=== PATIENT | female | born 2000 | race Caucasian/White ===

== ENCOUNTER 2024-10-02 21:55 | Outpatient (CLI) | payer MEDICARE, SELFPAY | END 2024-10-02 21:56 | disposition home or self-care (01) | LOC: AMB 10-03 14:19 | PROVIDERS: PCP Family Medicine; Visit Provider Emergency Medicine | DX: R51.9 Headache, unspecified (principal); R55 Syncope and collapse | CPT/HCPCS: A0425; A0433 ==

== ENCOUNTER 2024-10-25 08:33 | Emergency (ER) | payer OTHER, SELFPAY ==
--- OUTSIDE RECORDS SUMMARY | 2024-10-03 00:53 | XMS_ITS | Encounter Summary ---
Author Organization [facility] Address [address] [place] [id number] Care Team Providers Care Emergency Nurse Name Role Phone Elsewhere, Pcp Primary Care Provider Unavailabl e Reason for Visit * Reason Comments Respiratory Distress Pain Encounter Details Date Type Department Care Team (Late st Contact Info) Description 10/03/2024 12:53 AM CDT - 10/03/2024 6:39 AM CDT Emergency [facility] Emergency Department [address] [place] [phone] Emilia Ga M.D., M.S. [address] [place] [phone] Migraine Headache (Primary Dx); Pain Back Discharge Disposition: Home or Self Care Social History Tobacco Use Types Packs/Day Years Used Date Smoking Tobacco: Never Assessed Dental Answer Date Recorded Dental: Regular Dentist Unknown 10/04/19 25 Comments Unknown Sex and Gender Information Value [...] 08/23/2024 SUMAtriptan (Imitrex) 25 mg tablet Take 1 tablet (25 mg total) by mouth as needed for migraine. May repeat dose once in 2 hours if migraine is unresolved. Do not exceed 200 mg in 24 hours. 9 tablet 10/03/2024 5:05 AM CDT 10/03/2024 SUMAtriptan (Imitrex) 25 mg tablet Take 25 mg by mouth as needed for migraine. Take 1 tablet (25 mg) by mouth every 2 hours as needed for migraine For adults: may repeat x1 dose after 2 hours if needed; MAX 2 doses/24 hours 08/23/2024 08/28/2025 documented as of this encounter Progress Notes [...] was at risk for self extubation, ED oncology consultant okayed extubation, patient extubated successfully to 4LPM capnography cannula. Patient able to vocalize and is continuing to awake post sedation. Will continue to monitor while in ED. SpO2 stable at 99% on 4LPM. Suction and bag mask at bedside if needed. * Kristie Pineda M.S.W., LKeithS.W. - 10/03/2024 1:57 AM CDT SUBJECTIVE Patient presents as a adult extremis page from the [facility] area for medical workup. Patientis not [...] a adult extremis. The patient presented via [facility]. ASSESSMENT / PLAN ASSESSMENT The patient appears to be sedated and intubated. A full assessment is not completed at this time due to the nature of the urgent medical evaluation. The patient's mother, Daniela, is coping appropriately to the situation. She shares she and the patient are currently staying in a camper and are on the road, moving to [place]. She reports not needing social work support [...] remove the spinal tumors in 2023 in [place], [place]. Mother states that patient has been in a lot of pain and since then and that she has had trouble getting out of bed with pain as well as nausea and vomiting. They are from [facility] and are stopping in this area to visit with family before moving to [place]. Mom states that tonight she was having [...] emergency department as a medical resuscitation fromthe [facility]. On arrival to the scene, EMS [...] 17 Blood Pressure 10/03/24 0058 111/78 SpO2 10/03/24 005 94 % Pain Score -- PHYSICAL EXAMINATION [...] department as a medical resuscitation from the [facility]. She has a history of MS [...] patient and her mother are currently visiting [place] from [facility] to visit the patient's grandmother. Her [...] also try to obtain medical records from [place]. Please see below for further ED course. [...] of the spine in February 2024 at [facility]. As noted in a family medicine note [...] U Negative Ketone, POCT, U Negative Specific Gorham, POCT, U 1.010 Blood, POCT, U Negative [...] along with the tumors as above in [place], [place] in February 2024. At that time, the spinal tumors were reportedly removed, but the plan was to watch thebrain tumors. Since the diagnosis, Bhakti has struggled with pain. Her home pain regimen includes baclofen 5 mg 3 times a day, gabapentin 300 mg 3 times a day, and citalopram 20 mg daily. Patient and mother are currently in [place] visiting family. While there, the patient was [...] we will try to obtain records from [place]. We have transitioned her to propofol for sedation; barring any indication for continued intubation on advanced imaging, I anticipate extubation in the ED to facilitate better evaluation and management of the patient's current challenges. ED Course as of 10/04/24 1412 ThuOctober 03, 2024 0146 Outside records available. Patient s/p laminectomy due to multiple meningiomas on 02/26 at [facility]. Per an E visit family medicine note [...] mg/dL 10/03/2024 4:37 AM CDT PCED Specific Gorham, POCT, U 1.010 1.005 - 1.030 10/03/2024 [...] - DEVICE Fi nal Result POC RST [facility] 200 [place] [address], [facility] PCED [facility] POC 200 [place] [address] * Dipstick, Urine (10/03/2024 3:38 AM CDT) [...] URINE ORDERABLES Final Result Performing Organization Address City/[facility]/ZIP Co de Phone Number [facility] 200 [place] [address], [facility] 200 [place] [address] * Osmolality, Urine (10/03/2024 3:38 AM CDT) Osmolality, U 210 150 - 1150 mOsm/kg 10/03/2024 11:04 AM CDT DT Urine 10/03/2024 3:38 AM CDT 10/03/2024 10:36 AM CDT Emilia Ga M.D., M.S. LAB URINE ORDERABLES Final Result Performing Organization Address City/[facility]/ZIP Co de Phone Number [facility] 200 [place] [address], [facility] 200 [place] [address] * pH, Urine (10/03/2024 3:38 AM CDT) pH, U 6.7 4.5 - 8.0 10/03/2024 11: 04 AM CDT DT Urine 10/03/2024 3:38 AM CDT 10/03/2024 10:36 AM CDT us Emilia Ga M.D., M.S. LAB URINE ORDERABLES Final Result Performing Organization Address City/[facility]/ZIP Co de Phone Number [facility] [address] [place] [phone] [place] [address] 200 [place] [address] * Microscopic Automated (10/03/2024 3:38 AM CDT) Microscopy Normal 10/03/2024 10:49 AM CDT DTL RBC None Seen <3 /hpf 10/03/2024 10:49 AM CDT DTL WBC None Seen /hpf 10/03/2024 10:49 AM CDT DTL Comment: ----REFERENCE VALUE---- <4 (Males) <11 (Females) Urine 10/03/2024 3:38 AM CDT 10/03/2024 10:36 AM CDT Emilia Ga M.D., M.S. LAB URINE ORDERABLES Final Result Performing Organization Address [facility] Co de Phone Number [facility] 200 [place] [address] * Bacterial Culture, Aerobic + Susceptibility, Urine (10/03/2024 3:38 AM CDT) Urine Culture No growth after 1 day of incubation. 10/04/2024 7:42 AM CDT DTL Urine (Urine, Straight Catheter) 10/03/2024 3:38 AM CDT 10/03/2024 11:23 AM CDT Comment:Specimen Source Site : Urine Emilia Ga M.D., M.S. LAB MICROBIOLOGY - G ENERAL ORDERABLES Final Result Performing Organization Address [facility] Co de Phone Number [facility] 200 [place] [address] * Urinalysis, with Microscopic: Urine, Straight Catheter [...] CDT 10/03/2024 10:35 AM CDT us Emilia aG M.D., M.S. LAB URINE ORDERABLES Final Result [facility] [address] [place] [address], [facility] DTL [facility] [address] [place] [address] * CT Lumbar Spine without IV Contrast [...] Reported [facility] the spine [facility]/27/2024. [...] Spine, Neuroradiolo gy RST LOS, Neuroradiology ARZ [facility], Neuroradiology [facility]LA [facility] N/A Computed Tomography, Compute d Tomography Impressions [...] Reported surgical history includes laminectomy T4-T7 at [facility] for meningioma removal involving the spine [...] Anatomical Region Laterality Modality Head, Neuroradiology RST [facility] , Neuroradiology ARZ [facility], Neuroradiology FLA [facility] N/A Computed Tomography, Compute d Tomography 10/03/2024 [...] vertex meningioma. us Emilia Ga M.D., M.S. [facility] CT PROCEDURES Fi nal Result * DX [...] bibasilar atelectasis. us Emilia Ga M.D., M.S. [facility] DIAGNOSTIC IMAGI NG PROCEDURES Final Result * ECG 12 Lead (10/03/2024 1:08 AM CDT) Ventricular Rate ECG/Min 71 BPM MUSE NC Interval 142 ms MUSE QRSD Interval 88 ms MUSE QT Interval 400 ms MUSE QTC Interval 434 ms MUSE P Cornelia 40 degrees MUSE R Cornelia 49 degrees MUSE T Wave Cornelia 32 degrees MUSE 10/03/2024 1:08 AM CDT 10/03/2024 1:14 AM CDT Impressions MUSE - 10/03/2024 1:14 AM CDT Normal sinus rhythm Nonspecific T wave abnormality No previous ECGs available Reviewed by REJI Floyd Narrative Procedure Note Lee Castillo M.B.B.S. - 10/03/2024 IMPRESSION: Normal sinus rhythm Nonspecific T wave abnormality No previous ECGs available Reviewed by REJI Floyd Emilia Ga M.D., M.S. ECG ORDERABLES Ira l Result Performing Organization Address City/[facility] Co de Phone Number MUSE NA * hCG (Human Chorionic Gonadotropin), Quantitative, (10/03/2024 1:04 AM CDT) HCG, Quantitative, , P 1.0 <5 IU/L 10/03/2024 1:31 AM CDT STMA Blood (Blood, Venous) 10/03/2024 1:04 AM CDT 10/03/2024 1:12 AM CDT Emilia Ga M.D., M.S. LAB BLOOD ADD-ON Fin al Result [facility] [address] [place] [address], [facility] STMA [facility] [address] [place] [address] * Magnesium (10/03/2024 1:04 AM CDT) Pathologist [facility] Emergency Department Magnesium, P 1.9 1.7 - 2.3 mg/dL 10/03/2024 1:55 AM CDT DTL Blood (Blood, Venous) 10/03/2024 1:04 AM CDT 10/03/2024 1:33 AM CDT Emilia Ga M.D., M.S. LAB BLOOD ADD-ON Fin al Result [facility] [address] [place] [address], [facility] [address] [place] [address] * Lipase (10/03/2024 1:04 AM CDT) Pathologist [facility] Emergency Department Lipase, S 17 13 - 60 U/L 10/03/2024 1: 56 AM CDT DTL Blood (Blood, Venous) 10/03/2024 1:04 AM CDT 10/03/2024 1:33 AM CDT Emilia Ga M.D., M.S. LAB BLOOD ADD-ON Fin al Result [facility] [address] [place] [address], [facility] [address] [place] [address] * CRP (C-Reactive Protein) (10/03/2024 1:04 AM CDT) Pathologist [facility] Emergency Department C-Reactive Protein (CRP), S <3.0 <5.0 mg/L 10/03/2024 1:56 AM CDT DT Blood (Blood, Venous) 10/03/2024 1:04 AM CDT 10/03/2024 1:33 AM CDT Emilia Ga M.D., M.S. LAB BLOOD ADD-ON Fin al Result [facility] [address] [place] [address], [facility] [address] [place] [address] * CK (Creatine Kinase) (10/03/2024 1:04 AM CDT) Creatine Kinase (CK), S 53 26 - 192 U/L 10/03/2024 1:56 AM CDT DTL Blood (Blood, Venous) 10/03/2024 1:04 AM CDT 10/03/2024 1:33 AM CDT us Emilia Ga M.D., M.S. LAB BLOOD ADD-ON Fin al Result [facility] [address] [place] [address], [facility] DTL [facility] [address] [place] [address] * (ABNORMAL) Basic Metabolic Panel (10/03/2024 1:04 AM CDT) Pathologist [facility] Emergency Department Potassium, P 3.9 3.6 - 5.2 mmol/L [...] M.S. LAB BLOOD ADD-ON Fin al Result [facility] [address] [place] [address], [facility] [address] [place] [address] * (ABNORMAL) CBC with Differential, Blood (10/03/2024 1:04 AM CDT) Hemoglobin 12.5 11.6 - 15.0 g/dL 10/03/2024 [...] M.S. LAB BLOOD ADD-ON Fin al Result [facility] [address] [place] [address] [facility] [address] [place] [address] * Troponin T, Baseline with 2 Hour/6 Hour Reflex Biomarker Panel (10/03/2024 1:04 AM CDT) Troponin T, Baseline, 5th gen <6 <=10 ng/L 10/03/2024 1:31 AM CDT STMA Blood (Blood, Venous) 10/03/2024 1:04 AM CDT 10/03/2024 1:12 AM CDT Emilia Ga M.D., M.S. LAB BLOOD TROPONIN F inal Result Performing Organization Address [facility]/ZIP Co de Phone Number [facility] [address] [place] [address], [facility] [address] [place] [address] * pH (10/03/2024 1:03 AM CDT) pH 7.41 7.35 - 7.45 pH 10/03/2024 1:10 AM CDT STMA Blood 10/03/2024 1:03 AM CDT 10/03/2024 1:08 AM CDT Emilia Ga M.D., M.S. LAB HISTORICAL ORDER S Final Result [facility] [address] [place] [address], [facility] 200 [place] [address] * (ABNORMAL) Calcium, Ionized (10/03/2024 1:03 AM CDT) [facility] Calcium, Ionized, B 4.39(L) 4.65 - 5.30 mg/dL 10/03/2024 1:12 AM CDT STMA Blood (Blood, Venous) 10/03/2024 1:03 AM CDT 10/03/2024 1:08 AM CDT Emilia Ga M.D., M.S. LAB BLOOD NON ADD-ON Final Result Performing Organization Address City/[facility]/ZIP Co de Phone Number [facility] [address] [place] [address], [facility] 200 [place] [address] * Lactate for Sepsis with Reflex, POCT (10/03/2024 1:03 AM CDT) [facility] Lactate, POCT 0.66 0.50 - 2.20 mmol/L 10/03/2024 1:15 AM CDT PCLX Blood (Blood, Venous) 10/03/2024 1:03 AM CDT 10/03/2024 1:03 AM CDT Emilia Ga M.D., M.S. LAB POCT ORDERABLES - DEVICE Final Result [facility] [address] [place] [address], [facility] PCLX [facility] POC [address] [place] [address] * (ABNORMAL) Venous Blood Gas and Electrolytes CG8+, POCT (10/03/2024 1:03 AM CDT) [facility] Sample Site, POCT Venline 10/03/2024 1:15 AM [...] ORDERABLES - DEVICE Final Result POC RST [facility] [address] [place] [address], [facility] POC [address] [place] [address] documented in this encounter Visit Diagnoses Diagnosis [...] (New Bag - Prov ider: Jessenia Davis R.N.)0613 (Stopped - Provider: Jessenia Davis R.N.) ondansetron (PF) injection 4 mg (Zofran) (COMPLETED) 4 mg, intravenous, Once, On Thu10/03/24 at 0220, For 1 dose 0220 (Given - Provid er: Jessenia Davis R.N.) prochlorperazine injection 10 mg (Compazine) (COMPLETED) 10 [...] R.N.) documented in this encounter Care Teams Emergency Nurse Relationship Specialty Start Date End Date Elsewhere, Pcp PCP - General Internal Medicine 10/03/24 documented as of this encounter
[2024-10-25] VITALS (8 sets, daily range): BP systolic 114–130; BP diastolic 71–116; PULSE 63–112; RESP 22–36; TEMP 36.4–36.7; O2SAT 94–100; BMI 34.8
--- OUTSIDE RECORDS SUMMARY | 2024-10-25 08:37 | XMS_ITS | Clinical Summary ---
Author Organization [facility] Address [address] [place] [address] Care Team Providers Care Virtualization Engineer Name Role Phone Elsewhere, Pcp Primary Care Provider Unavailabl e Source Comments Patient records contain information from all sites at [facility]. For routine questions regarding patient records, call [phone] during business hours, M-F 8:00 AM - 5:00 PM Central Time. Record requests for emergency care only can be directed to [phone] at any time.[facility] Allergies No known active allergies Medications SUMAtriptan (Imitrex) 25 mg tablet Take 1 tablet (25 mg total) by mouth as needed for migraine. May repeat dose once in 2 hours if migraine is unresolved. Do not exceed 200 mg in 24 hours. 9 tablet 10/03/2024 5:05 AM CDT 10/03/2024 Active baclofen (LioresaL) 5 mg tablet Take 5 mg by mouth 3 (three) times a day. 08/23/2024 Active citalopram (CeleXA) 20 mg tablet Take 20 mg by mouth daily. 08/23/2024 Active SUMAtriptan (Imitrex) 25 mg tablet Take 25 mg by mouth as needed for migraine. Take 1 tablet (25 mg) by mouth every 2 hours as needed for migraine For adults: may repeat x1 dose after 2 hours if needed; MAX 2 doses/24 hours 08/23/2024 08/29/19 Active Encounters Date Type Department Care Team Description 10/03/2024 12:53 AM CDT - 10/03/2024 6:39 AM CDT Emergency [facility] [address] [place] [id number] Emilia Ga M.D., M.S. Migraine Headache (Primary Dx); Pain Back Discharge Disposition: Home or Self Care from Last 3 Months Social History Tobacco Use Types Packs/Day Years Used Date Smoking Tobacco: Never Assessed Dental Answer Date Recorded Dental: Regular Dentist Unknown 10/04/19 25 Comments Unknown Sex and Gender Information Value Date Recorded Sex Assigned at Not on file Legal Sex Female 12:52 AM CDT Gender Identity Not on file Sexual Orientation Not on file Last Filed Vital Signs Vital Sign Reading [...] AM CDT Body Mass Index - - Plan of Treatment Health Maintenance Due Date Last Done Comments Chlamydia and Gonorrhea Screening 2001 HIV Screening 2001 Hepatitis C Screening 2001 Hepatitis B Vaccines (4 of 4 - 4-dose series) 01/11/2002 01/06/2002, 2001, 2001 COVID-19 Vaccine ( season) 2024 Influenza Vaccine (#1) 2024 02/08/2010 Depression Screening (Annual PHQ-2) 05/11/2024 Cervical/Vaginal Cancer Screening 10/28/2026 10/29/2023 DTaP,Tdap,and Td Vaccines (7 - Td or Tdap) 09/25/2028 09/25/2018, 01/05/2014, 06/02/2013, Additional history exists Pneumococcal vaccine (0-49 years) Aged Out 01/02/2003, 01/06/2002, 2001, Additional history exists No longer eligible based on patient's age to complete this topic IPV Vaccines Completed 01/16/2009, 01/2002, 2001 HPV Vaccines Completed 03/30/2024, 11/09, 10/26/2018 Procedures Procedure Name Priority Date/Time Associated Diagnosis Comments HC URINALYSIS AUTO WO MICRO Routine 10/03/2024 4:36 AM CDT DIPSTICK, U STAT 10/03/2024 3:38 AM CDT OSMOLALITY, U STAT 10/03/2024 3:38 AM CDT PH, U STAT 10/03/2024 3:38 AM CDT MICROSCOPIC AUTOMATED STAT 10/03/2024 3:38 AM CDT URINALYSIS WITH MICROSCOPIC STAT 10/03/2024 3:38 AM CDT BACTERIAL CULTURE, AEROBIC + SUSC, URINE STAT 10/03/2024 3:38 AM CDT EXTUBATION STAT [...] CDT ECG STAT 10/03/2024 1:08 AM CDT HUMAN CHORIONIC GONADOTROPIN (HCG), GRZEGORZ, STAT 10/03/2024 1:04 AM CDT MAGNESIUM, S STAT 10/03/2024 1:04 AM CDT LIPASE, S/P STAT 10/03/2024 1:04 AM CDT C-REACTIVE PROTEIN (CRP), S/P STAT 10/03/2024 1:04 AM CDT CREATINE KINASE (CK), S STAT 10/03/2024 1:04 AM CDT BASIC METABOLIC PANEL, S/P STAT 10/03/2024 1:04 AM CDT CBC WITH DIFFERENTIAL, B STAT 10/03/2024 1:04 AM CDT TROPONIN T, BASELINE, 5TH GEN, P STAT 10/03/2024 1:04 AM CDT LACTATE FOR SEPSIS WITH REFLEX, POCT STAT 10/03/2024 1:03 AM CDT VBG & LYTES CG8+, POCT, B STAT 10/03/2024 1:03 AM CDT PH BLOOD GAS STAT 10/03/2024 1:03 AM CDT CALCIUM, IONIZED, S/B STAT 10/03/2024 1:03 AM CDT from Last 3 Months Results * Dipstick, POCT, Urine (10/03/2024 4:36 AM CDT) Pathologist [facility] Glucose, POCT, U Negative Negative mg/dL 10/03/2024 4:37 AM CDT PCED Ketone, POCT, U Negative Negative mg/dL 10/03/2024 4:37 AM CDT PCED Specific [place], POCT, U 1.010 1.005 - 1.030 10/03/2024 [...] 4:36 AM CDT 10/03/2024 4:38 AM CDT Unknown Provider LAB POCT ORDERABLES - DEVICE Fi nal Result Performing Organization Address City/[facility] Co de Phone Number POC RST [facility] OUT[facility] [address] [place] [address], [place] PCED [facility] [address] [place] [address] * Dipstick, Urine (10/03/2024 3:38 AM CDT) [...] URINE ORDERABLES Final Result Performing Organization Address City/[facility]/ZIP Co de Phone Number [facility] [address] [place] [address], [place] DTL [facility] [address] [place] [address] * Microscopic Automated (10/03/2024 3:38 AM CDT) Microscopy Normal 10/03/2024 10:49 AM CDT DTL RBC None Seen <3 /hpf 10/03/2024 10:49 AM CDT DTL WBC None Seen /hpf 10/03/2024 10:49 AM CDT DT Comment: ----REFERENCE VALUE---- <4 (Males) <11 (Females) Urine 10/03/2024 3:38 AM CDT 10/03/2024 10:36 AM CDT Emilia Ga M.D., M.S. LAB URINE ORDERABLES Final Result Performing Organization Address [facility] Co de Phone Number [facility] [address] [place] [address] * Bacterial Culture, Aerobic + Susceptibility, Urine (10/03/2024 3:38 AM CDT) Urine Culture No growth after 1 day of incubation. 10/04/2024 7:42 AM CDT DT Urine (Urine, Straight Catheter) 10/03/2024 3:38 AM CDT 10/03/2024 11:23 AM CDT Comment:Specimen Source Site : Urine Result [facility] Emilia Ga M.D., M.S. LAB MICROBIOLOGY - G ENERAL ORDERABLES Final Result Performing Organization Address [facility] Co de Phone Number [facility] [address] [place] [address] * pH, Urine (10/03/2024 3:38 AM CDT) pH, U 6.7 4.5 - 8.0 10/03/2024 11: 04 AM CDT DTL Urine 10/03/2024 3:38 AM CDT 10/03/2024 10:36 AM CDT Emilia Ga M.D., M.S. LAB URINE ORDERABLES Final Result Performing Organization Address City/[facility]/ZIP Co de Phone Number [facility] [address] [place], [place] [id number] [place] [address] [address] [place] [address] * Osmolality, Urine (10/03/2024 3:38 AM CDT) Osmolality, U 210 150 - 1150 mOsm/kg 10/03/2024 11:04 AM CDT DTL Urine 10/03/2024 3:38 AM CDT 10/03/2024 10:36 AM CDT Emilia Ga M.D., M.S. LAB URINE ORDERABLES Final Result Performing Organization Address City/[facility] Co de Phone Number [facility] [address] [place] [address] * Urinalysis, with Microscopic: Urine, Straight Catheter [...] 3:38 AM CDT 10/03/2024 10:35 AM CDT Emilia Ga M.D., M.S. LAB URINE ORDERABLES Final Result [facility] [address] [place] [address], [place] DTL [facility] [address] [place] [address] * CT Lumbar Spine without IV Contrast [...] Reported surgical [facility]. [...] Reported surgical history [facility] the spine 02/27/2024. No significant soft tissue fluid collection or inflammatory strandingoverlying the laminectomy defect T4-T7. No acute fracture or traumatic alignment the thoracolumbar spine.Intervertebral disc heights are preserved. No high-grade neural foraminalor spinal canal stenosis. Minimal low-grade retrolisthesis L5 on S1. Other: ETT projects approximately 1.3 cm above the oyselyn. Flattening of the infrahepatic IVC as can be seen with hypovolemia.Bibasilar subsegmental atelectasis IMPRESSION: Status post T4-T7 laminectomy, by report, for resection of meningioma. Nothoracic or lumbar vertebral body fracture detected. us Emilia Ga M.D., M.S. IM CT PROCEDURES Fi nal Result * CT Head without IV Contrast (10/03/2024 1:35 AM CDT) Anatomical Region Laterality Modality Head, Neuroradiology RST LOS , Neuroradiology ARZ LOS, Neuroradiology FLA LOS N/A Computed Tomography, Compute d Tomography 10/03/2024 [...] No acute intracranial findings. Left vertex meningioma. Emilia Ga M.D., M.S. IM CT PROCEDURES Fi nal Result * DX [...] heartsize and bronchovascular markings. Trace bibasilar atelectasis. Emilia Ga M.D., M.S. IMG DIAGNOSTIC IMAGI NG PROCEDURES Final Result * ECG 12 Lead (10/03/2024 1:08 AM CDT) Ventricular Rate ECG/Min 71 BPM MUSE GA Interval 142 ms MUSE QRSD Interval 88 ms MUSE QT Interval 400 ms MUSE QTC Interval 434 ms MUSE P [place] 40 degrees MUSE R [place] 49 degrees MUSE T Wave [place] 32 degrees MUSE 10/03/2024 1:08 AM CDT 10/03/2024 1:14 AM CDT Impressions MUSE - 10/03/2024 1:14 AM CDT Normal sinus rhythm Nonspecific T wave abnormality No previous ECGs available Reviewed by REJI Floyd Narrative Procedure Note Lee Castillo M.B.BDebraSDebra - 10/03/2024 IMPRESSION: Normal sinus rhythm Nonspecific T wave abnormality No previous ECGs available Reviewed by Bee Guerita, CRAT us Emilia Ga M.D., M.S. ECG ORDERABLES Ira l Result MUSE NA * Troponin T, Baseline with 2 Hour/6 Hour Reflex Biomarker Panel (10/03/2024 1:04 AM CDT) Pathologist [facility] Troponin T, Baseline, 5th gen <6 <=10 ng/L 10/03/2024 1:31 AM CDT STMA Blood (Blood, Venous) 10/03/2024 1:04 AM CDT 10/03/2024 1:12 AM CDT Emilia Ga M.D., M.S. LAB BLOOD TROPONIN F inal Result Performing Organization Address City/[facility]/ZIP Co de Phone Number [facility] [address] [place] [address], [place] STMA [facility] [address] [place] [address] * (ABNORMAL) CBC with Differential, Blood (10/03/2024 1:04 AM CDT) [facility] Hemoglobin 12.5 11.6 - 15.0 g/dL 10/03/2024 [...] ADD-ON Fin al Result Performing Organization Address City/[facility]/ZIP Co de Phone Number [facility] [address] STMA [facility] [address] [place] [address] DHPM [facility] [address] [place] [address] * CRP (C-Reactive Protein) (10/03/2024 1:04 AM CDT) [facility] C-Reactive Protein (CRP), S <3.0 <5.0 mg/L 10/03/2024 1:56 AM CDT DTL Blood (Blood, Venous) 10/03/2024 1:04 AM CDT 10/03/2024 1:33 AM CDT us Emilia Ga M.D., M.S. LAB BLOOD ADD-ON Fin al Result [facility] [address] [place] [address], [place] DTL [facility] [address] [place] [address] * hCG (Human Chorionic Gonadotropin), Quantitative, (10/03/2024 1:04 AM CDT) HCG, Quantitative, , P 1.0 <5 IU/L 10/03/2024 1:31 AM CDT STMA Blood (Blood, Venous) 10/03/2024 1:04 AM CDT 10/03/2024 1:12 AM CDT Emilia Ga M.D., M.S. LAB BLOOD ADD-ON Fin al Result Performing Organization Address [facility] Co de Phone Number [facility] [address] [place] [address], [place] STMA [facility] [address] [place] [address] * Magnesium (10/03/2024 1:04 AM CDT) [facility] Magnesium, P 1.9 1.7 - 2.3 mg/dL 10/03/2024 1:55 AM CDT DTL Blood (Blood, Venous) 10/03/2024 1:04 AM CDT 10/03/2024 1:33 AM CDT Result [facility] Emilia Ga M.D., M.S. LAB BLOOD ADD-ON Fin al Result Performing Organization Address [facility] de Phone Number [facility] [address] [place] [address], [place] DTL [facility] [address] [place] [address] * Lipase (10/03/2024 1:04 AM CDT) Pathologist [facility] Lipase, S 17 13 - 60 U/L 10/03/2024 1: 56 AM CDT DTL Blood (Blood, Venous) 10/03/2024 1:04 AM CDT 10/03/2024 1:33 AM CDT Emilia aG M.D., M.S. LAB BLOOD ADD-ON Fin al Result Performing Organization Address City/[facility] Co de Phone Number [facility] [address] [place] [address] * CK (Creatine Kinase) (10/03/2024 1:04 AM CDT) Creatine Kinase (CK), S 53 26 - 192 U/L 10/03/2024 1:56 AM CDT DTL Blood (Blood, Venous) 10/03/2024 1:04 AM CDT 10/03/2024 1:33 AM CDT Emilia Ga M.D., M.S. LAB BLOOD ADD-ON Fin al Result [address] [place] [address] * (ABNORMAL) Basic Metabolic Panel (10/03/2024 1:04 [...] ADD-ON Fin al Result Performing Organization Address [facility] Co de Phone Number [facility] [address] [facility] [address] [place] [address] * Lactate for Sepsis with Reflex, POCT (10/03/2024 1:03 AM CDT) Pathologist [facility] Lactate, POCT 0.66 0.50 - 2.20 mmol/L 10/03/2024 1:15 AM CDT PCLX Blood (Blood, Venous) 10/03/2024 1:03 AM CDT 10/03/2024 1:03 AM CDT Emilia Ga M.D., M.S. LAB POCT ORDERABLES - DEVICE Final Result Performing Organization Address [facility] Co de Phone Number POC [facility] [address] [place] [address], [place] PCLX [facility] POC [address] [place] [address] * (ABNORMAL) Venous Blood Gas and Electrolytes CG8+, POCT (10/03/2024 1:03 AM CDT) Sample Site, POCT Venline 10/03/2024 1:15 AM [...] LAB POCT ORDERABLES - DEVICE Final Result Performing Organization Address City/[facility]/ZIP Co de Phone Number POC RST [facility] INPATIENT [facility]S [address] [place] [address], [place] PCSM [facility] POC [address] [place] [address] * pH (10/03/2024 1:03 AM CDT) pH 7.41 7.35 - 7.45 pH 10/03/2024 1:10 AM CDT STMA Blood 10/03/2024 1:03 AM CDT 10/03/2024 1:08 AM CDT Emilia Ga M.D., M.S. LAB HISTORICAL ORDER S Final Result Performing Organization Address [facility] Co de Phone Number [facility] [address] [place] [address], [facility] [address] [place] [address] * (ABNORMAL) Calcium, Ionized (10/03/2024 1:03 AM CDT) Calcium, Ionized, B 4.39(L) 4.65 - 5.30 mg/dL 10/03/2024 1:12 AM CDT STMA Blood (Blood, Venous) 10/03/2024 1:03 AM CDT 10/03/2024 1:08 AM CDT Emilia Ga M.D., M.S. LAB BLOOD NON ADD-ON Final Result Performing Organization Address [facility]/ZIP Co de Phone Number [facility] [address] [place] [address] from Last 3 Months Insurance [employer] Care Teams Virtualization Engineer Relationship Specialty Start Date End Date Elsewhere, Pcp PCP - General Internal Medicine 10/03/24
--- OUTSIDE RECORDS SUMMARY | 2024-10-25 09:32 | XMS_ITS | Encounter Summary ---
Author Organization [facility] Address [address] [address] Phone Care Team Providers Care Sign Wirer Name Role Phone Josselyn Bates APRN, ELECTRONICS SUPERVISOR Primary Care Pr ovider Reason for Visit * Auth/Cert Specialty Diagnoses / Procedures Referred By Fran ivey Referred To Contact Diagnoses Multiple sclerosis Multiple sclerosis Procedures CPT/PROCEDURE NOT IN LIST SPINAL PUNCTURE,LUMBAR,DIAGNOSTIC Lumbar puncture Servando Ma MD [address] [place] [address] Phone: tel: fax: Referral ID Status Reason Start Date Expiration Date Visits Re quested Visits Authorized [id number] 1 1 Encounter Details Date Type Department Care Team (Late st Contact Info) Description 08/31/2024 Hospital Encounter 32 [facility] INTERVENTIONAL ADMIT/PHASE [address] [place] [address] Servando Ma MD [address] [place] [address] Social History Tobacco Use Types Packs/Day Years Used Date Smoking Tobacco: Former Cigarettes S tarted: 2017 Passive Smoke Exposure: Current Smokeless Tobacco: Never Comments:vapes Alcohol Use Standard Drinks/Week Comments Yes 0 (1 standard drink = 0.6 oz pur e alcohol) occasionally C Utilities Answer Date Recorded In the past 12 months has [employer] electric, gas, oil, or water company threatened to shut off services in your home? No 03/05/2024 PHQ-2 Answer Date Recorded PHQ-2 Total 0 04/18/2024 Hunger Vital Sign Answer Date Recorded Within the past 12 months, y ou worried that your food would run out before you got the money to buy more. Sometimes true Within the past 12 months, t he food you bought just didn't last and you didn't have money to get more. Never true PRAPARE - Transportation Answer Date Re corded In the past 12 months, has l ack of transportation kept you from medical appointments or from getting medications? No 02/09 In the past 12 months, has l ack of transportation kept you from meetings, work, or from getting things needed for daily living? No 03/05/2024 Housing Stability Vital Sign Answer Steve e Recorded In the last 12 months, was t here a time when you were not able to pay the mortgage or rent on time? No 03/05/2024 In the past 12 months, how m any times have you moved where you were living? 1 03/05/2024 At any time in the past 12 m [facility], were you homeless or living in a care home (including now)? No 03/05/2024 EH IP Custom IPV Answer Date Recorded Do you feel UNSAFE in any of your personal relationships with your family members or any other acquaintances? No 2023 Comments No Sex and Gender Information Value Date Recorded Sex Assigned at Not on file Legal Sex Female 8:36 PM CDT Gender Identity Not on file Sexual Orientation Not on file documented as of this encounter Functional Status * Patient's Vision Adequate to Safely Complete Daily Activities Answer Date of Assessment Author Yes 03/05/2024 5:14 PM CDT Jessenia Hall RN * Patient's Memory Adequate to Safely Complete Daily Activities Answer Date of Assessment Author Yes 03/05/2024 5:14 PM CDT Jessenia Hall RN documented as of this encounter Mental Status * Patient's Judgment Adequate to Safely Complete Daily Activities Answer Entry Date Author Yes 03/05/2024 5:14 PM LUZ MARINAT Jessenia Hall RN documented in this encounter Progress Notes * Елена Flaherty RN - 08/31/2024 8:53 AM CDT Call made to patient regarding procedure today with Dr. Ma. Patient got confused with other appointments being cancelled and did not think this appointment was today. Patient would like to reschedule procedure. FRANSISCO Valenzuela from IR scheduling aware. Елена Flaherty RN 08/31/2024 8:55 AM * Bianca Tran RN - 08/23/2024 3:41 PM CDT Attached media from the original note were not included. Procedure: Lumbar puncture Ordering Provider: June Performing Provider: Dr. Ma Date/Time Scheduled: 08/31/24 at 9am Patient is scheduled for above named procedure with indicated provider. Patient instructed to register at 830am on 1st floor and then proceed to the hospital, 2nd floor registration desk across from the elevators. Patient can eat and drink as normal. SIDE SAWYER medications reviewed and confirmed with patient; Mortgage Loan Processing Clerk needed for procedure Should the patient have any further questions, concerns, or need to reschedule, they have been instructed to return call to IR scheduling at [phone]. Patient verbalized understanding. Standing orders for IR pre-procedural scheduling are attached above. Bianca Tran RN 08/23/2024 3:41 PM documented in this encounter Plan of Treatment Not on file documented as of this encounter Visit Diagnoses Not on filedocumented in this encounter Care Teams Sign Wirer Relationship Specialty Start Date End Date Josselyn Bates, GYRO COMPASS TESTER, ELECTRONICS SUPERVISOR [address] [place] [address] PCP - General Nurse Practitioner 07/23/17 documented as of this encounter
--- OUTSIDE RECORDS SUMMARY | 2024-10-25 09:32 | XMS_ITS | Clinical Summary ---
Author Organization [facility] Address [address] [address] Phone Care Team Providers Care Auto Inspector Name Role Phone Josselyn Bates APRN, TIBCO DEVELOPER Primary Care Pr ovider Allergies No known active allergies Medications acetaminophen (TYLENOL) 325 MG tablet Take 325 mg by mouth every four hours as needed. Active SUMAtriptan (Imitrex) 25 MG tablet Take 25 mg by mouth every two hours as needed for Migraine. May repeat x 1 dose after 2 hours. Max of 2 doses/24 hrs 4 02/27/20 25 Active oxyCODONE (Roxicodone) 5 MG immediate release tablet Take 1-2 Tablets by mouth every four hours as needed for Pain. Administer with food to reduce the chance of stomach upset.Take 5 mg for moderate pain (4-6) or 10 mg for severe pain (7-10). 20 Tablet 4 Active Additional Information Patient not taking.Reason: Other, Reported on 04/18/2024 baclofen (Lioresal) 5 MG Tablet Take 1 Tablet by mouth three times a day. 90 Tablet 4 Active Cholecalciferol (Vitamin D) 50 MCG (1999 UT) capsule Take 1 Capsule by mouth one time a day. 1 unit of Vitamin D equals 0.025 mcg of Vitamin D 90 Capsule 2 4 Active magnesium oxide (Mag-Ox) 400 MG tablet Take 1 Tablet by mouth one time a day. Take with food. 90 Tablet 6 4 Active levETIRAcetam (Keppra) 250 MG tablet Do not crush. Week 1: Take 250 mg (1 tab) in AM and 500mg (2 tabs) in PM for 7 days Week 2: Take 250 mg (1 tab) in AM and 250mg (1tab) in PM for 7 days Week 3: Take 250mg (1 tab) at bedtime for 7 days and then stop 42 Tablet 5 Active Active Problems Problem Noted Date Diagnosed Date Postoperative hematoma of mu sculoskeletal structure following musculoskeletal procedure 03/05/2024 Meningioma 03/03/2024 Headache 02/23/2024 Tumor 02/23/2024 Severe episode of recurrent major depressive disorder, without psychotic features 06/18/2017 Encounters Date Type Department Care Team Description 09/01/[address] [place] [address] INTERVENTIONAL RADIOLOGY [address] [place] [phone] Bianca Tran RN 08/31/2024 Hospital Encounter [address] [place] [address] INTERVENTIONAL ADMIT/PHASE [address] [place] [phone] Servando Ma MD 08/30/[address] [place] [address] INTERVENTIONAL RADIOLOGY [address] [place] [phone] Xiomara Stiles RN 08/30/[address] [place] [address] NE[address]Y [address] [place] [phone] Lay Caputo RN 08/24/[address] [place] [address] NE[address]Y [address] [place] [phone] Lay Caputo RN 08/24/[address] [place] [address] NE[address]Y [address] [place] [phone] Lay Caputo RN 08/24/[address] [place] [address] RAD DIAGNOSTIC [address] [place] [phone] Doris Hendrickson RN,BSN,CWOCN 08/24/[address] [place] [address] NEUROLOGY [address] [place] [phone] Lay Caputo RN 08/23/2024 Orders Only [address] [place] [address] NEUR[address]Y [address] [place] [phone] Елена Watkins, GWENDOLYN, TIBCO DEVELOPER Multiple sclerosis (HCC) (Primary Dx) 08/23/2024 Orders Only 32 [facility] NEUROLOGY [address] [place] [phone] Елена Watkins, GWENDOLYN, TIBCO DEVELOPER Multiple sclerosis (HCC) (Primary Dx) from Last 3 Months Immunizations Immunization Administration Dates Next Due DTaP <7 years 06/02/2013, 2,2001,08/11 Hepatitis A, Ped/Adolescent 2 dose 01/05/2014 Hepatitis B, Pediatric/adolescent 2001 Hepatitis B/HIB (Comvax) 01/06/2002,2001,0 2001 IPV 01/16/2009,2001,2001 Influenza Unspecified Formulation 02/08/2010 MMR 01/16/2009,01/02/2003 Pneumococcal Conjugate, (Prevnar)7-valent 01/02/2003,01/06/2002,2001,08/11 Polio Unspecified Formulation 2001, 002 Tdap (7 years and older) 01/05/2014 Varicella (Varivax) 01/05/2014 meningococcal MCV4P (Menactra) 01/05/2014 Surgical History Surgery Date Site/Laterality Comments OTHER SURGICAL HISTORY 02/24/2024 Back/N/A Procedure: Lumbar Puncture; Surgeon: Lalita Panda RRA; Location: [facility] INTERVENTIONAL RADIOLOGY OTHER SURGICAL HISTORY 02/26/2024 Back/N/A Procedure: T6/7 skin marking; Surgeon: Cecil Magallon MD; Location: [facility] INTERVENTIONAL RADIOLOGY THORACIC LAMINECTOMY 02/27/2024 Spine Thoracic/N/A Procedure: T6 - T7 decompressive LAMINECTOMY with tumor excision; Surgeon: Dennis Curtis MD; Location: [facility] OR THORACIC LAMINECTOMY 02/28/2024 Back/Bilateral Procedure: Thoracic 5/6/7 decompression for tumor resection; Surgeon: Dennis Curtis MD; Location: [facility] OR THORACIC LAMINECTOMY 03/06/2024 Back/Bilateral Procedure: T4-T7 wound exploration for evacuation of hematoma, wound culture; Surgeon: Wilfrid Kelley MD; Location: [facility] OR Social History Tobacco Use Types Packs/Day Years Used Date Smoking Tobacco: Former Cigarettes S tarted: 2017 Passive Smoke Exposure: Current Smokeless Tobacco: Never Tobacco Cessation:Counseling Given: Not Answered Comments:vapes Alcohol Use Standard Drinks/Week Comments Yes 0 (1 standard drink = 0.6 oz pur e alcohol) occasionally C Utilities Answer Date Recorded In the past 12 months has th e electric, gas, oil, or water company threatened [...] any time in the past 12 m [facility], were you homeless or living in a usp (including now)? No 03/05/2024 IP Custom IPV Answer Date Recorded Do you feel UNSAFE in any of your personal relationships with your family members or any other acquaintances? No 2023 Comments No Sex and Gender Information Value Date Recorded Sex Assigned at Not on file Legal Sex Female 8:36 PM CDT Gender Identity Not on file Sexual Orientation Not on file Obstetrics History Last Filed Vital Signs Vital Sign Reading Time Taken Comments Blood Pressure 108/71 04/12/2024 10:58 AM NATURAL RESOURCES ENGINEER Pulse 85 04/12/2024 10:58 AM NATURAL RESOURCES ENGINEER Temperature 36.3 C (97.4 F) 03/10/2024 8:38 AM CDT Respiratory Rate 18 03/10/2024 2:34 PM CDT Oxygen Saturation 98% 03/10/2024 8:38 AM CDT Inhaled Oxygen Concentration - - Weight 87.1 kg (192 lb 2.1 oz) 03/10/2024 1:00 P M CDT Height 162.6 cm (5' 4) 03/08/2024 7:36 AM CDT Body Mass Index 32.98 03/08/2024 7:36 AM CDT Plan of Treatment Health Maintenance Due Date Last Done Comments Cervical Cancer Screening 2001 Last pap w/ HPV Testing 2001 Last pap w/o HPV Testing 2001 HPV Vaccine (Standing Order) (1 - 3-dose series) 2016 Meningococcal B Vaccine (Standing Order) (1 of 2 - Standard) 2017 Chlamydia Screening 06/18/2018 06/18/2017 TETANUS (Standing Order) 01/06/2024 014, 06/02/2013, 01/06/2002, Additional history exists Hepatitis B Vaccine (Standing Order) Completed 01/06/2002, 2001, 2001, Additional history exists Pneumococcal/PCV20 Vaccine: Pediatrics (2-5 yrs) and At-Risk Patients (6-49 yrs) (Standing Order) Aged Out 01/02/2003, 01/06/2002, 2001, Additional history exists No longer eligible based on patient's age to complete this topic PERTUSSIS (Standing Order) Completed 01/05, 06/02/2013, 01/06/2002, Additional history exists Procedures Procedure Name Priority Date/Time Associated Diagnosis Comments CHLAMYDIA TRACHOMATIS/NEISSERI A GONORRHOEAE MOLECULAR DETECTION Routine 06/18/2017 2:40 PM NATURAL RESOURCES ENGINEER Potential exposure to STD from Last 3 Months or Most Recently Relevant to Health Maintenance Results * CHLAMYDIA TRACHOMATIS/NEISSERIA GONORRHOEAE MOLECULAR DETECTION (06/18/2017 2:40 PM NATURAL RESOURCES ENGINEER) Chlamydia trachomatis Negative Negative 06/21/2017 1:36 PM NATURAL RESOURCES ENGINEER [facility] Neisseria gonorrhoeae Negative Negative 06/21/2017 1:36 PM NATURAL RESOURCES ENGINEER [facility] Urine specimen (specimen) VOIDED URINE SPECIMEN / Unknown Non-blood collection / Unknown 06/18/2017 2:40 PM NATURAL RESOURCES ENGINEER 06/18/2017 2:51 PM NATURAL RESOURCES ENGINEER Narrative [facility] - 06/21/2017 1:36 PM NATURAL RESOURCES ENGINEER Test detects target DNA by real-time polymerase chain reaction (PCR) technology for amplification and detection on the [employer] 4800 System. us Josselyn Bates DIRECTOR OF TEACHING AND LEARNING, TIBCO DEVELOPER EC MICROBIOLOGY - GENERAL ORDERABLES Final Result [facility] [address] [place] [address], [facility] from Last 3 Months or Most Recently Relevant to Health Maintenance Insurance [facility] Advance Directives For more information, please contact: [phone] * Full Code (Latest Code Status on File) Date Activated Date Inactivated Comments 03/05/2024 11:20 AM 03/10/2024 7:48 PM * Full Code Date Activated Date Inactivated Comments 02/23/2024 5:49 PM 03/03/2024 9:00 PM Care Teams Auto Inspector Relationship Specialty Start Date End Date Josselyn Bates, DIRECTOR OF TEACHING AND LEARNING, TIBCO DEVELOPER [address] [place] [id number] PCP - General Nurse Practitioner 07/23/17
[2024-10-25 09:44] LABS: Basophils Absolute Auto 0.02 K/uL (0.00-0.30); Basophils Percent Auto 0.2 % (0.0-3.0); Eosinophils Absolute Auto 0.08 K/uL (0.00-0.50); Eosinophils Percent Auto 0.8 % (0.0-7.0); Hematocrit 41.6 % (33.0-51.0); Hemoglobin* 13.6 gm/dL (12.0-16.0); Immature Granulocytes Abs Auto 0.01 K/uL (0.00-0.30); Immature Granulocytes Pct Auto 0.1 %; Lymphocytes Percent Auto 17.2 % (20-44); Mean Corpuscular HGB Conc 33 gm/dL (32-36); Mean Corpuscular Hemoglobin 27 pg (26-34); Mean Corpuscular Volume 82 fL (80-100); Neutrophils Percent Auto 75.7 % (42.0-72.0); Platelet Count* 422 K/uL (140-440); RDW Coefficient of Variation % 13.3 % (11.5-15.5); Red Blood Count 5.06 m/uL (4.00-5.20); White Blood Count* 9.87 K/uL (4.50-11.00)
[2024-10-25 09:46] LABS: Slide Review Reflex No
[2024-10-25] MEDS: OLANZapine 5 MG/ML inj IVP (09:51)
[2024-10-25 09:58] LABS: Albumin* 4.6 g/dL (3.3-5.0); Chloride* 104 mmol/L (96-114); Potassium* 4.2 mmol/L (3.6-5.1); Sodium* 137 mmol/L (135-149)
[2024-10-25 10:00] LABS: Blood Urea Nitrogen* 12 mg/dL (5-24); Creatinine* 0.7 mg/dL (0.5-1.5); Est. Creatinine Clearance* 107.93; Estimated Glomerular Filt Rate 125 ml/min
[2024-10-25 10:01] LABS: Alanine Aminotransferase* 19 U/L (4-35); Alkaline Phosphatase* 97 U/L (40-150); Anion Gap 10 mEq/L (7-15); Aspartate Amino Transferase* 30 U/L (12-35); Bilirubin Total* 0.5 mg/dL (0.1-1.5); Carbon Dioxide* 23 mmol/L (20-32); Glucose* 105 mg/dL (60-115); Lipase* 52 U/L (23-300)
[2024-10-25 10:02] LABS: Magnesium* 1.9 mg/dL (1.5-2.6)
[2024-10-25] MEDS: LORazepam 2 MG/ML inj 1 MG IVP (10:36)
--- NOTE | 2024-10-25 11:08 | ED.NURSE ---
Mom did take me aside to report that her daughter uses kratom tablets that are bought at [employer]. We have gone broke buying it.
--- NOTE | 2024-10-25 11:09 | ED.NURSE ---
Patient is not on pulse oximetry or knitting teacher due to her pulling these off repeatedly. She is on camera for safety and mom and grandma remain in room.
[2024-10-25] MEDS: diazePAM 5 MG/ML inj IV (11:16)
[2024-10-25] MEDS: BACLOFEN 10 MG TABLET 5 MG PO (11:30)
--- NOTE | 2024-10-25 15:03 | ED.GENADULT ---
HPI - General Adult General Date Seen: 10/25/24 Chief complaint: Unspecified Complaint, Adult Stated complaint: has MS/body sweats/vomiting/headaches/dizzy Time Seen by Provider: 10/25/24 08:38 Source: patient and family Mode of arrival: ambulatory Limitations: no limitations History of Present Illness HPI narrative: Patient is a 24-year-old female presenting with her parents and grandmother for multiple concerns. And February she was diagnosed with multiple sclerosis and had multiple meningiomas removed surgically. This was done in [place]. She has not seen a neurologist since then. She was discharged and baclofen 5 mg t.i.d. and gabapentin 3 2 mg t.i.d. along with Celebrex 200 mg daily. Today patient has been having spasms in [place] her body feels like she is getting constant electrical shocks. She is unable to sit still and keeps yelling now asking someone to help her. She denies any hallucinations. Does states she was very nauseated prior to arrival and has been dry heaving in her ED room. States she also feels constantly hot and cold. Of note she had symptoms was severe headache and body pain 2 weeks ago up in was brought in [facility]. She was having the quite a bit of pain at that time and was given 300 mcg of fentanyl and eventually needed intubation for it. She was discharged later that day from the ED. Family does state the symptoms seemed different today. Initially patient said she stopped the baclofen due to incontinence but was unsure if it was 3 days ago or a week ago. She has been having difficulty concentrating because of her symptoms. Her mother is not sure when she stopped the medication either. They are currently staying with the patient's grandmother as they work on moving to [place]. Related Data Home Medications ?Medication ?Instructions ?Recorded ?Confirmed baclofen 5 mg tablet 5 mg PO 3XD 10/12/24 10/12/24 citalopram 20 mg tablet 20 mg PO DAILY 10/12/24 10/12/24 gabapentin 300 mg capsule 300 mg PO 3XD 10/12/24 10/12/24 sumatriptan succinate 25 mg tablet mg PO 10/12/24 10/12/24 Allergies Allergy/AdvReac Type Severity Reaction Status Date / Time adhesive tape Allergy Verified 10/12/24 11:59 Review of Systems Status of ROS: Reports: 10 or more systems reviewed and unremarkable except as noted in History and below [facility] Medical History Anxiety ?F41.9 - Anxiety disorder, unspecified (ICD-10) Depression ?F32.A - Depression, unspecified (ICD-10) PTSD (post-traumatic stress disorder) ?F43.10 - Post-traumatic stress disorder, unspecified (ICD-10) Migraine with aura ?G43.109 - Migraine with aura, not intractable, without status migrainosus (ICD-10) Multiple sclerosis ?G35 - Multiple sclerosis (ICD-10) Meningioma ?D32.9 - Benign neoplasm of meninges, unspecified (ICD-10) Surgical History Meningioma, spinal ?D32.1 - Benign neoplasm of spinal meninges (ICD-10) Social History Smoking Status: Smoker, status unknown Do you use any of these nicotine containing products: Vaping Products Non-prescribed substance use: other Non-prescribed substance use details: [facility] Exam Narrative: Exam Narrative: Const: Well-nourished, Well-developed, in moderate to severe distress. Is unable to lay still in her bed Eyes: PERRL, no conjunctival injection, and symmetrical lids HENT: Atraumatic external nose and ears. Moist mucous membranes. Neck: Symmetric, trachea midline, No thyromegaly. CVS: RRR, No murmurs or gallops. Peripheral pulses 2+ and equal in all extremities RESP: Unlabored respiratory effort. Clear to auscultation bilaterally. GI: Nontender/Nondistended, No rebound or guarding. MSK:Extremities w/o deformity, Normal Active ROM Skin: Warm, Dry. No rashes or lesions. Neuro: Normal Muscle tone, No focal neurological deficits but does seem to have constant spasms. Psych: Awake, Alert, & Oriented x3. Appropriate mood and affect. Const: Vital Signs, click to edit/add: Vital Signs - 24 hr 10/25/24 08:52 10/25/24 10:10 10/25/24 10:15 Temperature 97.6 F Pulse Rate 79 86 Pulse Rate [Pulse Oximeter] 64 Respiratory Rate 36 H Blood Pressure Blood Pressure [Ri ght Upper Arm] 130/116 H Pulse Oximetry 100 95 94 Oxygen Delivery Me thod Room Air 10/25/24 10:36 10/25/24 10:45 10/25/24 11:00 Temperature Pulse Rate 90 71 82 Pulse Rate [Pulse Oximeter] Respiratory Rate 34 H Blood Pressure 114/71 Blood Pressure [Ri ght Upper Arm] Pulse Oximetry 97 97 96 Oxygen Delivery Me thod 10/25/24 11:15 10/25/24 12:13 Temperature 98.0 F Pulse Rate 112 H Pulse Rate [Pulse Oximeter] 63 Respiratory Rate 22 Blood Pressure Blood Pressure [Ri ght Upper Arm] Pulse Oximetry 96 98 Oxygen Delivery Me thod Room Air Course Vital Signs Vital signs: Initial Vital Signs Temperature 97.6 F 10/25/24 08:52 Temperature Source Temporal Artery Scan 10/25/24 08:52 Pulse Rate 64 10/25/24 08:52 Respiratory Rate 36 H 10/25/24 08:52 Blood Pressure 130/116 H 10/25/24 08:52 Blood Pressure Mean 120 H 10/25/24 08:52 Pulse Oximetry 100 10/25/24 08:52 Oxygen Delivery Method Room Air 10/25/24 08:52 Vital Signs Temperature 97.6 F 10/25/24 08:52 Pulse Rate 64 10/25/24 08:52 Respiratory Rate 36 H 10/25/24 08:52 Blood Pressure 130/116 H 10/25/24 08:52 Pulse Oximetry 100 10/25/24 08:52 Oxygen Delivery Method Room Air 10/25/24 08:52 Temperature 98.0 F 10/25/24 12:13 Pulse Rate 63 10/25/24 12:13 Respiratory Rate 22 10/25/24 12:13 Blood Pressure 114/71 10/25/24 10:36 Pulse Oximetry 98 10/25/24 12:13 Oxygen Delivery Method Room Air 10/25/24 12:13 Medications Administered Medications: Discontinued Medications Generic Name Dose Route Start Last Admin Trade Name Freq PRN Reason Stop Dose Admin Baclofen 5 mg 10/25/24 11:19 10/25/24 11:30 Baclofen 10 Mg Tablet PO 10/25/24 11:20 5 mg ONCE ONE Administration Diazepam 5 mg 10/25/24 11:04 10/25/24 11:16 Diazepam 5 Mg/Ml Inj IV 10/25/24 11:05 5 mg ONCE ONE Administration Lorazepam 0.5 mg 10/25/24 09:31 10/25/24 11:43 Lorazepam 0.5 Mg Tablet PO 10/25/24 09:32 Not Given ONCE ONE Lorazepam 0.5 mg 10/25/24 09:32 10/25/24 10:27 Lorazepam 2 Mg/Ml Inj IVP 10/25/24 09:33 Not Given ONCE ONE Lorazepam 1 mg 10/25/24 10:19 10/25/24 10:36 Lorazepam 2 Mg/Ml Inj IVP 10/25/24 10:20 1 mg ONCE ONE Administration Olanzapine 5 mg 10/25/24 09:39 10/25/24 09:51 Olanzapine 5 Mg/Ml Inj IVP 10/25/24 09:40 5 mg ONCE ONE Administration Medical Decision Making MDM Narrative Medical decision making narrative: Patient is a 24-year-old female presenting to emergency department for multiple complaints. Considering the baclofen has been stopped there is some concern for baclofen withdrawal. It was a relatively small dose but she still can get withdrawals from it. Due to this I did try given her some Ativan. Also tried Zyprexa to see if some of her symptoms were hallucinations. Basic lab work was ordered. Symptoms could also be from untreated multiple sclerosis. His of her complex medical history. I did contact [facility] for consult. Explain to him my concerns. With possibility of it being a baclofen withdrawal of it was recommended to transfer the patient to a hospital that has Neurology available. Due that we will try and transfer the patient. She also recommended that we can do Ativan and/or Valium along with restarting the baclofen if benzodiazepines are not helping. She states last case resort could be started the patient on propofol and intubation. Family would prefer to be transferred to [place] but they have no beds available. I did speak to their neurologist though and he states is a relatively small doses for the baclofen but there is always the possibility could be withdrawal symptoms. He also states with how she is acting with her symptoms we may want to have further evaluation for other causes of her symptoms. I was eventually able to be told that they believe she stop the baclofen 7 days ago. Family does state she has been having some symptoms over the past few nights. Family did also me she is using a drug called Kratom that she gets from a local smoke shop. This drug is not FDA approved and it is withdrawal symptoms can be similar to what her current symptoms are. Although she only takes it when they are able to afford it so does not take medication regularly. She does buy it she will take all 4 pills in 1 day. She has been taking it because it helps with her spasms she states. She has been in her room yelling frequently that she needs something to take away her symptoms. She is frequently yelling at her mom to buy her more Kratom. When her mom comes out of the room to speak to me the patient does not yell as much but is still moving around in her bed frequently. Having longer conversation with her mom, her mom is now concerned that she might be having some addiction to this Kratom. She very well could be having addiction but I would expect she would need to take it more frequently to have these withdrawal symptoms. Mother did eventually go home and the patient went from yelling constantly for 5 hours and has now been quiet for the past hour. This could all be psychiatric related but with her complicated history a I do not feel comfortable definitively say it is not baclofen withdrawal or symptoms of her MS. Neurology recommended to not treat for MS at this time until we can definitively rule out the withdrawal symptoms. In a now they also recommended MRI but we are unable to get her to lay still for 1. I initially spoke to the [facility] elevator operator freight who states the patient does not sound like she needs ICU. [facility] accepted her for transfer. Of note according to Up[employer] clonidine 0.1 mg can be used to treat her symptoms with the patient is now sleeping and we do not want to wake her up to give her the medication as she is finally calm. Lab Data Labs: Lab Results 10/25/24 Range/Units 09:38 WBC 9.87 (4.50-11.00) K/uL RBC 5.06 (4.00-5.20) m/uL Hgb 13.6 (12.0-16.0) gm/dL Hct 41.6 (33.0-51.0) % MCV 82 (80-100) fL MCH 27 (26-34) pg MCHC 33 (32-36) gm/dL RDW Coeff of Cammy 13.3 (11.5-15.5) % Plt Count 422 (140-440) K/uL Neut % (Auto) 75.7 H (42.0-72.0) % Lymph % (Auto) 17.2 L (20-44) % Young % (Auto) 6.0 (0.0-11.0) % Eos % (Auto) 0.8 (0.0-7.0) % Baso % (Auto) 0.2 (0.0-3.0) % Neut # (Auto) 7.50 H (1.7-7.0) K/uL Lymph # (Auto) 1.70 (0.90-2.90) K/uL Young # (Auto) 0.60 (0.00-0.90) K/UL Eos # (Auto) 0.08 (0.00-0.50) K/uL Baso # (Auto) 0.02 (0.00-0.30) K/uL Abs Immat Gran (auto) 0.01 (0.00-0.30) K/uL Imm/Tot Granulo (auto) 0.1 % Sodium 137 (135-149) mmol/L Potassium 4.2 (3.6-5.1) mmol/L Chloride 104 (96-114) mmol/L Carbon Dioxide 23 (20-32) mmol/L Anion Gap 10 (7-15) mEq/L BUN 12 (5-24) mg/dL Creatinine 0.7 (0.5-1.5) mg/dL Estimated Creat Clear 107.93 Estimated GFR 125 ml/min Glucose 105 (60-115) mg/dL Calcium 10.0 (8.4-10.6) mg/dL Magnesium 1.9 (1.5-2.6) mg/dL Total Bilirubin 0.5 (0.1-1.5) mg/dL AST 30 (12-35) U/L ALT 19 (4-35) U/L Alkaline Phosphatase 97 (40-150) U/L Total Protein 8.0 (6.0-8.3) g/dL Albumin 4.6 (3.3-5.0) g/dL Lipase 52 (23-300) U/L ECG Data Attestation: I personally reviewed and interpreted this ECG as follows: Prior ECG tracings: not available for review Interpretation: Sinus bradycardia with a rate 52 beats per minute, normal intervals, normal axis, no ST or T-wave abnormalities. Critical Care Time Critical Care Time Critical Care Time: Yes Attestation: The patient required my highest level preparedness to intervene emergently and I personally spent this critical care time directly and personally managing the patient. This critical care time included: Obtaining a history; Examining the patient; Pulse oximetry; Ordering and reviewing of studies; Arranging urgent treatment with development of a management plan; Evaluation of patients response to treatment; Frequent reassessment discussions with other providers. This critical care time was performed to assess and manage the high probability of imminent life-threatening deterioration that could result in multiorgan failure. It was exclusive of separate billable procedures and treating other patients and teaching time. Total Critical Care Time in Minutes: 57 Discharge Plan Discharge Clinical Impression: Muscle spasticity Prescriptions: No Action sumatriptan succinate 25 mg tablet PO citalopram 20 mg tablet 20 mg PO DAILY gabapentin 300 mg capsule 300 mg PO 3XD baclofen 5 mg tablet 5 mg PO 3XD Follow Up/Referrals: Provider,Not a Local [Primary Care Provider, Family Practice]
--- NOTE | 2024-10-25 16:25 | ED.NURSE ---
RN to RN report given to unit at [phone].
== END 2024-10-25 16:33 | disposition other institution (70) ==
PROVIDERS: Emergency Provider Student in an Organized Health Care Education/Training Program
DX: M62.838 Other muscle spasm (principal)
CPT/HCPCS: 36415; 80053; 81001; 83690; 83735; 85025; 93005; 99285; 99291; A9270; J2060; J3360

== ENCOUNTER 2024-10-25 16:00 | Outpatient (CLI) | payer OTHER, SELFPAY | END 2024-10-25 16:01 | disposition home or self-care (01) | LOC: AMB 10-26 11:28 | PROVIDERS: Visit Provider Emergency Medicine | DX: M62.838 Other muscle spasm (principal) | CPT/HCPCS: A0425; A0427 ==

== ENCOUNTER 2024-10-29 11:24 | Outpatient (CLI) | payer SELFPAY ==
--- OUTSIDE RECORDS SUMMARY | 2024-10-03 00:53 | XMS_ITS | Encounter Summary ---
Author Organization [facility] Address [address] [place] [address] Care Team Providers Care Diesel Technician Mechanic Name Role Phone Elsewhere, Pcp Primary Care Provider Unavailabl e Reason for Visit * Reason Comments Respiratory Distress Pain Encounter Details Date Type Department Care Team (Late st Contact Info) Description 10/03/2024 12:53 AM CDT - 10/03/2024 6:39 AM CDT Emergency [facility] Emergency Department [address] [place] [id number] Emilia Ga M.D., M.S. [address] [place] [address] Migraine Headache (Primary Dx); Pain Back Discharge Disposition: Home or Self Care Social History Tobacco Use Types Packs/Day Years Used Date Smoking Tobacco: Never Assessed Comments Unknown Sex and Gender Information Value Date Recorded Sex Assigned at Not on file Legal Sex Female 12:52 AM CDT Gender Identity Not on file Sexual Orientation Not on file documented as of this encounter Last Filed Vital Signs Vital Sign Reading Time Taken Comments Blood Pressure 115/71 10/03/2024 6:15 AM CDT Pulse 76 10/03/2024 6:15 AM CDT Temperature 36.9 C (98.4 F) 10/03/2024 1:47 AM CDT Respiratory Rate 18 10/03/2024 6:15 AM CDT Oxygen Saturation 99% 10/03/2024 6:15 AM CDT Inhaled Oxygen Concentration - - Weight - - Height 164 cm (5' 4.57) 10/03/2024 1:06 AM CDT Body Mass Index - - documented in this encounter Discharge Instructions * Discharge Instructions* Colleen Robbins M.D. - 10/03/2024 4:44 AM CDT Bhakti was seen in the ED today for a headache and back pain. Because her pain was so severe, theambulance team put her on a breathing machine to help keep her comfortable. We were able to take the breathing to bout a control her pain with medications for a migraine. At home, please restart the pain medication regimen she was previously on: 1. Baclofen 5 mg 3 times a day 2. Gabapentin 300 mg 3 times a day 3. Ibuprofen 600mg every 6 hours as needed for pain 4. Acetaminophen 1000mg every 6 hours as needed for pain 5. Lidocaine patches We've refilled her Sumatriptan prescription as well. Please return to the emergency department for worsening pain, fevers, or any other concerns. documented in this encounter Medications at Time of Discharge baclofen (LioresaL) 5 mg tablet Take 5 mg by mouth 3 (three) times a day. 08/23/2024 citalopram (CeleXA) 20 mg tablet Take 20 mg by mouth daily. 08/23/2024 SUMAtriptan (Imitrex) 25 mg tablet Take 25 mg by mouth as needed for migraine. Take 1 tablet (25 mg) by mouth every 2 hours as needed for migraine For adults: may repeat x1 dose after 2 hours if needed; MAX 2 doses/24 hours 08/23/2024 08/28/2025 SUMAtriptan (Imitrex) 25 mg tablet Take 1 tablet (25 mg total) by mouth as needed for migraine. May repeat dose once in 2 hours if migraine is unresolved. Do not exceed 200 mg in 24 hours. 9 tablet 10/03/2024 5:05 AM CDT 10/03/2024 documented as of this encounter Progress Notes * Khai Head, R.R.T., L.R.T. - 10/03/2024 2:33 AM CDT Patient arrived per by EMS intubated with 7.0ETT secured at 24cm Teeth. Good bilateral breathing sounds, positive end tidal CO2. Initial vent settings CMV Vt 350, PEEP 8, RR 14, FiO2 30%. Patient transported to CT and then to Center for extubation. Upon turning off sedation patient woke up rapidly and was at risk for self extubation, ED enrollment consultant okayed extubation, patient extubated successfully to 4LPM capnography cannula. Patient able to vocalize and is continuing to awake post sedation. Will continue to monitor while in ED. SpO2 stable at 99% on 4LPM. Suction and bag mask at bedside if needed. * Kristie Pineda M.S.W., Yvette.W. - 10/03/2024 1:57 AM CDT SUBJECTIVE Patient presents as a adult extremis page from the [facility] area for medical workup. Patientis not assessed due to receiving urgent medical evaluation. Social work met the patient's mother, Daniela, when the patient arrived as she rode in the ambulancewith EMS to the ED. Daniela shares that last February, the patient with diagnosed with multiple sclerosis as well as a brain tumor and spinal tumors. Since then, the patient has faced obstacles in regards to her health and often experiences pain, nausea, and low energy. Daniela shares recently the patient has been feeling unwell and today she started vomiting and having uncontrollable pain. Daniela states the patient often metabolizes pain medications quickly and so many are not overtly effective for the patient. Further, she shares that the EMS crew was not able to control the patient's pain levels this evening and therefore intubated the patient en route to the emergency department. Daniela was in the resus bay for a majority of the patient's initial assessment. She is able to converse with the medical team about the patient's medical history and watch her workup. Social work provided Daniela with a coffee and Daniela otherwise was coping appropriately at that time. She is aware social work remains available for support. OBJECTIVE ED social work responded to the resuscitation bay in the context of a adult extremis. The patient presented via [facility]. ASSESSMENT / PLAN ASSESSMENT The patient appears to be sedated and intubated. A full assessment is not completed at this time due to the nature of the urgent medical evaluation. The patient's mother, Daniela, is coping appropriately to the situation. She shares she and the patient are currently staying in a camper and are on the road, moving to [place]. She reports not needing social work support at this time and is aware social work remains available. PLAN Social work remains available as needed. Rob Higgins, Marco. 10/03/24 documented in this encounter ED Notes * Jessenia Davis R.N. - 10/03/2024 1:48 AM CDT Patient brought in by EMS as medical resuscitation. Speaking with patients mother she states that the patient was just recently diagnosed with MS as well as a brain tumor and multiple spinal tumors. She was diagnosed with the MS and tumors and had an operation to remove the spinal tumors in 2023 in [place], [place]. Mother states that patient has been in a lot of pain and since then and that she has had trouble getting out of bed with pain as well as nausea and vomiting. They are from [facility] and are stopping in this area to visit with family before moving to [place]. Mom states that tonight she was having severe nausea and vomiting and between vomiting would pass out in her lap on the bathroom floor. Jessenia Davis R.N. 10/03/24 0203 * Colleen Robbins M.D. - 10/03/2024 1:16 AM CDT CHIEF COMPLAINT/REASON FOR VISIT Respiratory Distress and Pain HISTORY OF PRESENT ILLNESS/REVIEW OF SYSTEMS Bhakti is a 24 y.o. with unclear past medical history but reportedly brain tumors, spinal tumor is status post removal, and MS presenting to the emergency department as a medical resuscitation fromthe [facility]. On arrival to the scene, EMS reports that she was having severe pain so gave multiple doses of medications includin mcg of fentanyl, 0.5 mg of Ativan, 6 mg Versed, 25 mg ketamine. They report that a couple of minutes after each dose she would again have significant pain sothey ultimately decided to intubate her at 0022 for pain control. RSI with ketamine 250 mg and rocuronium 100 mg. She was then placed on a ketamine infusion. EMS reports that the patient was hemodynamically stable during transport. OBJECTIVE Initial Vitals Temperature 10/03/24 0147 36.9 ??C Pulse Rate 10/03/24 0100 89 Heart Rate 10/03/24 0058 94 Resp Rate 10/03/24 0058 17 Blood Pressure 10/03/24 0058 111/78 SpO2 10/03/2457 94 % Pain Score -- PHYSICAL EXAMINATION Constitutional: Nursing and triages notes and vitals reviewed. intubated and sedated HENT: Normocephalic and atraumatic. No nasal discharge. Oropharynx is clear and moist. Mucous membranes are moist. Cardiovascular: Regular rate and rhythm. No murmur heard. Pulmonary: Clinically ventilated with ET tube in place. Breath sounds present and clear to auscultation bilaterally. Abdominal: Soft. Nondistended. No obvious abdominal tenderness on palpation. Musculoskeletal: No tenderness. Normal range of motion. Neurological: Unable to assess as she is currently paralyzed with rocuronium and sedated Skin: Skin is warm and dry. No rash noted. MEDICAL DECISION MAKING Bhakti is a 24 y.o. with unclear medical history presenting to the emergency department as a medical resuscitation from the [facility]. She has a history of MS and spinal tumors reportedly removed. Per EMS report, the patient was having head and back pain that they tried to treat with: 300 mcg of fentanyl, 0.5 mg of Ativan, 6 mg Versed, 25 mg ketamine. They report that a couple of minutes after each dose she would again have significant pain so they ultimately decided to intubate her at 0022 for pain control. RSI with ketamine 250 mg and rocuronium 100 mg. She was then placed on a ketamine infusion. The patient and her mother are currently visiting [place] from [facility] to visit the patient's grandmother. Her mother reports that she has daily pain though her pain was worse today prompting calling EMS for further management symptoms. This case is overall incredibly challenging as we have no prior medical records available nor is she able to provide any further history. Physical examination is overall unrevealing but she is currently paralyzed. In the resuscitation bay, vital signs were stable. Ketamine infusion was transitionedto propofol for sedation. VBG showed pH of 7.39, pCO2 of 30, HC03 18, normal electrolytes, glucose 87. Lactate was 0.66. ECG obtained demonstrated normal sinus rhythm with normal intervals, no evidence of acute ischemia. Chest x-ray obtained demonstrated endotracheal tube appropriately above the yoselyn, trachea midline, no obvious pneumothorax or effusion. We will proceed to CT imaging of her head, thoracic, and lumbar spine for further evaluation given her symptoms of pain in her head and back today. We will then plan to wean her off of sedation with plans for extubation for further evaluation and management of her symptoms to determine if this is her chronic pain that is uncontrolled versus something new. We will also try to obtain medical records from [facility]. Please see below for further ED course. CLINICAL IMPRESSION ED Course as of 10/03/24 0739 ThuOctober 03, 2024 0133 HCG, Quantitative, , P: 1.0 0133 CBC overall unremarkable. 0133 Troponin T, Baseline, 5th gen: <[address] Head without IV Contrast IMPRESSION: 1. Negative for acute intracranial finding. 2. Left vertex meningioma. 0150 CT Thoracic Spine without IV Contrast IMPRESSION: 1. Postoperative laminectomy T4-T7 without significant underlying soft tissue collection or inflammatory stranding to suggest acute process. 2. No acute fracture or traumatic malalignment of the thoracolumbar spine CT imaging is overall reassuring against any acute changes contributing to her symptoms today. Meningioma and postoperative changes appear stable. 0200 We were able to obtain records from outside facilities and further review her medical history.The patient is status post a laminectomy due to multiple meningiomas of the spine in February 2024 at [facility]. As noted in a family medicine note on June 17, the patient was taking baclofen 5 mg 3 times daily, gabapentin 300 mg 3 times daily, Celebrex 200 mg daily, and acetaminophen as needed with reported adequate management of her pain. It was also noted that she used lidocaine patches and oxycodone for breakthrough pain. At that time the other of the new reported that the patient had discontinued many of these medications due to her pain improvement and she you was instructed to use the baclofen as needed for muscle spasms. The patient also has a history of migraines with aura occurring multiple times weekly. She reportedly typically uses sumatriptan for management. 0213 The patient was successfully extubated at bedside with respiratory therapy. She is breathing spontaneously and following very simple commands. Her mother is at bedside. We will continue to closely monitor and re-evaluate her symptoms. 0230 On re-evaluation, the patient continues to be a more alert and is responding to commands appropriately. She has had no airway issues postextubation. We will continue to closely monitor. 0330 On re-evaluation, the patient reports that she has been struggling with a migraine headache she reports that this is more intense than her typical migraines. She has previously used sumatriptan though she reports that she is currently out of this medication. She also reports urinary urgency. We will treat her headache with a migraine cocktail and obtain a urinalysis for further evaluation ofa possible urinary tract infection. She has no notable back pain at this time. 0411 Lipase, S: 17 0411 Magnesium, P: 1.9 0411 Creatine Kinase (CK), S: 53 0442 Dipstick, POCT, Urine: Glucose, POCT, U Negative Ketone, POCT, U Negative Specific Quinn, POCT, U 1.010 Blood, POCT, U Negative pH, POCT, Urine 7.0 Protein, POCT, U Negative Nitrites, POCT, U Negative Leukocytes, POCT, U Negative Dipstick urine shows no evidence of urinary tract infection. 0442 SpO2: 97 % 0442 Delivery Method: Room air 0459 On re-evaluation, the patient's headache has resolved with Compazine, Toradol, and IV fluids. She feels significantly improved and has been resting comfortably in bed. Vital signs remained stable. It appears that her pain was much better controlled when she was taking her baclofen and gabapentin regularly. Advised the patient that she should begin to take these medications regularly again tohelp better control her pain. We have also refilled her sumatriptan for her migraine headaches. Shepreviously took Celebrex for her pain as well, however she reports that she had significant hair loss related to this and does not want a refill of this medication at this time. I recommended close follow up with her primary care provider regarding her symptoms. All questions answered to the best of my ability. Return precautions discussed including intractable pain, sudden weakness/numbness/tingling, chest pain, difficulty breathing, or other concerning symptoms. The patient and her mother verbalized understanding and agreement with return precautions. The patient was discharged to home in stable condition. Final Diagnoses: as of 10/03/24 0739 Migraine Headache Pain Back Colleen Robbins M.D. Resident 10/03/24 0739 * Emilia Ga M.D., M.S. - 10/03/2024 1:06 AM CDT I have personally seen and examined this patient. I have fully participated in the care of this patient. I have reviewed all clinical information including history, physical exam, orders, and plan. Mary with the note of the resident. 24 year old female with unclear past medical history, but reportedly brain tumors, spinal tumors s/p removal, and MS presents to the ED intubated due to pain control. Per mother, patient was diagnosed with MS along with the tumors as above in [place], [place] in February 2024. At that time, the spinal tumors were reportedly removed, but the plan was to watch thebrain tumors. Since the diagnosis, Bhakti has struggled with pain. Her home pain regimen includes baclofen 5 mg 3 times a day, gabapentin 300 mg 3 times a day, and citalopram 20 mg daily. Patient and mother are currently in [place] visiting family. While there, the patient was havingdifficulty controlling her headache and back pain; 911 was subsequently contacted. EMS tried multiple medications for pain control includinmcg of fentanyl, 0.5mg of ativan, 6mg of versed, and 25 mg of ketamine. Per EMS, the patient continued to scream out in discomfort and they elected to intubate for pain control. She underwent RSI at 00:22 with 100mg of rocuronium along with 250mg of ketamine. Her sedation was maintained with a ketamine infusion. She was subsequently transported here for management. EMS report she is hemodynamically stable in route. On exam, patient is intubated, paralyzed, and sedated. Hemodynamically stable, afebrile. RRR. Lungs clear to auscultation. Abdomen soft. No obvious injuries to the extremities. GCS 3T IRP: Headache Back pain 24 year old female with unclear past medical history, but reportedly brain tumors, spinal tumors s/p removal, and MS presents to the ED intubated due to pain control. This case is incredibly challenging as we have no records on her nor is she able to provide any history. Her exam is unrevealing, but she is paralyzed. It is unclear to me if this is her chronic painthat is uncontrolled versus something new. Will start with basic labs along with CT imaging of the head, thoracic, or lumbar spine to hopefully elucidate a little bit more about her underlying medical conditions. Additionally, we will try to obtain records from [facility]. We have transitioned her to propofol for sedation; barring any indication for continued intubation on advanced imaging, I anticipate extubation in the ED to facilitate better evaluation and management of the patient's current challenges. ED Course as of 10/04/24 141ThuOctober 03, 2024 0146 Outside records available. Patient s/p laminectomy due to multiple meningiomas on 02/26 at [facility]. Per an E visit family medicine note on June 17, she was on baclofen 5 mg 3 times aday, gabapentin 300 mg 3 times a day, Celebrex 200 mg daily, and acetaminophen as needed with adequate management of her pain. The notes reflect that she has lidocaine patches and oxycodone for breakthrough pain. Of note, the author reflects that the patient had discontinued many of these medications due to her pain improvement and was instructed to use the baclofen as needed for muscle spasms. The note also mentions history of migraines with aura occurring multiple times a week. Typically she uses sumatriptan for management. 0220 Patient successfully extubated at bedside with RT; patient breathing spontaneously and following very simple commands. Mother at bedside as well. Will continue to monitor closely. 0232 Recheck patient; patient continues to be more alert. No airway issues post extubation. Will continue to monitor. 0329 Recheck patient; shares she has been struggling with a migraine headache, noting this is more intense than her typical migraines. Additionally, she has had urinary urgency. Will treat with migraine cocktail and obtain urine specimens to evaluate for evidence of infection. 0440 Urine clean and without evidence of infection. Pain controlled with migraine cocktail + lidocaine patch for back pain. We've provided a refill of the patient's Sumatriptan and discussed outpatient management of symptoms. Discussed reasons to return and follow up. Final Diagnoses: as of 10/04/24 1412 Migraine Headache Pain Back Emilia Ga M.D., M.S. 10/04/24 1414 documented in this encounter Plan of Treatment Not on file documented as of this encounter Procedures Procedure Name Priority Date/Time Associated Diagnosis Comments HC URINALYSIS AUTO WO MICRO Routine 10/03/2024 4:36 AM CDT DIPSTICK, U STAT 10/03/2024 3:38 AM CDT MICROSCOPIC AUTOMATED STAT 10/03/2024 3:38 AM CDT BACTERIAL CULTURE, AEROBIC + SUSC, URINE STAT 10/03/2024 3:38 AM CDT PH, U STAT 10/03/2024 3:38 AM CDT OSMOLALITY, U STAT 10/03/2024 3:38 AM CDT URINALYSIS WITH MICROSCOPIC STAT 10/03/2024 3:38 AM CDT EXTUBATION STAT 10/03/2024 2:[address] LUMBAR SPINE WITHOUT IV CONTRAST RAD - Semiurgent (Fast; most ED patients; some inpatients) 10/03/2024 1:[address] THORACIC SPINE WITHOUT IV CONTRAST RAD - Semiurgent (Fast; most ED patients; some inpatients) 10/03/2024 1:[address] HEAD WITHOUT IV CONTRAST RAD - Semiurgent (Fast; most ED patients; some inpatients) 10/03/2024 1:35 AM CDT DX CHEST PORTABLE 1 VIEW RAD - Semiurgent (Fast; most ED patients; some inpatients) 10/03/2024 1:12 AM CDT ECG STAT 10/03/2024 1:08 AM CDT TROPONIN T, BASELINE, 5TH GEN, P STAT 10/03/2024 1:04 AM CDT CBC WITH DIFFERENTIAL, B STAT 10/03/2024 1:04 AM CDT C-REACTIVE PROTEIN (CRP), S/P STAT 10/03/2024 1:04 AM CDT HUMAN CHORIONIC GONADOTROPIN (HCG), GRZEGORZ, STAT 10/03/2024 1:04 AM CDT MAGNESIUM, S STAT 10/03/2024 1:04 AM CDT LIPASE, S/P STAT 10/03/2024 1:04 AM CDT CREATINE KINASE (CK), S STAT 10/03/2024 1:04 AM CDT BASIC METABOLIC PANEL, S/P STAT 10/03/2024 1:04 AM CDT LACTATE FOR SEPSIS WITH REFLEX, POCT STAT 10/03/2024 1:03 AM CDT VBG & LYTES CG8+, POCT, B STAT 10/03/2024 1:03 AM CDT PH BLOOD GAS STAT 10/03/2024 1:03 AM CDT CALCIUM, IONIZED, S/B STAT 10/03/2024 1:03 AM CDT documented in this encounter Results * Dipstick, POCT, Urine (10/03/2024 4:36 AM CDT) Glucose, POCT, U Negative Negative mg/dL 10/03/2024 4:37 AM CDT PCED Ketone, POCT, U Negative Negative mg/dL 10/03/2024 4:37 AM CDT PCED Specific Quinn, POCT, U 1.010 1.005 - 1.030 10/03/2024 4:37 AM CDT PCED Blood, POCT, U Negative Negative 10/03/2024 4:37 AM CDT PCED pH, POCT, Urine 7.0 5.0 - 8.0 10/03/2024 4:37 AM CDT PCED Protein, POCT, U Negative Negative mg/dL 10/03/2024 4:37 AM CDT PCED Nitrites, POCT, U Negative Negative 10/03/2024 4:37 AM CDT PCED Leukocytes, POCT, U Negative Negative 10/03/2024 4:37 AM CDT PCED Urine 10/03/2024 4:36 AM CDT 10/03/2024 4:38 AM CDT us Unknown Provider LAB POCT ORDERABLES - DEVICE Fi nal Result POC [facility] [address] [place] [address], [facility] PCED [employer] [address] [place] [address] * Dipstick, Urine (10/03/2024 3:38 AM CDT) Hemoglobin, QL, U Negative Negative 10/03/2024 10:49 AM CDT DTL Leukocyte Esterase, U Negative Negative 10/03/2024 10:49 AM CDT DTL Nitrite, U Negative Negative 10/03/2024 10:49 AM CDT DTL Ketone, U Negative Negative mg/dL 10/03/2024 10:49 AM CDT DTL Glucose, U Negative Negative mg/dL 10/03/2024 10:49 AM CDT DTL Urine 10/03/2024 3:38 AM CDT 10/03/2024 10:36 AM CDT Emilia Ga M.D., M.S. LAB URINE ORDERABLES Final Result Performing Organization Address City/[facility]/ZIP Co de Phone Number [facility] [address] [place] [address] * Osmolality, Urine (10/03/2024 3:38 AM CDT) Osmolality, U 210 150 - 1150 mOsm/kg 10/03/2024 11:04 AM CDT DTL Urine 10/03/2024 3:38 AM CDT 10/03/2024 10:36 AM CDT Emilia Ga M.D., M.S. LAB URINE ORDERABLES Final Result Performing Organization Address City/[facility] Co de Phone Number [facility] [address] [place] [address] * pH, Urine (10/03/2024 3:38 AM CDT) pH, U 6.7 4.5 - 8.0 10/03/2024 11: 04 AM CDT DT Urine 10/03/2024 3:38 AM CDT 10/03/2024 10:36 AM CDT us Emilia Ga M.D., M.S. LAB URINE ORDERABLES Final Result Performing Organization Address City/[facility] Co de Phone Number [facility] [address] [place] [address] * Microscopic Automated (10/03/2024 3:38 AM CDT) Microscopy Normal 10/03/2024 10:49 AM CDT DTL RBC None Seen <3 /hpf 10/03/2024 10:49 AM CDT DTL WBC None Seen /hpf 10/03/2024 10:49 AM CDT DTL Comment: ----REFERENCE VALUE---- <4 (Males) <11 (Females) Urine 10/03/2024 3:38 AM CDT 10/03/2024 10:36 AM CDT Emilia Ga M.D., M.S. LAB URINE ORDERABLES Final Result Performing Organization Address [facility] Co de Phone Number [facility] [address] [place] [address] * Bacterial Culture, Aerobic + Susceptibility, Urine (10/03/2024 3:38 AM CDT) Urine Culture No growth after 1 day of incubation. 10/04/2024 7:42 AM CDT DTL Urine (Urine, Straight Catheter) 10/03/2024 3:38 AM CDT 10/03/2024 11:23 AM CDT Comment:Specimen Source Site : Urine Emilia Ga M.D., M.S. LAB MICROBIOLOGY - G ENERAL ORDERABLES Final Result Performing Organization Address [facility] Co de Phone Number [facility] [address] [place] [address] * Urinalysis, with Microscopic: Urine, Straight Catheter (10/03/2024 3:38 AM CDT) Source Urine, Urine, Straight Catheter 10/03/2024 10:35 AM CDT DTL Color, U Yellow 10/03/2024 10:36 AM CDT DTL Clarity, U Clear 10/03/2024 10:36 AM CDT DTL Protein, U 5 <26 mg/dL 10/03/2024 11:13 AM CDT DTL Protein/Osmola lity 0.24 <0.42 ratio 10/03/2024 11:13 AM CDT DTL Predicted 24 HR Protein, U 182 <229 mg/24 h 10/03/2024 11:13 AM CDT DTL Predicted Range 45-736 mg/24 h 10/03/2024 11:13 AM CDT DTL Urine (Urine, Straight Catheter) 10/03/2024 3:38 AM CDT 10/03/2024 10:35 AM CDT us Emilia Ga M.D., M.S. LAB URINE ORDERABLES Final Result [facility] [address] [place] [address], [facility] DTL [facility] [address] [place] [address] * CT Lumbar Spine without IV Contrast (10/03/2024 1:35 AM CDT) Anatomical Region Laterality Modality Lumbar Spine, Neuroradiology RST LOS, Neuroradiology ARZ LOS, Neuroradiology FLA LOS N/A Computed Tomography, Compute d Tomography Impressions 10/03/2024 7:46 AM CDT Status post T4-T7 laminectomy, by report, for resection of meningioma. No thoracic or lumbar vertebral body fracture detected. Narrative 10/03/2024 7:46 AM CDT EXAM: CT THORACIC SPINE WITHOUT IV CONTRAST, CT LUMBAR SPINE WITHOUT IV CONTRAST COMPARISON: None FINDINGS: Reported surgical history includes laminectomy T4-T7 at outside institution for meningioma removal involving the spine 02/27/2024. No significant soft tissue fluid collection or inflammatory stranding overlying the laminectomy defect T4-T7. No acute fracture or traumatic alignment the thoracolumbar spine. Intervertebral disc heights are preserved. No high-grade neural foraminal or spinal canal stenosis. Minimal low-grade retrolisthesis L5 on S1. Other: ETT projects approximately 1.3 cm above the yoselyn. Flattening of the infrahepatic IVC as can be seen with hypovolemia. Bibasilar subsegmental atelectasis Procedure Note Skip Stark M.D. - 10/03/2024 EXAM: CT THORACIC SPINE WITHOUT IV CONTRAST, CT LUMBAR SPINE WITHOUT IVCONTRAST COMPARISON: None FINDINGS: Reported [facility] spine 02/27/2024. No significant soft tissue fluid collection or inflammatory strandingoverlying the laminectomy defect T4-T7. No acute fracture or traumatic alignment the thoracolumbar spine.Intervertebral disc heights are preserved. No high-grade neural foraminalor spinal canal stenosis. Minimal low-grade retrolisthesis L5 on S1. Other: ETT projects approximately 1.3 cm above the yoselyn. Flattening of the infrahepatic IVC as can be seen with hypovolemia.Bibasilar subsegmental atelectasis IMPRESSION: Status post T4-T7 laminectomy, by report, for resection of meningioma. Nothoracic or lumbar vertebral body fracture detected. Emilia Ga M.D., M.S. IMG CT PROCEDURES Fi nal Result * CT Thoracic Spine without IV Contrast (10/03/2024 1:35 AM CDT) Anatomical Region Laterality Modality Thoracic Spine, Neuroradiolo gy RST LOS, Neuroradiology ARZ LOS, Neuroradiology FLA LOS N/A Computed Tomography, Compute d Tomography Impressions 10/03/2024 7:46 AM CDT Status post T4-T7 laminectomy, by report, for resection of meningioma. No thoracic or lumbar vertebral body fracture detected. Narrative 10/03/2024 7:46 AM CDT EXAM: CT THORACIC SPINE WITHOUT IV CONTRAST, CT LUMBAR SPINE WITHOUT IV CONTRAST COMPARISON: None FINDINGS: Reported surgical history includes laminectomy T4-T7 at outside institution for meningioma removal involving the spine 02/27/2024. No significant soft tissue fluid collection or inflammatory stranding overlying the laminectomy defect T4-T7. No acute fracture or traumatic alignment the thoracolumbar spine. Intervertebral disc heights are preserved. No high-grade neural foraminal or spinal canal stenosis. Minimal low-grade retrolisthesis L5 on S1. Other: ETT projects approximately 1.3 cm above the yoselyn. Flattening of the infrahepatic IVC as can be seen with hypovolemia. Bibasilar subsegmental atelectasis Procedure Note Skip Stark M.D. - 10/03/2024 EXAM: CT THORACIC SPINE WITHOUT IV CONTRAST, CT LUMBAR SPINE WITHOUT IVCONTRAST COMPARISON: None FINDINGS: Reported surgical history includes laminectomy T4-T7 at [facility] for meningioma removal involving the spine 02/27/2024. No significant soft tissue fluid collection or inflammatory strandingoverlying the laminectomy defect T4-T7. No acute fracture or traumatic alignment the thoracolumbar spine.Intervertebral disc heights are preserved. No high-grade neural foraminalor spinal canal stenosis. Minimal low-grade retrolisthesis L5 on S1. Other: ETT projects approximately 1.3 cm above the yoselyn. Flattening of the infrahepatic IVC as can be seen with hypovolemia.Bibasilar subsegmental atelectasis IMPRESSION: Status post T4-T7 laminectomy, by report, for resection of meningioma. Nothoracic or lumbar vertebral body fracture detected. Emilia Ga M.D., M.S. IMG CT PROCEDURES Fi nal Result * CT Head without IV Contrast (10/03/2024 1:35 AM CDT) Anatomical Region Laterality Modality Head, Neuroradiology RST [facility] , Neuroradiology [facility], Neuroradiology [facility] N/A Computed Tomography, Compute d Tomography 10/03/2024 1:29 AM CDT Impressions 10/03/2024 7:43 AM CDT No acute intracranial findings. Left vertex meningioma. Narrative 10/03/2024 7:43 AM CDT EXAM: CT HEAD WITHOUT IV CONTRAST COMPARISON: None FINDINGS: Negative for acute intraparenchymal hemorrhage, extra-axial fluid collection, or substantial mass effect. Preserved saab-white matter differentiation. Small 1.2 cm partially calcified meningioma left vertex with adjacent minimal sulcal effacement. Consider follow-up with outside presently unavailable prior examinations. Mild paranasal sinus mucosal thickening. Right maxillary sinus small mucus retention cyst. Extracranial soft tissues and calvarium intact. Procedure Note Skip Stark M.D. - 10/03/2024 EXAM: CT HEAD WITHOUT IV CONTRAST COMPARISON: None FINDINGS: Negative for acute intraparenchymal hemorrhage, extra-axialfluid collection, or substantial mass effect. Preserved saab-white matterdifferentiation. Small 1.2 cm partially calcified meningioma left vertexwith adjacent minimal sulcal effacement. Consider follow-up with outside presently unavailable priorexaminations. Mild paranasal sinus mucosal thickening. Right maxillarysinus small mucus retention cyst. Extracranial soft tissues and calvariumintact. IMPRESSION: No acute intracranial findings. Left vertex meningioma. us Emilia Ga M.D., M.S. JOSE CT PROCEDURES Fi nal Result * DX Chest Portable 1 View (10/03/2024 1:12 AM CDT) Anatomical Region Laterality Modality Chest, Thoracic RST LOS, Tho racic ARZ LOS, Thoracic FLA LOS N/A Digital Radiography Impressions 10/03/2024 10:51 AM CDT ETT with tip in the midthoracic trachea. No focal consolidation, pleural effusion, or discernible pneumothorax. Low lung volumes accentuate heart size and bronchovascular markings. Trace bibasilar atelectasis. Narrative 10/03/2024 10:51 AM CDT EXAM: DX CHEST PORTABLE 1 VIEW Procedure Note Al Mcnamara M.D. - 10/03/2024 EXAM: DX CHEST PORTABLE 1 VIEW IMPRESSION: ETT with tip in the midthoracic trachea. No focal consolidation, pleuraleffusion, or discernible pneumothorax. Low lung volumes accentuate heartsize and bronchovascular markings. Trace bibasilar atelectasis. us Emilia Ga M.D., M.S. JOSE DIAGNOSTIC IMAGI NG PROCEDURES Final Result * ECG 12 Lead (10/03/2024 1:08 AM CDT) Ventricular Rate ECG/Min 71 BPM MUSE MD Interval 142 ms MUSE QRSD Interval 88 ms MUSE QT Interval 400 ms MUSE QTC Interval 434 ms MUSE P [place] 40 degrees MUSE R [place] 49 degrees MUSE T Wave [place] 32 degrees MUSE 10/03/2024 1:08 AM CDT 10/03/2024 1:14 AM CDT Impressions MUSE - 10/03/2024 1:14 AM CDT Normal sinus rhythm Nonspecific T wave abnormality No previous ECGs available Reviewed by REJI Floyd Narrative Procedure Note Lee Castillo M.B.BDebraS. - 10/03/2024 IMPRESSION: Normal sinus rhythm Nonspecific T wave abnormality No previous ECGs available Reviewed by REJI Floyd Emilia Ga M.D., M.S. ECG ORDERABLES Ira l Result Performing Organization Address City/[facility]/ZIP Co de Phone Number MUSE NA * hCG (Human Chorionic Gonadotropin), Quantitative, (10/03/2024 1:04 AM CDT) HCG, Quantitative, , P 1.0 <5 IU/L 10/03/2024 1:31 AM CDT STMA Blood (Blood, Venous) 10/03/2024 1:04 AM CDT 10/03/2024 1:12 AM CDT Emilia Ga M.D., M.S. LAB BLOOD ADD-ON Fin al Result Performing Organization Address City/[facility]/ZIP Co de Phone Number [facility] [address] [place] [address], [facility] STMA [facility] [address] [place] [address] * Magnesium (10/03/2024 1:04 AM CDT) Pathologist [facility] Magnesium, P 1.9 1.7 - 2.3 mg/dL 10/03/2024 1:55 AM CDT DTL Blood (Blood, Venous) 10/03/2024 1:04 AM CDT 10/03/2024 1:33 AM CDT Emilia Ga M.D., M.S. LAB BLOOD ADD-ON Fin al Result [facility] [address] [place] [address], [facility] [address] [place] [address] * Lipase (10/03/2024 1:04 AM CDT) Pathologist [facility] Lipase, S 17 13 - 60 U/L 10/03/2024 1: 56 AM CDT DT Blood (Blood, Venous) 10/03/2024 1:04 AM CDT 10/03/2024 1:33 AM CDT Emilia Ga M.D., M.S. LAB BLOOD ADD-ON Fin al Result Performing Organization Address City/[facility]/ZIP Co de Phone Number [facility] [address] [place] [address], [facility] [address] [place] [address] * CRP (C-Reactive Protein) (10/03/2024 1:04 AM CDT) [facility] C-Reactive Protein (CRP), S <3.0 <5.0 mg/L 10/03/2024 1:56 AM CDT DT Blood (Blood, Venous) 10/03/2024 1:04 AM CDT 10/03/2024 1:33 AM CDT Emilia Ga M.D., M.S. LAB BLOOD ADD-ON Fin al Result [facility] [address] [place] [address], [facility] [address] [place] [address] * CK (Creatine Kinase) (10/03/2024 1:04 AM CDT) [facility] Creatine Kinase (CK), S 53 26 - 192 U/L 10/03/2024 1:56 AM CDT DTL Blood (Blood, Venous) 10/03/2024 1:04 AM CDT 10/03/2024 1:33 AM CDT Emilia Ga M.D., M.S. LAB BLOOD ADD-ON Fin al Result [facility] [address] [place] [address], [facility] DTL [facility] [address] [place] [address] * (ABNORMAL) Basic Metabolic Panel (10/03/2024 1:04 AM CDT) Potassium, P 3.9 3.6 - 5.2 mmol/L 10/03/2024 1:55 AM CDT DTL Sodium, P 141 135 - 145 mmol/L 10/03/2024 1:55 AM CDT DTL Chloride, P 111(H) 98 - 107 mmol/L 10/03/2024 1:55 AM CDT DTL Bicarbonate, P 19(L) 22 - 29 mmol/L 10/03/2024 1:55 AM CDT DTL Anion Gap, P 11 7 - 15 10/03/2024 1:55 AM CDT DTL BUN (Blood Urea Nitrogen), P 8 6 - 21 mg/dL 10/03/2024 1:55 AM CDT DTL Creatinine 0.68 0.59 - 1.04 mg/dL 10/03/2024 1:55 AM CDT DTL Estimated GFR (eGFR) >90 >=60 mL/min/BSA 10/03/2024 1:55 AM CDT DTL Comment: Estimated GFR calculated using the 2020 CKD_EPI creatinine equation. Calcium, Total, P 8.2(L) 8.6 - 10.0 mg/dL 10/03/2024 1:55 AM CDT DTL Glucose, P 90 70 - 140 mg/dL 10/03/2024 1:55 AM CDT DTL Blood (Blood, Venous) 10/03/2024 1:04 AM CDT 10/03/2024 1:33 AM CDT us Emilia Ga M.D., M.S. LAB BLOOD ADD-ON Fin al Result [facility] [address] [place] [address], [facility] [address] [place] [address] * (ABNORMAL) CBC with Differential, Blood (10/03/2024 1:04 AM CDT) Pathologist [facility] Hemoglobin 12.5 11.6 - 15.0 g/dL 10/03/2024 1:14 AM CDT STMA Hematocrit 38.5 35.5 - 44.9 % 10/03/2024 1:14 AM CDT STMA Erythrocytes 4.71 3.92 - 5.13 x10(12)/L 10/03/2024 1:14 AM CDT STMA MCV 81.7 78.2 - 97.9 fL 10/03/2024 1:14 AM CDT STMA RBC Distrib Width 14.0 12.2 - 16.1 % 10/03/2024 1:14 AM CDT STMA Platelet Count 391(H) 157 - 371 x10(9)/L 10/03/2024 1:14 AM CDT STMA Leukocytes 8.3 3.4 - 9.6 x10(9)/L 10/03/2024 1:14 AM CDT STMA Neutrophils 6.33 1.56 - 6.45 x10(9)/L 10/03/2024 1:14 AM CDT DHPM Lymphocytes 1.53 0.95 - 3.07 x10(9)/L 10/03/2024 1:14 AM CDT STMA Monocytes 0.43 0.26 - 0.81 x10(9)/L 10/03/2024 1:14 AM CDT STMA Eosinophils <0.03 0.03 - 0.48 x10(9)/L 10/03/2024 1:14 AM CDT STMA Basophils <0.03 0.01 - 0.08 x10(9)/L 10/03/2024 1:14 AM CDT STMA Blood (Blood, Venous) 10/03/2024 1:04 AM CDT 10/03/2024 1:12 AM CDT Emilia Ga M.D., M.S. LAB BLOOD ADD-ON Fin al Result [facility] [address] [place] [address], [facility] [address] [place], [place] [id number] [place] [address] [address] [place] [address] * Troponin T, Baseline with 2 Hour/6 Hour Reflex Biomarker Panel (10/03/2024 1:04 AM CDT) Troponin T, Baseline, 5th gen <6 <=10 ng/L 10/03/2024 1:31 AM CDT STMA Blood (Blood, Venous) 10/03/2024 1:04 AM CDT 10/03/2024 1:12 AM CDT Emilia Ga M.D., M.S. LAB BLOOD TROPONIN F inal Result Performing Organization Address City/[facility]/ZIP Co de Phone Number [facility] [address] [place] [address], [facility] [address] [place] [address] * pH (10/03/2024 1:03 AM CDT) pH 7.41 7.35 - 7.45 pH 10/03/2024 1:10 AM CDT STMA Blood 10/03/2024 1:03 AM CDT 10/03/2024 1:08 AM CDT Emilia Ga M.D., M.S. LAB HISTORICAL ORDER S Final Result [facility] [address] [place] [address] * (ABNORMAL) Calcium, Ionized (10/03/2024 1:03 AM CDT) [facility] Calcium, Ionized, B 4.39(L) 4.65 - 5.30 mg/dL 10/03/2024 1:12 AM CDT STMA Blood (Blood, Venous) 10/03/2024 1:03 AM CDT 10/03/2024 1:08 AM CDT Emilia Ga M.D., M.S. LAB BLOOD NON ADD-ON Final Result [facility] [address] [place] [address] * Lactate for Sepsis with Reflex, POCT (10/03/2024 1:03 AM CDT) [facility] Lactate, POCT 0.66 0.50 - 2.20 mmol/L 10/03/2024 1:15 AM CDT PCLX Blood (Blood, Venous) 10/03/2024 1:03 AM CDT 10/03/2024 1:03 AM CDT Emilia Ga M.D., M.S. LAB POCT ORDERABLES - DEVICE Final Result POC [facility] [address] [place] [address], [facility] PCLX [employer] POC [address] [place] [address] * (ABNORMAL) Venous Blood Gas and Electrolytes CG8+, POCT (10/03/2024 1:03 AM CDT) [facility] Sample Site, POCT Venline 10/03/2024 1:15 AM CDT PCSM Comment: ----ADDITIONAL INFORMATION---- Performed at the Point of Care pH, Venous, POCT, B 7.39 7.32 - 7.43 10/03/2024 1:15 AM CDT PCSM Comment: ----ADDITIONAL INFORMATION---- Performed at the Point of Care pCO2, Venous, POCT, B 30(L) 41 - 51 mm Hg 10/03/2024 1:15 AM CDT PCSM Comment: ----ADDITIONAL INFORMATION---- Performed at the Point of Care pO2, Venous, POCT, B 31 Not Applicable mm Hg 10/03/2024 1:15 AM CDT PCSM Comment: ----ADDITIONAL INFORMATION---- Performed at the Point of Care Base Excess, Venous, POCT, B -7 Not Applicable mmol/L 10/03/2024 1:15 AM CDT PCSM Comment: ----ADDITIONAL INFORMATION---- Performed at the Point of Care HCO3, Venous, POCT, B 18 Not Applicable mmol/L 10/03/2024 1:15 AM CDT PCSM Comment: ----ADDITIONAL INFORMATION---- Performed at the Point of Care Sodium, POCT, B 144 135 - 145 mmol/L 10/03/2024 1:15 AM CDT PCSM Comment: ----ADDITIONAL INFORMATION---- Performed at the Point of Care Potassium, POCT, B 3.8 3.6 - 5.2 mmol/L 10/03/2024 1:15 AM CDT PCSM Comment: ----ADDITIONAL INFORMATION---- Performed at the Point of Care Calcium, Ionized, POCT, B 4.60(L) 4.65 - 5.30 mg/dL 10/03/2024 1:15 AM CDT PCSM Comment: ----ADDITIONAL INFORMATION---- Performed at the Point of Care Glucose, POCT, B 87 70 - 140 mg/dL 10/03/2024 1:15 AM CDT PCSM Comment: ----ADDITIONAL INFORMATION---- Performed at the Point of Care Hematocrit, POCT, B 37.0 35.5 - 44.9 % 10/03/2024 1:15 AM CDT PCSM Comment: ----ADDITIONAL INFORMATION---- Performed at the Point of Care Blood (Blood, Venous) 10/03/2024 1:03 AM CDT 10/03/2024 1:03 AM CDT Emilia Ga M.D., M.S. LAB POCT ORDERABLES - DEVICE Final Result POC [facility] [address] [place] [address], [facility] Laboratories [place] POC [address] [place] [address] documented in this encounter Visit Diagnoses Diagnosis Migraine Headache- Primary Pain Back documented in this encounter Administered Medications Inactive Administered Medications - up to 3 most recent administrations Medication Order MAR Action Action Date Dose Rate Site ketorolac injection 15 mg (ToradoL) 15 mg, intravenous, Once, On Thu10/03/24 at 0313, For 1 dose, Adult IV push rate: Over 15 seconds. Peds IV push rate: Over 1 minute. Doses > 15 mg IV/IM are discouraged due to lack of additional analgesic benefit. Given 10/03/2024 3:14 AM CDT 15 mg lidocaine 5 % 1 patch (Lidoderm) 1 patch, transdermal, Administer over 12 Hours, Once, On Thu10/03/24 at 0330, For 1 dose, Apply to intact skin for a maximum of 12 hours in a 24-hour period. Medication Applied 10/03/2024 3:53 AM CDT 1 patch Lower Back NaCl 0.9 % bolus 1,000 mL 1,000 mL, intravenous, at 1,000 mL/hr, Administer over 1 Hours, Once, On Thu10/03/24 at 0332, For 1 dose New Bag 10/03/2024 3:32 AM CDT 1,000 mL 1000 mL/hr ondansetron (PF) (Zofran) 4 mg/2 mL injection - ADS Override Pull Starting on Thu10/03/24 at 0218, For 1 dose, Created by cabinet override ondansetron (PF) injection 4 mg (Zofran) 4 mg, intravenous, Once, On Thu10/03/24 at 0220, For 1 dose Given 10/03/2024 2:20 AM CDT 4 mg prochlorperazine injection 10 mg (Compazine) 10 mg, intravenous, Once, On Thu10/03/24 at 0332, For 1 dose Given 10/03/2024 3:53 AM CDT 10 mg propofol 10 mg/mL infusion (Diprivan) 50 mcg/kg/min 100 kg Dosing weight (30 mL/hr), intravenous, Continuous, Starting on Thu10/03/24 at 0135, Type: Do Not Titrate New Bag 10/03/2024 1:00 AM CDT 50 mcg/kg/min 30 mL/hr documented in this encounter Active and Recently Administered Medications Times are shown in CDT. Scheduled Medication Order 10/01/2024 10/02/2024 10/03/2024 ketorolac injection 15 mg (ToradoL) (COMPLETED) 15 mg, intravenous, Once, On Thu10/03/24 at 0313, For 1 dose, Adult IV push rate: Over 15 seconds. Peds IV push rate: Over 1 minute. Doses > 15 mg IV/IM are discouraged due to lack of additional analgesic benefit. 0314 (Given - Provid er: Jessenia Davis R.N.) lidocaine 5 % 1 patch (Lidoderm) 1 patch, transdermal, Administer over 12 Hours, Once, On Thu10/03/24 at 0330, For 1 dose, Apply to intact skin for a maximum of 12 hours in a 24-hour period. 0353 (Medication Promise lied - Provider: Elías Marina R.N.)0639 (Due: Medication Removed - Provider: Discharge Provider, Automatic - Comment: Time automatically adjusted from order being discontinued) NaCl 0.9 % bolus 1,000 mL (COMPLETED) 1,000 mL, intravenous, at 1,000 mL/hr, Administer over 1 Hours, Once, On Thu10/03/24 at 0332, For 1 dose 0332 (New Bag - Prov ider: Jessenia Davis RDebraN.)0613 (Stopped - Provider: Jessenia Davis R.N.) ondansetron (PF) injection 4 mg (Zofran) (COMPLETED) 4 mg, intravenous, Once, On Thu10/03/24 at 0220, For 1 dose 0220 (Given - Provid er: Martina AbbasiN.) prochlorperazine injection 10 mg (Compazine) (COMPLETED) 10 mg, intravenous, Once, On Thu10/03/24 at 0332, For 1 dose 0353 (Given - Provid er: Elías Marina R.N.) Continuous Medication Order 10/01/2024 10/02/2024 10/03/2024 propofol 10 mg/mL infusion (Diprivan) 50 mcg/kg/min 100 kg Dosing weight (30 mL/hr), intravenous, Continuous, Starting on Thu10/03/24 at 0135, Type: Do Not Titrate 0100 (New Bag - Prov ider: Jessenia Davis R.N.)0204 (Stopped - Provider: Jessenia Davis R.N.) documented in this encounter Care Teams Diesel Technician Mechanic Relationship Specialty Start Date End Date Elsewhere, Pcp PCP - General Internal Medicine 10/03/24 documented as of this encounter
--- OUTSIDE RECORDS SUMMARY | 2024-11-01 00:20 | XMS_ITS | Clinical Summary ---
Author Organization [facility] Address [address] [place] [address] Care Team Providers Care Tone Artist Apprentice Name Role Phone Elsewhere, Pcp Primary Care Provider Unavailabl e Source Comments Patient records contain information from all sites at [facility]. For routine questions regarding patient records, call [phone] during business hours, M-F 8:00 AM - 5:00 PM Central Time. Record requests for emergency care only can be directed to [phone] at any time.[facility] Allergies No known active allergies Medications SUMAtriptan [...] CDT - 10/03/2024 6:39 AM CDT Emergency [facility] Emergency Department [address] [place] [id number] Emilia Ga M.D., M.S. Migraine Headache (Primary [...] mg/dL 10/03/2024 4:37 AM CDT PCED Specific [place], POCT, U 1.010 1.005 - 1.030 10/03/2024 [...] DEVICE Fi nal Result Performing Organization Address City/[facility] Co de Phone Number POC [facility] OUTPATIENT LABS [address] [place] [address], [facility] PCED [facility] POC [address] [place] [address] * Dipstick, Urine (10/03/2024 3:38 AM CDT) [...] URINE ORDERABLES Final Result Performing Organization Address [place]/[facility] Co de Phone Number [facility] [address] [place] [address], [facility] DTL [facility] [address] [place] [address] * Microscopic Automated (10/03/2024 3:38 AM CDT) Microscopy Normal 10/03/2024 10:49 AM CDT DTL RBC None Seen <3 /hpf 10/03/2024 10:49 AM CDT DTL WBC None Seen /hpf 10/03/2024 10:49 AM CDT DT Comment: ----REFERENCE VALUE---- <4 (Males) <11 (Females) Urine 10/03/2024 3:38 AM CDT 10/03/2024 10:36 AM CDT Emilia Ga M.D., M.S. LAB URINE ORDERABLES Final Result Performing Organization Address [place]/[facility] Co de Phone Number [facility] [address] [place] [address] * Bacterial Culture, Aerobic + Susceptibility, Urine (10/03/2024 3:38 AM CDT) Urine Culture No growth after 1 day of incubation. 10/04/2024 7:42 AM CDT DT Urine (Urine, Straight Catheter) 10/03/2024 3:38 AM CDT 10/03/2024 11:23 AM CDT Comment:Specimen Source Site : Urine Emilia Ga M.D., M.S. LAB MICROBIOLOGY - G ENERAL ORDERABLES Final Result Performing Organization Address [place]/[facility] Co de Phone Number [facility] [address] [place] [address] * pH, Urine (10/03/2024 3:38 AM CDT) pH, U 6.7 4.5 - 8.0 10/03/2024 11: 04 AM CDT DTL Urine 10/03/2024 3:38 AM CDT 10/03/2024 10:36 AM CDT us Emilia Ga M.D., M.S. LAB URINE ORDERABLES Final Result Performing Organization Address City/[facility] Co de Phone Number [facility] [address] [place] [address] * Osmolality, Urine (10/03/2024 3:38 AM CDT) Osmolality, U 210 150 - 1150 mOsm/kg 10/03/2024 11:04 AM CDT DTL Urine 10/03/2024 3:38 AM CDT 10/03/2024 10:36 AM CDT Emilia Ga M.D., M.S. LAB URINE ORDERABLES Final Result Performing Organization Address City/[facility]/[place] [address] * Urinalysis, with Microscopic: Urine, Straight Catheter [...] URINE ORDERABLES Final Result Performing Organization Address City/[facility]/ZIP Co de Phone Number [address] [address], [facility] DTL [facility] [address] [place] [address] * CT Lumbar Spine without IV Contrast [...] Reported [facility] [...] Reported surgical history [facility] the [facility] [...] CDT) Ventricular Rate ECG/Min 71 BPM MUSE OR Interval 142 ms MUSE QRSD Interval 88 ms MUSE QT Interval 400 ms MUSE QTC Interval 434 ms MUSE P Corea 40 degrees MUSE R Corea 49 degrees MUSE T Wave Corea 32 degrees MUSE 10/03/2024 1:08 AM CDT [...] Reflex Biomarker Panel (10/03/2024 1:04 AM CDT) [facility] Troponin T, Baseline, 5th gen <6 <=10 ng/L 10/03/2024 1:31 AM CDT STMA Blood (Blood, Venous) 10/03/2024 1:04 AM CDT 10/03/2024 1:12 AM CDT Emilia Ga M.D., M.S. LAB BLOOD TROPONIN F inal Result [facility] [address] [place] [address], [facility] [address] [place] [address] * (ABNORMAL) CBC with Differential, Blood (10/03/2024 1:04 AM CDT) [facility] Hemoglobin 12.5 11.6 - 15.0 [...] ADD-ON Fin al Result Performing Organization Address City/[facility]/ZIP Co de Phone Number [facility] [address] [facility] [address] [place] [address] [facility] [address] [place] [address] * CRP (C-Reactive Protein) (10/03/2024 1:04 AM CDT) [facility] C-Reactive Protein (CRP), S <3.0 <5.0 mg/L 10/03/2024 1:56 AM CDT DTL Blood (Blood, Venous) 10/03/2024 1:04 AM CDT 10/03/2024 1:33 AM CDT Emilia Ga M.D., M.S. LAB BLOOD ADD-ON Fin al Result [facility] [address] [place] [address], [facility] DTL [facility] [address] [place] [address] * hCG (Human Chorionic Gonadotropin), Quantitative, (10/03/2024 1:04 AM CDT) HCG, Quantitative, , P 1.0 <5 IU/L 10/03/2024 1:31 AM CDT STMA Blood (Blood, Venous) 10/03/2024 1:04 AM CDT 10/03/2024 1:12 AM CDT Emilia Ga M.D., M.S. LAB BLOOD ADD-ON Fin al Result Performing Organization Address City/[facility] Co de Phone Number [facility] [address] [facility] [address] [place] [address] * Magnesium (10/03/2024 1:04 AM CDT) [facility] Magnesium, P 1.9 1.7 - 2.3 mg/dL 10/03/2024 1:55 AM CDT DTL Blood (Blood, Venous) 10/03/2024 1:04 AM CDT 10/03/2024 1:33 AM CDT Emilia Ga M.D., M.S. LAB BLOOD ADD-ON Fin al Result Performing Organization Address [place]/[facility] Co de Phone Number [facility] [address] [place] [address], [facility] DTL [facility] [address] [place] [address] * Lipase (10/03/2024 1:04 AM CDT) Pathologist [facility] Lipase, S 17 13 - 60 U/L 10/03/2024 1: 56 AM CDT DTL Blood (Blood, Venous) 10/03/2024 1:04 AM CDT 10/03/2024 1:33 AM CDT Emilia Ga M.D., M.S. LAB BLOOD ADD-ON Fin al Result Performing Organization Address City/[facility]/ZIP Co de Phone Number [facility] [address] [place] [address], [facility] [address] [place] [address] * CK (Creatine Kinase) (10/03/2024 1:04 AM CDT) Creatine Kinase (CK), S 53 26 - 192 U/L 10/03/2024 1:56 AM CDT DTL Blood (Blood, Venous) 10/03/2024 1:04 AM CDT 10/03/2024 1:33 AM CDT us Emilia Ga M.D., M.S. LAB BLOOD ADD-ON Fin al Result [facility] [address] [place] [address], [facility] [address] [place] [address] * (ABNORMAL) Basic Metabolic Panel (10/03/2024 1:04 [...] ADD-ON Fin al Result Performing Organization Address [place]/[facility]/ZIP Co de Phone Number [facility] [address] [place] [address], [facility] DTL [facility] [address] [place] [address] * Lactate for Sepsis with Reflex, POCT (10/03/2024 1:03 AM CDT) Pathologist [facility] Lactate, POCT 0.66 0.50 - 2.20 mmol/L 10/03/2024 1:15 AM CDT PCLX Blood (Blood, Venous) 10/03/2024 1:03 AM CDT 10/03/2024 1:03 AM CDT Emilia Ga M.D., M.S. LAB POCT ORDERABLES - DEVICE Final Result Performing Organization Address [facility] de Phone Number POC [facility] [address] [place] [address], [facility] PCLX [facility] POC [address] [place] [address] * (ABNORMAL) Venous Blood Gas and Electrolytes [...] - DEVICE Final Result Performing Organization Address [place]/[facility]/ZIP Co de Phone Number [facility]OC [facility] IN[facility]IENT [facility] [address] [place] [address], [facility] PCSM [facility] POC [address] [place] [address] * pH (10/03/2024 1:03 AM CDT) pH 7.41 7.35 - 7.45 pH 10/03/2024 1:10 AM CDT STMA Blood 10/03/2024 1:03 AM CDT 10/03/2024 1:08 AM CDT Emilia Ga M.D., M.S. LAB HISTORICAL ORDER S Final Result Performing Organization Address [place]/[facility] Co de Phone Number [facility] [address] [place] [address] * (ABNORMAL) Calcium, Ionized (10/03/2024 1:03 AM CDT) Calcium, Ionized, B 4.39(L) 4.65 - 5.30 mg/dL 10/03/2024 1:12 AM CDT STMA Blood (Blood, Venous) 10/03/2024 1:03 AM CDT 10/03/2024 1:08 AM CDT Emilia Ga M.D., M.S. LAB BLOOD NON ADD-ON Final Result Performing Organization Address City/[facility]/ZIP Co de Phone Number [facility] [address] [place] [address], [facility] [address] [place] [address] from Last 3 Months Insurance [facility] Care Teams Tone Artist Apprentice Relationship Specialty Start Date End Date Elsewhere, Pcp PCP - General Internal Medicine 10/03/24
--- OUTSIDE RECORDS SUMMARY | 2024-11-01 00:22 | XMS_ITS | Encounter Summary ---
Author Organization [facility] Address [address] [address] Phone Care Team Providers Care Canteen Operator Name Role Phone Josselyn Bates APRN, MANAGER STRATEGIC DEVELOPMENT Primary Care Pr ovider Reason for Visit * Auth/Cert Specialty Diagnoses / Procedures Referred By Fran ivey Referred To Contact Diagnoses Multiple sclerosis Multiple sclerosis Procedures CPT/PROCEDURE NOT IN LIST SPINAL PUNCTURE,LUMBAR,DIAGNOSTIC Lumbar puncture Servando Ma MD [address] [place] [address] Phone: tel: fax: Referral ID Status Reason Start Date Expiration Date Visits Re quested Visits Authorized [id number] 1 1 Encounter Details Date Type Department Care Team (Late st Contact Info) Description 08/31/2024 Hospital Encounter 32 [facility] INTERVENTIONAL ADMIT/PHASE [address] [place] [address] Servando Ma MD [address] [place] [address] Social History Tobacco Use Types Packs/Day Years Used Date Smoking Tobacco: Former Cigarettes S tarted: 2017 Passive Smoke Exposure: Current Smokeless Tobacco: Never Comments:vapes Alcohol Use Standard Drinks/Week Comments Yes 0 (1 standard drink = 0.6 oz pur e alcohol) occasionally C Utilities Answer Date Recorded In the past 12 months has [employer] electric, gas, oil, or water company threatened [...] time in the past 12 m [facility], were you homeless or living in a snf (including now)? No 03/05/2024 EH IP Custom [...] Patient can eat and drink as normal. PANTRY GOODS WORKER medications reviewed and confirmed with patient; Collet Driller needed for procedure Should the patient have any further questions, concerns, or need to reschedule, they have been instructed to return call to IR scheduling at [phone]. Patient verbalized understanding. Standing orders for IR pre-procedural scheduling are attached above. Bianca Tran RN 08/23/2024 3:41 PM documented in this encounter Plan of Treatment Not on file documented as of this encounter Visit Diagnoses Not on filedocumented in this encounter Care Teams Canteen Operator Relationship Specialty Start Date End Date Josselyn Bates, COMPETITIVE ATHLETE, MANAGER STRATEGIC DEVELOPMENT [address] [place] [address] PCP - General Nurse Practitioner 07/23/17 documented as of this encounter
--- OUTSIDE RECORDS SUMMARY | 2024-11-01 00:22 | XMS_ITS | Clinical Summary ---
Author Organization [facility] Address [address] [address] Phone Care Team Providers Care Airport Duty Manager Name Role Phone Josselyn Bates APRN, QUALITY CONTROL PROJECTIONIST Primary Care Pr ovider Allergies No known [...] Type Department Care Team Description 09/01/[address] [place] [address] INTERVENTIONAL RADIOLOGY [address] [place] [address] Bianca Tran RN 08/31/2024 Hospital Encounter [address] [place] [address] INTERVENTIONAL ADMIT/PHASE [address] [place] [address] Servando Ma MD 08/30/[address] [place] [address] INTERVENTIONAL RADIOLOGY [address] [place] [address] Xiomara Stiles RN 08/30/[address] [place] [address] NE[address]Y [address] [place] [address] Lay Caputo RN 08/24/[address] [place] [address] NE[address]Y [address] [place] [address] Lay Caputo RN 08/24/[address] [place] [address] NE[address]OLOGY [address] [place] [address] Lay Caputo RN 08/24/[address] [place] [address] RAD DIAGNOSTIC [address] [place] [address] Doris Hendrickson RN,BSN,CWOCN 08/24/[address] [place] [address] NE[address]OLOGY [address] [place] [address] Lay Caputo RN 08/23/2024 Orders Only [address] [place] [address] NEUROLOGY [address] [place] [address] Елена Watkins, GWENDOLYN, QUALITY CONTROL PROJECTIONIST Multiple sclerosis (HCC) (Primary Dx) 08/23/2024 Orders Only 32 [facility] NEUROLOGY [address] [place] [address] Елена Watkins, GWENDOLYN, QUALITY CONTROL PROJECTIONIST Multiple sclerosis (HCC) (Primary Dx) from Last [...] Lumbar Puncture; Surgeon: Lalita Panda RRA; Location: [facility] INTERVENTIONAL RADIOLOGY OTHER SURGICAL HISTORY 02/26/2024 Back/N/A Procedure: T6/7 skin marking; Surgeon: Cecil Magallon MD; Location: [facility] INTERVENTIONAL RADIOLOGY THORACIC LAMINECTOMY 02/27/2024 Spine Thoracic/N/A Procedure: T6 - T7 decompressive LAMINECTOMY with tumor excision; Surgeon: Dennis Curtis MD; Location: [facility] OR THORACIC LAMINECTOMY 02/28/2024 Back/Bilateral Procedure: Thoracic 5/6/7 decompression for tumor resection; Surgeon: Dennis Curtis MD; Location: [facility] OR THORACIC LAMINECTOMY 03/06/2024 Back/Bilateral Procedure: T4-T7 wound exploration for evacuation of hematoma, wound culture; Surgeon: Wilfrid Kelley MD; Location: [facility] OR Social History Tobacco Use Types Packs/Day [...] any time in the past 12 m [facility], were you homeless or living in a residential (including now)? No 03/05/2024 IP Custom IPV [...] Comments Blood Pressure 108/71 04/12/2024 10:58 AM INSURANCE LICENSING SUPERVISOR Pulse 85 04/12/2024 10:58 AM INSURANCE LICENSING SUPERVISOR Temperature 36.3 C (97.4 F) 03/10/2024 8:38 [...] GONORRHOEAE MOLECULAR DETECTION Routine 06/18/2017 2:40 PM INSURANCE LICENSING SUPERVISOR Potential exposure to STD from Last 3 Months or Most Recently Relevant to Health Maintenance Results * CHLAMYDIA TRACHOMATIS/NEISSERIA GONORRHOEAE MOLECULAR DETECTION (06/18/2017 2:40 PM INSURANCE LICENSING SUPERVISOR) Chlamydia trachomatis Negative Negative 06/21/2017 1:36 PM INSURANCE LICENSING SUPERVISOR [facility] Neisseria gonorrhoeae Negative Negative 06/21/2017 1:36 PM INSURANCE LICENSING SUPERVISOR [facility] Urine specimen (specimen) VOIDED URINE SPECIMEN / Unknown Non-blood collection / Unknown 06/18/2017 2:40 PM INSURANCE LICENSING SUPERVISOR 06/18/2017 2:51 PM INSURANCE LICENSING SUPERVISOR Narrative [facility] - 06/21/2017 1:36 PM INSURANCE LICENSING SUPERVISOR Test detects target DNA by real-time polymerase chain reaction (PCR) technology for amplification and detection on the [employer] 4800 System. us Josselyn Bates VP PUBLIC RELATIONS, QUALITY CONTROL PROJECTIONIST EC MICROBIOLOGY - GENERAL ORDERABLES Final Result [facility] [address] [place] [address], [facility] from Last 3 Months or Most Recently Relevant to Health Maintenance Insurance [facility] Address: [facility] [id number] [place] [address] Advance Directives For more information, please contact: [phone] * Full Code (Latest Code Status on File) Date Activated Date Inactivated Comments 03/05/2024 11:20 AM 03/10/2024 7:48 PM * Full Code Date Activated Date Inactivated Comments 02/23/2024 5:49 PM 03/03/2024 9:00 PM Care Teams Airport Duty Manager Relationship Specialty Start Date End Date Josselyn Bates, VP PUBLIC RELATIONS, QUALITY CONTROL PROJECTIONIST [address] [place] [address] PCP - General Nurse Practitioner 07/23/17
== END 2024-10-29 11:25 | disposition home or self-care (01) ==
LOC: AMB 10-31 10:56
PROVIDERS: Visit Provider Emergency Medicine
DX: R55 Syncope and collapse (principal); R11.10 Vomiting, unspecified; T50.902A Poisoning by unspecified drugs, medicaments and biological substances, intentional self-harm, initial encounter; Y92.003 Bedroom of unspecified non-institutional (private) residence as the place of occurrence of the external cause
CPT/HCPCS: A0425; A0429

== ENCOUNTER 2024-10-29 12:00 | Emergency (ER) | payer OTHER, SELFPAY ==
--- OUTSIDE RECORDS SUMMARY | 2024-10-03 00:53 | XMS_ITS | Encounter Summary ---
Author Organization [facility] Address [address] [place] [address] Care Team Providers Care Air Defense Specialist Name Role Phone Elsewhere, Pcp Primary Care Provider Unavailabl e Reason for Visit * Reason Comments Respiratory Distress Pain Encounter Details Date Type Department Care Team (Late st Contact Info) Description 10/03/2024 12:53 AM CDT - 10/03/2024 6:39 AM CDT Emergency [facility] Emergency Department [address] [place] [id number] Emilia Ga M.D., M.S. [address] [place] [phone] Migraine Headache (Primary Dx); Pain Back Discharge [...] was at risk for self extubation, ED community health consultant okayed extubation, patient extubated successfully to 4LPM capnography cannula. Patient able to vocalize and is continuing to awake post sedation. Will continue to monitor while in ED. SpO2 stable at 99% on 4LPM. Suction and bag mask at bedside if needed. * Kristie Pineda M.S.W., Yvette.W. - 10/03/2024 1:57 AM CDT SUBJECTIVE Patient presents as a adult extremis page from the [facility] area for medical workup. Patientis not assessed due to receiving urgent medical evaluation. Social work met the patient's mother, aDniela, when the patient arrived as she rode [...] a adult extremis. The patient presented via [facility]. ASSESSMENT / PLAN ASSESSMENT The patient appears to be sedated and intubated. A full assessment is not completed at this time due to the nature of the urgent medical evaluation. The patient's mother, Daniela, is coping appropriately to the situation. She shares she and the patient are currently staying in a camper and are on the road, moving to [place]. She reports not needing social work support [...] remove the spinal tumors in 2023 in [place], [place]. Mother states that patient has been in a lot of pain and since then and that she has had trouble getting out of bed with pain as well as nausea and vomiting. They are from [facility] and are stopping in this area to visit with family before moving to [place]. Mom states that tonight she was having [...] emergency department as a medical resuscitation fromthe [facility]. On arrival to the scene, EMS [...] department as a medical resuscitation from the [facility]. She has a history of MS [...] patient and her mother are currently visiting [place] from [facility] to visit the patient's grandmother. Her [...] also try to obtain medical records from [place]. Please see below for further ED course. [...] of the spine in February [address] [facility]. As noted in a family medicine note [...] U Negative Ketone, POCT, U Negative Specific Boles, POCT, U 1.010 Blood, POCT, U Negative [...] along with the tumors as above in [place], [place] in February 2024. At that time, the spinal tumors were reportedly removed, but the plan was to watch thebrain tumors. Since the diagnosis, Bhakti has struggled with pain. Her home pain regimen includes baclofen 5 mg 3 times a day, gabapentin 300 mg 3 times a day, and citalopram 20 mg daily. Patient and mother are currently in [place] visiting family. While there, the patient was [...] we will try to obtain records from [place]. We have transitioned her to propofol for sedation; barring any indication for continued intubation on advanced imaging, I anticipate extubation in the ED to facilitate better evaluation and management of the patient's current challenges. ED Course as of 10/04/24 141ThuOctober 03, 2024 0146 Outside records available. Patient s/p laminectomy due to multiple meningiomas on 02/26 at . Per an E visit family medicine note [...] mg/dL 10/03/2024 4:37 AM CDT PCED Specific Boles, POCT, U 1.010 1.005 - 1.030 10/03/2024 [...] - DEVICE Fi nal Result POC [facility] [address] [place] [address], [facility] PCED [facility] POC [address] [place] [address] * Dipstick, Urine (10/03/2024 3:38 AM CDT) [...] URINE ORDERABLES Final Result Performing Organization Address City/[facility]/ZIP Co de Phone Number [facility] [address] [place] [address] * Osmolality, Urine (10/03/2024 3:38 AM CDT) Osmolality, U 210 150 - 1150 mOsm/kg 10/03/2024 11:04 AM CDT DTL Urine 10/03/2024 3:38 AM CDT 10/03/2024 10:36 AM CDT Emilia Ga M.D., M.S. LAB URINE ORDERABLES Final Result Performing Organization Address City/[facility] Co de Phone Number [facility] [address] [place] [address] * pH, Urine (10/03/2024 3:38 AM CDT) pH, U 6.7 4.5 - 8.0 10/03/2024 11: 04 AM CDT DT Urine 10/03/2024 3:38 AM CDT 10/03/2024 10:36 AM CDT us Emilia Ga M.D., M.S. LAB URINE ORDERABLES Final Result Performing Organization Address City/[facility] Co de Phone Number [facility] [address] [place] [address] * Microscopic Automated (10/03/2024 3:38 AM CDT) Microscopy Normal 10/03/2024 10:49 AM CDT DTL RBC None Seen <3 /hpf 10/03/2024 10:49 AM CDT DTL WBC None Seen /hpf 10/03/2024 10:49 AM CDT DTL Comment: ----REFERENCE VALUE---- <4 (Males) <11 (Females) Urine 10/03/2024 3:38 AM CDT 10/03/2024 10:36 AM CDT Emilia Ga M.D., M.S. LAB URINE ORDERABLES Final Result Performing Organization Address [facility] Co de Phone Number [facility] [address] [place] [address] * Bacterial Culture, Aerobic + Susceptibility, Urine (10/03/2024 3:38 AM CDT) Urine Culture No growth after 1 day of incubation. 10/04/2024 7:42 AM CDT DTL Urine (Urine, Straight Catheter) 10/03/2024 3:38 AM CDT 10/03/2024 11:23 AM CDT Comment:Specimen Source Site : Urine Emilia Ga M.D., M.S. LAB MICROBIOLOGY - G ENERAL ORDERABLES Final Result Performing Organization Address [facility] Co de Phone Number [facility] [address] [place] [address] * Urinalysis, with Microscopic: Urine, Straight Catheter [...] Result [facility] [address] [place] [address], [facility] DTL [facility] [address] [place] [address] * CT Lumbar Spine without IV Contrast [...] Reported [facility] the spine [facility]/27/2024. [...] Reported surgical history includes laminectomy T4[facility] for meningioma removal involving the spine [...] Anatomical Region Laterality Modality Head, Neuroradiology [facility] , [facility]adiology [facility], [facility] N/A Computed Tomography, Compute d Tomography 10/03/2024 [...] CDT) Ventricular Rate ECG/Min 71 BPM MUSE TN Interval 142 ms MUSE QRSD Interval 88 ms MUSE QT Interval 400 ms MUSE QTC Interval 434 ms MUSE P [place] 40 degrees MUSE R [place] 49 degrees MUSE T Wave [place] 32 degrees MUSE 10/03/2024 1:08 AM CDT [...] ORDERABLES Ira l Result Performing Organization Address City/[facility]/ZIP Co de Phone Number MUSE NA * hCG (Human Chorionic Gonadotropin), Quantitative, (10/03/2024 1:04 AM CDT) HCG, Quantitative, , P 1.0 <5 IU/L 10/03/2024 1:31 AM CDT STMA Blood (Blood, Venous) 10/03/2024 1:04 AM CDT 10/03/2024 1:12 AM CDT Emilia Ga M.D., M.S. LAB BLOOD ADD-ON Fin al Result Performing Organization Address City/[facility]/ZIP Co de Phone Number [facility] [address] [place] [address], [facility] STMA [facility] [address] [place] [address] * Magnesium (10/03/2024 1:04 AM CDT) Pathologist [facility] Magnesium, P 1.9 1.7 - 2.3 mg/dL 10/03/2024 1:55 AM CDT DTL Blood (Blood, Venous) 10/03/2024 1:04 AM CDT 10/03/2024 1:33 AM CDT Emilia Ga M.D., M.S. LAB BLOOD ADD-ON Fin al Result [facility] [address] [place] [address], [facility] [address] [place] [address] * Lipase (10/03/2024 1:04 AM CDT) Pathologist [facility] Lipase, S 17 13 - 60 U/L 10/03/2024 1: 56 AM CDT DT Blood (Blood, Venous) 10/03/2024 1:04 AM CDT 10/03/2024 1:33 AM CDT Emilia Ga M.D., M.S. LAB BLOOD ADD-ON Fin al Result Performing Organization Address City/[facility]/ZIP Co de Phone Number [facility] [address] [place] [address], [facility] [address] [place] [address] * CRP (C-Reactive Protein) (10/03/2024 1:04 AM CDT) [facility] C-Reactive Protein (CRP), S <3.0 <5.0 mg/L 10/03/2024 1:56 AM CDT DT Blood (Blood, Venous) 10/03/2024 1:04 AM CDT 10/03/2024 1:33 AM CDT Emilia Ga M.D., M.S. LAB BLOOD ADD-ON Fin al Result [facility] [address] [place] [address], [facility] [address] [place] [address] * CK (Creatine Kinase) (10/03/2024 1:04 AM CDT) [facility] Creatine Kinase (CK), S 53 26 - 192 U/L 10/03/2024 1:56 AM CDT DTL Blood (Blood, Venous) 10/03/2024 1:04 AM CDT 10/03/2024 1:33 AM CDT Emilia Ga M.D., M.S. LAB BLOOD ADD-ON Fin al Result [facility] [address] [place] [address], [facility] DTL [facility] [address] [place] [address] * (ABNORMAL) Basic Metabolic Panel (10/03/2024 1:04 [...] al Result [facility] [address] [place] [address], [facility] [address] [place] [address] * (ABNORMAL) CBC with Differential, Blood (10/03/2024 [...] al Result [facility] [address] [place] [address], [facility] [address] [place], [place] [address] [place] [address] [address] [place] [address] * Troponin T, Baseline with 2 Hour/6 Hour Reflex Biomarker Panel (10/03/2024 1:04 AM CDT) Troponin T, Baseline, 5th gen <6 <=10 ng/L 10/03/2024 1:31 AM CDT STMA Blood (Blood, Venous) 10/03/2024 1:04 AM CDT 10/03/2024 1:12 AM CDT Emilia Ga M.D., M.S. LAB BLOOD TROPONIN F inal Result Performing Organization Address City/[facility]/ZIP Co de Phone Number [facility] [address] [place] [address], [facility] [address] [place] [address] * pH (10/03/2024 1:03 AM CDT) pH 7.41 7.35 - 7.45 pH 10/03/2024 1:10 AM CDT STMA Blood 10/03/2024 1:03 AM CDT 10/03/2024 1:08 AM CDT Emilia Ga M.D., M.S. LAB HISTORICAL ORDER S Final Result [facility] [address] [place] [address] * (ABNORMAL) Calcium, Ionized (10/03/2024 1:03 AM CDT) [facility] Calcium, Ionized, B 4.39(L) 4.65 - 5.30 mg/dL 10/03/2024 1:12 AM CDT STMA Blood (Blood, Venous) 10/03/2024 1:03 AM CDT 10/03/2024 1:08 AM CDT Emilia Ga M.D., M.S. LAB BLOOD NON ADD-ON Final Result [facility] [address] [place] [address] * Lactate for Sepsis with Reflex, POCT (10/03/2024 1:03 AM CDT) [facility] Lactate, POCT 0.66 0.50 - 2.20 mmol/L 10/03/2024 1:15 AM CDT PCLX Blood (Blood, Venous) 10/03/2024 1:03 AM CDT 10/03/2024 1:03 AM CDT Emilia Ga M.D., M.S. LAB POCT ORDERABLES - DEVICE Final Result POC [facility] [address] [place] [address], [facility] PCLX [facility] POC [address] [place] [address] * (ABNORMAL) Venous Blood Gas and Electrolytes CG8+, POCT (10/03/2024 1:03 AM CDT) [facility] Sample Site, POCT Venline 10/03/2024 1:15 AM [...] ORDERABLES - DEVICE Final Result POC [facility] [address] [place] [address], [facility] POC [address] [place] [address] documented in this encounter Visit Diagnoses Diagnosis [...] R.N.) documented in this encounter Care Teams Air Defense Specialist Relationship Specialty Start Date End Date Elsewhere, Pcp PCP - General Internal Medicine 10/03/24 documented as of this encounter
[2024-10-29] VITALS (25 sets, daily range): BP systolic 125; BP diastolic 78–80; PULSE 64–153; RESP 16; TEMP 36.7; O2SAT 94–99; BMI 36.1
--- OUTSIDE RECORDS SUMMARY | 2024-10-29 12:04 | XMS_ITS | Clinical Summary ---
Author Organization [facility] Address [address] [address] Phone Care Team Providers Care Spring Former Hand Name Role Phone Josselyn Bates APRN, TAILOR'S AIDE Primary Care Pr ovider Allergies No known [...] Type Department Care Team Description 09/01/[address] [place] [address] INTERVENTIONAL RADIOLOGY [address] [place] [address] 11213 Bianca Tran RN 08/31/2024 Hospital Encounter [address] [place] [address] INTERVENTIONAL ADMIT/PHASE [address] [place] [address]56 Servando Ma MD 08/30/[address] [place] [address] INTERVENTIONAL RADIOLOGY [address] [place] [address] Xiomara Stiles RN 08/30/[address] [place] [address] NEUROLOGY [address] [place] [address] 31955 Lay Caputo RN 08/24/[address] [place] [address] NEUROLOGY [address] [place] [address] 37692 Lay Caputo RN 08/24/[address] [place] [address] NEUROLOGY [address] [place] [address]2596 Lay Caputo RN 08/24/[address] [place] [address] RAD DIAGNOSTIC [address] [place] [address] Doris Hendrickson RN,BSN,CWOCN 08/24/[address] [place] [address] NEUROLOGY [address] [place] [address] 34468 Lay Caputo RN 08/23/2024 Orders Only [address] [place] [address] NEUROLOGY [address] [place] [address] Елена Watkins, GWENDOLYN, TAILOR'S AIDE Multiple sclerosis (HCC) (Primary Dx) 08/23/2024 Orders Only 32 [facility] NEUROLOGY [address] [place] [address] Елена Watkins, GWENDOLYN, TAILOR'S AIDE Multiple sclerosis (HCC) (Primary Dx) from Last [...] Lumbar Puncture; Surgeon: Lalita Panda RRA; Location: [facility] INTERVENTIONAL RADIOLOGY OTHER SURGICAL HISTORY 02/26/2024 Back/N/A Procedure: T6/7 skin marking; Surgeon: Cecil Magallon MD; Location: [facility] INTERVENTIONAL RADIOLOGY THORACIC LAMINECTOMY 02/27/2024 Spine Thoracic/N/A Procedure: T6 - T7 decompressive LAMINECTOMY with tumor excision; Surgeon: Dennis Curtis MD; Location: [facility] OR THORACIC LAMINECTOMY 02/28/2024 Back/Bilateral Procedure: Thoracic 5/6/7 decompression for tumor resection; Surgeon: Dennis Curtis MD; Location: [facility] OR THORACIC LAMINECTOMY 03/06/2024 Back/Bilateral Procedure: T4-T7 wound exploration for evacuation of hematoma, wound culture; Surgeon: Wilfrid Kelley MD; Location: [facility] OR Social History Tobacco Use Types Packs/Day [...] any time in the past 12 m [facility], were you homeless or living in a nursing home (including now)? No 03/05/2024 IP Custom IPV [...] Comments Blood Pressure 108/71 04/12/2024 10:58 AM [facility] Pulse 85 04/12/2024 10:58 AM [facility] Temperature 36.3 C (97.4 F) 03/10/2024 8:38 [...] GONORRHOEAE MOLECULAR DETECTION Routine 06/18/2017 2:40 PM [facility] Potential exposure to STD from Last 3 Months or Most Recently Relevant to Health Maintenance Results * CHLAMYDIA TRACHOMATIS/NEISSERIA GONORRHOEAE MOLECULAR DETECTION (06/18/2017 2:40 PM [facility]) Chlamydia trachomatis Negative Negative 06/21/2017 1:36 PM [facility] Neisseria gonorrhoeae Negative Negative 06/21/2017 1:36 PM [facility]OT [facility] Urine specimen (specimen) VOIDED URINE SPECIMEN / Unknown Non-blood collection / Unknown 06/18/2017 2:40 PM [facility] 06/18/2017 2:51 PM [facility] Narrative [facility] - 06/21/2017 1:36 PM [facility] P[facility]OT Test detects target DNA by real-time polymerase chain reaction (PCR) technology for amplification and detection on the [employer] 4800 System. us Josselyn Bates UX ENGINEER, TAILOR'S AIDE EC MICROBIOLOGY - GENERAL ORDERABLES Final Result [facility] [address] [place] [address], [facility] from Last 3 Months or Most Recently Relevant to Health Maintenance Insurance [facility] Advance Directives For more information, please contact: [phone] * Full Code (Latest Code Status on File) Date Activated Date Inactivated Comments 03/05/2024 11:20 AM 03/10/2024 7:48 PM * Full Code Date Activated Date Inactivated Comments 02/23/2024 5:49 PM 03/03/2024 9:00 PM Care Teams Spring Former Hand Relationship Specialty Start Date End Date Josselyn Bates, UX ENGINEER, TAILOR'S AIDE [address] [place] [address] PCP - General Nurse Practitioner 07/23/17
--- OUTSIDE RECORDS SUMMARY | 2024-10-29 12:04 | XMS_ITS | Clinical Summary ---
Author Organization [facility] Address [address] [place] [address] Care Team Providers Care Activity Manager Name Role Phone Elsewhere, Pcp Primary Care Provider Unavailabl e Source Comments Patient records contain information from all sites at [facility]. For routine questions regarding patient records, call [phone] during business hours, M-F 8:00 AM - 5:00 PM Central Time. Record requests for emergency care only can be directed to [phone] at any time.[facility] Allergies No known active allergies Medications SUMAtriptan [...] CDT - 10/03/2024 6:39 AM CDT Emergency [facility] Department [address] [place] [phone] Emilia Ga M.D., M.S. Migraine Headache (Primary [...] POCT, Urine (10/03/2024 4:36 AM CDT) Pathologist [facility] Glucose, POCT, U Negative Negative mg/dL 10/03/2024 4:37 AM CDT PCED Ketone, POCT, U Negative Negative mg/dL 10/03/2024 4:37 AM CDT PCED Specific [place], POCT, U 1.010 1.005 - 1.030 10/03/2024 [...] DEVICE Fi nal Result Performing Organization Address City/[facility] Co de Phone Number POC RST [facility] [address] [place] [address], [facility] PCED [facility]OC [address] [place] [address] * Dipstick, Urine (10/03/2024 3:38 AM CDT) [...] URINE ORDERABLES Final Result Performing Organization Address [facility] Co de Phone Number [facility] [place] [address] [place] [address], [facility] DTL [facility] [address] [place] [address] * Microscopic Automated (10/03/2024 3:38 AM CDT) Microscopy Normal 10/03/2024 10:49 AM CDT DTL RBC None Seen <3 /hpf 10/03/2024 10:49 AM CDT DTL WBC None Seen /hpf 10/03/2024 10:49 AM CDT DT Comment: ----REFERENCE VALUE---- <4 (Males) <11 (Females) Urine 10/03/2024 3:38 AM CDT 10/03/2024 10:36 AM CDT Emilia Ga M.D., M.S. LAB URINE ORDERABLES Final Result Performing Organization Address [facility] Co de Phone Number [facility] [address] [place] [address] * Bacterial Culture, Aerobic + Susceptibility, Urine (10/03/2024 3:38 AM CDT) Urine Culture No growth after 1 day of incubation. 10/04/2024 7:42 AM CDT DT Urine (Urine, Straight Catheter) 10/03/2024 3:38 AM CDT 10/03/2024 11:23 AM CDT Comment:Specimen Source Site : Urine Emilia Ga M.D., M.S. LAB MICROBIOLOGY - G ENERAL ORDERABLES Final Result Performing Organization Address [facility] Co de Phone Number [facility] [address] [place] [address] * pH, Urine (10/03/2024 3:38 AM CDT) pH, U 6.7 4.5 - 8.0 10/03/2024 11: 04 AM CDT DTL Urine 10/03/2024 3:38 AM CDT 10/03/2024 10:36 AM CDT us Emilia Ga M.D., M.S. LAB URINE ORDERABLES Final Result Performing Organization Address City/[facility] Co de Phone Number [facility] [address] [place] [address] * Osmolality, Urine (10/03/2024 3:38 AM CDT) Osmolality, U 210 150 - 1150 mOsm/kg 10/03/2024 11:04 AM CDT DTL Urine 10/03/2024 3:38 AM CDT 10/03/2024 10:36 AM CDT Emilia Ga M.D., M.S. LAB URINE ORDERABLES Final Result Performing Organization Address City/[facility]/[place] [address] * Urinalysis, with Microscopic: Urine, Straight Catheter [...] AM CDT 10/03/2024 10:35 AM CDT us Emiila Ga M.D., M.S. LAB URINE ORDERABLES Final Result Performing Organization Address City/[facility]/ZIP Co de Phone Number [address] [address], [facility] DTL [facility] [address] [place] [address] * CT Lumbar Spine without IV Contrast [...] Reported surgical history [facility] spine [...] with hypovolemia. Bibasilar subsegmental atelectasis Procedure Note Skpi Stark M.D. - 10/03/2024 EXAM: CT THORACIC SPINE WITHOUT IV CONTRAST, CT LUMBAR SPINE WITHOUT IVCONTRAST COMPARISON: None FINDINGS: Reported surgical history includes [facility] involving the spine [...] CDT) Ventricular Rate ECG/Min 71 BPM MUSE CA Interval 142 ms MUSE QRSD Interval 88 ms MUSE QT Interval 400 ms MUSE QTC Interval 434 ms MUSE P [place] 40 degrees MUSE R [place] 49 degrees MUSE T Wave [place] 32 degrees MUSE 10/03/2024 1:08 AM CDT 10/03/2024 1:14 AM CDT Impressions MUSE - 10/03/2024 1:14 AM CDT Normal sinus rhythm Nonspecific T wave abnormality No previous ECGs available Reviewed by REJI Floyd Narrative Procedure Note Lee Castillo M.B.BDebraSDebra - 10/03/2024 IMPRESSION: Normal sinus rhythm Nonspecific T wave abnormality No previous ECGs available Reviewed by REJI Floyd us Emilia Ga M.D., M.S. ECG ORDERABLES Ira l Result MUSE NA * Troponin T, Baseline with 2 Hour/6 Hour Reflex Biomarker Panel (10/03/2024 1:04 AM CDT) [facility] Troponin T, Baseline, 5th gen <6 <=10 ng/L 10/03/2024 1:31 AM CDT STMA Blood (Blood, Venous) 10/03/2024 1:04 AM CDT 10/03/2024 1:12 AM CDT Emilia Ga M.D., M.S. LAB BLOOD TROPONIN F inal Result [facility] [address] [place] [address], [facility] [address] [place] [address] * (ABNORMAL) CBC with Differential, Blood (10/03/2024 1:04 AM CDT) [facility] Hemoglobin 12.5 11.6 - 15.0 g/dL 10/03/2024 [...] ADD-ON Fin al Result Performing Organization Address City/[facility]/ZIP Co de Phone Number [facility] [address] [facility] 200 [place] [address] [facility] 200 [place] [address] * CRP (C-Reactive Protein) (10/03/2024 1:04 AM CDT) [facility] C-Reactive Protein (CRP), S <3.0 <5.0 mg/L 10/03/2024 1:56 AM CDT DTL Blood (Blood, Venous) 10/03/2024 1:04 AM CDT 10/03/2024 1:33 AM CDT Emilia Ga M.D., M.S. LAB BLOOD ADD-ON Fin al Result [facility] [address] [place] [address], [facility] DTL [facility] [address] [place] [address] * hCG (Human Chorionic Gonadotropin), Quantitative, (10/03/2024 1:04 AM CDT) HCG, Quantitative, , P 1.0 <5 IU/L 10/03/2024 1:31 AM CDT STMA Blood (Blood, Venous) 10/03/2024 1:04 AM CDT 10/03/2024 1:12 AM CDT Emilia Ga M.D., M.S. LAB BLOOD ADD-ON Fin al Result Performing Organization Address City/[facility] Co de Phone Number [facility] [address] [facility] [address] [place] [address] * Magnesium (10/03/2024 1:04 AM CDT) [facility] Magnesium, P 1.9 1.7 - 2.3 mg/dL 10/03/2024 1:55 AM CDT DTL Blood (Blood, Venous) 10/03/2024 1:04 AM CDT 10/03/2024 1:33 AM CDT Emilia Ga M.D., M.S. LAB BLOOD ADD-ON Fin al Result Performing Organization Address [facility] Co de Phone Number [facility] [address] [place] [address], [facility] DTL [facility] [address] [place] [address] * Lipase (10/03/2024 1:04 AM CDT) Pathologist [facility] Lipase, S 17 13 - 60 U/L 10/03/2024 1: 56 AM CDT DTL Blood (Blood, Venous) 10/03/2024 1:04 AM CDT 10/03/2024 1:33 AM CDT Emilia Ga M.D., M.S. LAB BLOOD ADD-ON Fin al Result Performing Organization Address City/[facility]/ZIP Co de Phone Number [facility] [address] [place] [address], [facility] [address] [place] [address] * CK (Creatine Kinase) (10/03/2024 1:04 AM CDT) Creatine Kinase (CK), S 53 26 - 192 U/L 10/03/2024 1:56 AM CDT DTL Blood (Blood, Venous) 10/03/2024 1:04 AM CDT 10/03/2024 1:33 AM CDT us Emilia Ga M.D., M.S. LAB BLOOD ADD-ON Fin al Result [facility] [address] [place] [address], [facility] [address] [place] [address] * (ABNORMAL) Basic Metabolic Panel (10/03/2024 1:04 [...] ADD-ON Fin al Result Performing Organization Address [facility]/ZIP Co de Phone Number [facility] [address] [place] [address], [facility] DTL [facility] [address] [place] [address] * Lactate for Sepsis with Reflex, POCT (10/03/2024 1:03 AM CDT) Pathologist [facility] Lactate, POCT 0.66 0.50 - 2.20 mmol/L 10/03/2024 1:15 AM CDT PCLX Blood (Blood, Venous) 10/03/2024 1:03 AM CDT 10/03/2024 1:03 AM CDT Emilia Ga M.D., M.S. LAB POCT ORDERABLES - DEVICE Final Result Performing Organization Address [facility] de Phone Number POC [facility] [address] [place] [address], [facility] PCLX [facility] POC [address] [place] [address] * (ABNORMAL) Venous Blood Gas and Electrolytes [...] - DEVICE Final Result Performing Organization Address [facility]/ZIP Co de Phone Number POC [facility] [address] [place] [address], [facility] PCSM [facility] POC [address] [place] [address] * pH (10/03/2024 1:03 AM CDT) pH 7.41 7.35 - 7.45 pH 10/03/2024 1:10 AM CDT STMA Blood 10/03/2024 1:03 AM CDT 10/03/2024 1:08 AM CDT Emilia Ga M.D., M.S. LAB HISTORICAL ORDER S Final Result Performing Organization Address [facility] Co de Phone Number [facility] [address] [place] [address] * (ABNORMAL) Calcium, Ionized (10/03/2024 1:03 AM CDT) Calcium, Ionized, B 4.39(L) 4.65 - 5.30 mg/dL 10/03/2024 1:12 AM CDT STMA Blood (Blood, Venous) 10/03/2024 1:03 AM CDT 10/03/2024 1:08 AM CDT Emilia Ga M.D., M.S. LAB BLOOD NON ADD-ON Final Result Performing Organization Address City/[facility]/ZIP Co de Phone Number [facility] [address] [place] [address], [facility] [address] [place] [address] from Last 3 Months Insurance [place] Care Teams Activity Manager Relationship Specialty Start Date End Date Elsewhere, Pcp PCP - General Internal Medicine 10/03/24
--- OUTSIDE RECORDS SUMMARY | 2024-10-29 12:04 | XMS_ITS | Encounter Summary ---
Author Organization [facility] Address [address] [address] Phone Care Team Providers Care Loading Machine Operator Helper Name Role Phone Josselyn Bates APRN, TIRE ADJUSTER Primary Care Pr ovider Reason for Visit * Auth/Cert Specialty Diagnoses / Procedures Referred By Fran ivey Referred To Contact Diagnoses Multiple sclerosis Multiple sclerosis Procedures CPT/PROCEDURE NOT IN LIST SPINAL PUNCTURE,LUMBAR,DIAGNOSTIC Lumbar puncture Servando Ma MD [address] [place] [address] Phone: tel: fax: Referral ID Status Reason Start Date Expiration Date Visits Re quested Visits Authorized [id number] 1 1 Encounter Details Date Type Department Care Team (Late st Contact Info) Description 08/31/2024 Hospital Encounter 32 [facility] INTERVENTIONAL ADMIT/PHASE [address] [place] [id number] Servando Ma MD [address] [place] [address] Social History Tobacco Use Types Packs/Day Years Used Date Smoking Tobacco: Former Cigarettes S tarted: 2017 Passive Smoke Exposure: Current Smokeless Tobacco: Never Comments:vapes Alcohol Use Standard Drinks/Week Comments Yes 0 (1 standard drink = 0.6 oz pur e alcohol) occasionally C Utilities Answer Date Recorded In the past 12 months has [employer], gas, oil, or water company threatened [...] any time in the past 12 m [facility], were you homeless or living in a alf (including now)? No 03/05/2024 EH IP Custom [...] Patient can eat and drink as normal. CHIEF CLIENT OFFICER medications reviewed and confirmed with patient; Storekeeper Steward needed for procedure Should the patient have any further questions, concerns, or need to reschedule, they have been instructed to return call to IR scheduling at [phone]. Patient verbalized understanding. Standing orders for IR pre-procedural scheduling are attached above. Bianca Tran RN 08/23/2024 3:41 PM documented in this encounter Plan of Treatment Not on file documented as of this encounter Visit Diagnoses Not on filedocumented in this encounter Care Teams Loading Machine Operator Helper Relationship Specialty Start Date End Date Josselyn Bates, HEALTH AND SAFETY TECH, TIRE ADJUSTER [address] [place] [address] PCP - General Nurse Practitioner 07/23/17 documented as of this encounter
--- OUTSIDE RECORDS SUMMARY | 2024-10-29 12:04 | XMS_ITS | Clinical Summary ---
Author Organization [facility] Address [address] [place] [address] Care Team Providers Care [employer] Administrator Name Role Phone Pcp, No Primary Care Provider Unavailabl e Allergies Active Allergy Reactions Criticality Noted Date Comments Adhesive Rash 03/21/2024 Medical tape, can use paper tape. Medications gabapentin 300 mg capsule Take 300 mg by mouth three times daily. Active citalopram 20 mg tablet Take 20 mg by mouth once daily. Active tiZANidine 2 mg tabletIndicatio ns:Meningioma (HC) Take 1 Tablet (2 mg) by mouth every 8 hours if needed for Muscle Spasm. 90 Tablet 3 Active baclofen 5 mg as half tablet Take 5 mg by mouth three times daily. 10/29/19 25 Discontinu ed(*IP Discontinu ed) Active Problems Problem Noted Date Diagnosed Date Meningioma 10/25/2024 Multiple sclerosis 10/25/2024 Baclofen withdrawal. 10/25/2024 Obesity (BMI 30-39.9) 03/31/2024 History of migraine with aura 10/29/2023 Encounters Date Type Department Care Team Description 10/27/2024 Telephone [facility] [address] [place] [address] Elin Charles NP Headache (Complex pt. Of Dr. Foster. She is asking for (Dilaudid) for relief. Not a good precedent; I will let Ciara know to round on her tomorrow. Elin ) 10/25/2024 5:27 PM CDT - 10/28/2024 5:06 PM CDT Hospital Encounter [facility] [address] [place] [address] s, U Hospitalist [facility] Daya Cerna DO Mills, Elliot George, MD Meningioma (HC) (Primary Dx) Discharge Disposition: Home Self Care from Last 3 Months Social History Tobacco Use Types Packs/Day Years Used Date Smoking Tobacco: Never Assessed Tobacco Cessation:Counseling Given: Not Answered Alcohol Use Standard Drinks/Week Comments Never 0 (1 standard drink = 0.6 oz pur e alcohol) Social Connections Answer Date Recorded Do you often feel lonely or isolated from those around you? 0 10/25/2024 Financial Resource Strain Answer Date R ecorded Difficulty of Paying Living Expenses 3 10/25/2024 Difficulty of Paying Living Expenses Not on file 10/25/2024 Food Insecurity Answer Date Recorded Do you worry your food will run out before you are able to buy more? 1 10/25/2024 Transportation Needs Answer Date Record ed Does lack of transportation keep you from medica l appointments? 1 10/25/2024 Does lack of transportation keep you from work, meetings or getting things that you need? 1 10/25/2024 Housing Stability Answer Date Recorded What is your housing situation today? 1 10/25/2024 Interpersonal Safety Answer Date Record ed Are you being hit, kicked, p ushed or yelled at (see row info)? No 10/25/2024 Interpersonal Safety Abuse 12 - 18 Not on file 10/25/2024 Interpersonal Safety Ambulatory Vulnerability No t on file 10/25/2024 Utilities Answer Date Recorded Do you have trouble paying f or utilities (for example, heat, electricity, water, phone)? 1 10/25/2024 Comments No Sex and Gender Information Value Date Recorded Sex Assigned at Not on file Legal Sex Female 10:37 AM CDT Gender Identity Not on file Sexual Orientation Not on file Obstetrics History Last Filed Vital Signs Vital Sign Reading Time Taken Comments Blood Pressure 103/51 10/28/2024 7:24 AM CDT Pulse 51 10/28/2024 7:24 AM CDT Temperature 36.6 C (97.8 F) 10/28/2024 7:24 AM CDT Respiratory Rate 18 10/28/2024 7:24 AM CDT Oxygen Saturation 98% 10/28/2024 7:24 AM CDT Inhaled Oxygen Concentration - - Weight - - Height - - Body Mass Index - - Plan of Treatment Upcoming Encounters Date Type Department Care Team (Late st Contact Info) Description 11/01/2024 11:35 AM CDT Office Visit [facility] [address] [place] [address] Massiel Thomas PA [address] [place] [address] Health Maintenance Due Date Last Done Comments Tdap 2012 Depression screening for age 12+ 2013 HIV for age 15-65 2016 HPV series for age 9-26 (1 - 3-dose series) 2016 BMI (ht and wt on same day) for age 18+ 2019 Hepatitis C screening for ag e 18-79 2019 Hepatitis B series for 19+ ( 1 of 3 - 19+ 3-dose series) 2020 Tetanus booster 2021 Pap test for age 21-65 2022 COVID-19 vaccine series ( - 2023- season) 2024 Influenza Vaccine (Season Ended) 2025 Pneumococcal series for age 6-49 Aged Out No longer eligible based on patient's age to complete this topic Procedures Procedure Name Priority Date/Time Associated Diagnosis Comments WHITE BLOOD COUNT Early AM 10/27/2024 8:5 2 AM CDT HEMOGLOBIN Early AM 10/27/2024 8:52 AM CDT PLATELET COUNT Early AM 10/27/2024 8:52 AM CDT MAGNESIUM Early AM 10/27/2024 8:52 AM CDT POTASSIUM Early AM 10/27/2024 8:52 AM CDT CREATININE Early AM 10/27/2024 8:52 AM CDT SODIUM Early AM 10/27/2024 8:52 AM CDT MR SPINE CERVICAL WWO Routine 10/27/2024 2:07 AM CDT MR SPINE THORACIC WWO Routine 10/27/2024 2:07 AM CDT MR HEAD BRAIN W Routine 10/27/2024 2:06 AM CDT SCAN CORRESP-EKG RESULTS 10/26/2024 11:35 AM CDT SCAN CORRESP-LABORATORY RESULTS 10/26/2024 11:35 AM CDT SCAN CORRESP-IMAGING 10/26/2024 11:35 AM CDT SCAN CORRESP-DIAGNOSTICS 10/26/2024 11:35 AM CDT PLATELET COUNT Early AM 10/26/2024 9:21 AM CDT HEMOGLOBIN Early AM 10/26/2024 9:21 AM CDT WHITE BLOOD COUNT Early AM 10/26/2024 9:2 1 AM CDT CREATININE Early AM 10/26/2024 9:21 AM CDT POTASSIUM Early AM 10/26/2024 9:21 AM CDT SODIUM Early AM 10/26/2024 9:21 AM CDT MR HEAD BRAIN WO Routine 10/26/2024 1:04 AM CDT COMP METABOLIC PANEL Today 10/25/2024 10:23 PM CDT CBC W PLT NO DIFF Today 10/25/2024 10: 23 PM CDT from Last 3 Months Results * PLATELET COUNT (10/27/2024 8:52 AM CDT) Only the most recent of2 resultswithin the time period is included. PLATELET COUNT 374 140 - 440 thou/cu mm 10/27/2024 9:30 AM CDT [facility] MPV 10.1 6.5 - 11.0 fL 10/27/2024 9:30 AM CDT [facility] Blood BLOOD SPECIMEN / Unknown Venipuncture / Unknown 10/27/2024 8:52 AM CDT 10/27/2024 9:25 AM CDT Jesus Jasso MD HEMATOLOGY Final Res ult Performing Organization Address City/[facility] Co de Phone Number [facility] SENDOUT INTERNAL ZIP [phone] [place] [phone] * WHITE BLOOD COUNT (10/27/2024 8:52 AM CDT) Only the most recent of2 resultswithin the time period is included. WHITE BLOOD COUNT 8.8 4.5 - 11.0 thou/cu mm 10/27/2024 9:30 AM CDT [facility] NRBC 0.0 % 10/27/2024 9:30 AM CDT [facility] ABS NRBC 0.0 thou /cu mm 10/27/2024 9:30 AM CDT [facility] Blood BLOOD SPECIMEN / Unknown Venipuncture / Unknown 10/27/2024 8:52 AM CDT 10/27/2024 9:25 AM CDT Jesus Jasso MD HEMATOLOGY Final Res ult Performing Organization Address City/[facility]/ZIP Co de Phone Number [facility] SEND[employer] INTER[address] ZIP [phone] [place] [phone] * HEMOGLOBIN (10/27/2024 8:52 AM CDT) Only the most recent of2 resultswithin the time period is included. HEMOGLOBIN 12.6 12.0 - 16.0 g/dL 10/27/2024 9:30 AM CDT [facility] MCV 83 80 - 100 fL 10/27/2024 9:30 AM CDT [facility] Blood BLOOD SPECIMEN / Unknown Venipuncture / Unknown 10/27/2024 8:52 AM CDT 10/27/2024 9:25 AM CDT Jesus Jasso MD HEMATOLOGY Final Res ult Performing Organization Address [facility] de Phone Number [facility] S[address] [place] [address] [phone] [place] [address] * SODIUM (10/27/2024 8:52 AM CDT) Only the most recent of2 resultswithin the time period is included. SODIUM 140 136 - 145 mmol/L 10/27/2024 9:47 AM CDT [facility] Blood BLOOD SPECIMEN / Unknown Venipuncture / Unknown 10/27/2024 8:52 AM CDT 10/27/2024 9:25 AM CDT Jesus Jasso MD CHEMISTRY Final Res ult Performing Organization Address [facility] Phone Number [facility] SEND[employer] INTERNAL [address]IP [phone] [place] [phone] * POTASSIUM (10/27/2024 8:52 AM CDT) Only the most recent of2 resultswithin the time period is included. POTASSIUM 3.5 3.5 - 5.1 mmol/L 10/27/2024 9:47 AM CDT [facility] Blood BLOOD SPECIMEN / Unknown Venipuncture / Unknown 10/27/2024 8:52 AM CDT 10/27/2024 9:25 AM CDT Jesus Jasso MD CHEMISTRY Final Res ult Performing Organization Address [facility]/ZIP Co de Phone Number [facility] SEND[employer] INTER[address]IP [phone] [place] [phone] * CREATININE (10/27/2024 8:52 AM CDT) Only the most recent of2 resultswithin the time period is included. eGFR >90 >90 mL/min/1.7 3m2 10/27/2024 9:47 AM CDT [facility] Comment:As of 2021, eG FR is calculated by the CKD-EPI creatinine equation without race adjustment. eGFR can be influenced by muscle mass, exercise, and diet. The reported eGFR is an estimation only and is only applicable if the renal function is stable. CREATININE 0.77 0.50 - 0.90 mg/dL 10/27/2024 9:47 AM CDT [facility] Blood BLOOD SPECIMEN / Unknown Venipuncture / Unknown 10/27/2024 8:52 AM CDT 10/27/2024 9:25 AM CDT us Jesus Jasso MD CHEMISTRY Final Res ult [facility] SENDOUT INTERNAL ZIP [phone] [place] [id number] * MAGNESIUM (10/27/2024 8:52 AM CDT) MAGNESIUM 2.0 1.6 - 2.6 mg/dL 10/27/2024 9:47 AM CDT [facility] Blood BLOOD SPECIMEN / Unknown Venipuncture / Unknown 10/27/2024 8:52 AM CDT 10/27/2024 9:25 AM CDT us Jesus Jasso MD CHEMISTRY Final Res ult [facility] S[address] [phone] [place] [phone] * MR SPINE CERVICAL WWO (10/27/2024 2:07 AM CDT) Anatomical Region Laterality Modality Spine, CERVICAL SPINE Magnetic R esonance 10/27/2024 2:07 AM CDT Impressions 10/27/2024 3:21 AM CDT CERVICAL SPINE MRI: 1. No abnormal cord signal or abnormal cord enhancement. 2. No central canal or foraminal stenosis. THORACIC SPINE MRI: 1. Postsurgical changes of T4-T7 laminectomies. There is mild linear enhancement along the anterior margin of the surgical bed which is favored to be postoperative in nature. No obvious mass lesion is identified. Narrative 10/27/2024 3:21 AM CDT EXAM: MR SPINE THORACIC WWO, MR SPINE CERVICAL WWO LOCATION: [facility] DATE: 10/27/2024 INDICATION: History of Meningioma surgery at T6-T7 February of last year - describes spasms of pain in back. COMPARISON: None. CONTRAST: Clariscan 20 ml TECHNIQUE: 1) MRI Cervical Spine without and with IV contrast. 2) MRI Thoracic Spine without and with IV contrast. FINDINGS: CERVICAL SPINE: Normal vertebral body heights, alignment and marrow signal. Short segment linear cord signal change at the C6-C7 level with maximal AP diameter of 1.5 mm. This is most consistent with prominence of the central canal of the spinal cord. No additional cord signal change or abnormal cord enhancement. No extraspinal abnormality. Craniovertebral junction and C1-C2: Normal. C2-C3 through C7-T1: Normal disc height. No herniation. Normal facets. No spinal canal or neural foraminal stenosis. THORACIC SPINE: T4-T7 laminectomies. There is mild linear enhancement along the anterior margin of the laminectomy bed marginating the posterior aspect of the thecal sac favored to be a postoperative change. No obvious mass lesion identified. Thoracic vertebra are normal in height and alignment. The bone marrow pattern is normal. No appreciable central canal or foraminal stenosis. Procedure Note Rusty Stoner MD - 10/27/2024 EXAM: MR SPINE THORACIC WWO, MR SPINE CERVICAL WWO LOCATION: [facility] DATE: 10/27/2024 INDICATION: History of Meningioma surgery at T6-T7 February of last year- describes spasms of pain in back. COMPARISON: None. CONTRAST: Clariscan 20 ml TECHNIQUE: 1) MRI Cervical Spine without and with IV contrast. 2) MRI Thoracic Spine without and with IV contrast. FINDINGS: CERVICAL SPINE: Normal vertebral body heights, alignment and marrow signal. Short segmentlinear cord signal change at the C6-C7 level with maximal AP diameter of1.5 mm. This is most consistent with prominence of the central canal ofthe spinal cord. No additional cord signal change or abnormal cordenhancement. No extraspinal abnormality. Craniovertebral junction and C1-C2: Normal. C2-C3 through C7-T1: Normal disc height. No herniation. Normal facets. Nospinal canal or neural foraminal stenosis. THORACIC SPINE: T4-T7 laminectomies. There is mild linear enhancement along the anteriormargin of the laminectomy bed marginating the posterior aspect of thethecal sac favored to be a postoperative change. No obvious mass lesionidentified. Thoracic vertebra are normal in height and alignment. The bonemarrow pattern is normal. No appreciable central canal or foraminalstenosis. IMPRESSION: CERVICAL SPINE MRI: 1. No abnormal cord signal or abnormal cord enhancement. 2. No central canal or foraminal stenosis. THORACIC SPINE MRI: 1. Postsurgical changes of T4-T7 laminectomies. There is mild linearenhancement along the anterior margin of the surgical bed which is favoredto be postoperative in nature. No obvious mass lesion is identified. us Dennis Foster MD MR Final Re sult * MR Spine Thoracic w/wo Contrast (10/27/2024 2:07 AM CDT) Anatomical Region Laterality Modality Spine, THORACIC SPINE Magnetic R esonance 10/27/2024 2:07 AM CDT Impressions 10/27/2024 3:21 AM CDT CERVICAL SPINE MRI: 1. No abnormal cord signal or abnormal cord enhancement. 2. No central canal or foraminal stenosis. THORACIC SPINE MRI: 1. Postsurgical changes of T4-T7 laminectomies. There is mild linear enhancement along the anterior margin of the surgical bed which is favored to be postoperative in nature. No obvious mass lesion is identified. Narrative 10/27/2024 3:21 AM CDT EXAM: MR SPINE THORACIC WWO, MR SPINE CERVICAL WWO LOCATION: [facility] DATE: 10/27/2024 INDICATION: History of Meningioma surgery at T6-T7 February of last year - describes spasms of pain in back. COMPARISON: None. CONTRAST: Clariscan 20 ml TECHNIQUE: 1) MRI Cervical Spine without and with IV contrast. 2) MRI Thoracic Spine without and with IV contrast. FINDINGS: CERVICAL SPINE: Normal vertebral body heights, alignment and marrow signal. Short segment linear cord signal change at the C6-C7 level with maximal AP diameter of 1.5 mm. This is most consistent with prominence of the central canal of the spinal cord. No additional cord signal change or abnormal cord enhancement. No extraspinal abnormality. Craniovertebral junction and C1-C2: Normal. C2-C3 through C7-T1: Normal disc height. No herniation. Normal facets. No spinal canal or neural foraminal stenosis. THORACIC SPINE: T4-T7 laminectomies. There is mild linear enhancement along the anterior margin of the laminectomy bed marginating the posterior aspect of the thecal sac favored to be a postoperative change. No obvious mass lesion identified. Thoracic vertebra are normal in height and alignment. The bone marrow pattern is normal. No appreciable central canal or foraminal stenosis. Procedure Note Rusty Stoner MD - 10/27/2024 EXAM: MR SPINE THORACIC WWO, MR SPINE CERVICAL WWO LOCATION: [facility] DATE: 10/27/2024 INDICATION: History of Meningioma surgery at T6-T7 February of last year- describes spasms of pain in back. COMPARISON: None. CONTRAST: Clariscan 20 ml TECHNIQUE: 1) MRI Cervical Spine without and with IV contrast. 2) MRI Thoracic Spine without and with IV contrast. FINDINGS: CERVICAL SPINE: Normal vertebral body heights, alignment and marrow signal. Short segmentlinear cord signal change at the C6-C7 level with maximal AP diameter of1.5 mm. This is most consistent with prominence of the central canal ofthe spinal cord. No additional cord signal change or abnormal cordenhancement. No extraspinal abnormality. Craniovertebral junction and C1-C2: Normal. C2-C3 through C7-T1: Normal disc height. No herniation. Normal facets. Nospinal canal or neural foraminal stenosis. THORACIC SPINE: T4-T7 laminectomies. There is mild linear enhancement along the anteriormargin of the laminectomy bed marginating the posterior aspect of thethecal sac favored to be a postoperative change. No obvious mass lesionidentified. Thoracic vertebra are normal in height and alignment. The bonemarrow pattern is normal. No appreciable central canal or foraminalstenosis. IMPRESSION: CERVICAL SPINE MRI: 1. No abnormal cord signal or abnormal cord enhancement. 2. No central canal or foraminal stenosis. THORACIC SPINE MRI: 1. Postsurgical changes of T4-T7 laminectomies. There is mild linearenhancement along the anterior margin of the surgical bed which is favoredto be postoperative in nature. No obvious mass lesion is identified. us Dennis Foster MD MR Final Re sult * MR HEAD BRAIN W (10/27/2024 2:06 AM CDT) Anatomical Region Laterality Modality BRAIN, HEAD Magnetic Resonan ce 10/27/2024 2:06 AM CDT Impressions 10/27/2024 3:12 AM CDT 1. Multiple presumed meningiomas are again demonstrated without significant change compared with the study of 02/22/2024. Narrative 10/27/2024 3:12 AM CDT For Patients: As a result of the Cures Act, medical imaging exams and procedure reports are released immediately into your electronic medical record. You may view this report before your referring provider. If you have questions, please contact your health care provider. EXAM: MR HEAD BRAIN W LOCATION: [facility] DATE: 10/27/2024 INDICATION: History of meningiomas left vertex, reported history of MS. COMPARISON: MRI brain 10/26/2024, outside MRI 02/22/2024. TECHNIQUE: Routine multiplanar multisequence head MRI with intravenous contrast. CONTRAST: Clariscan 20 ml FINDINGS: INTRACRANIAL CONTENTS: Multiple dural-based enhancing extra-axial mass lesions are again demonstrated without significant change compared with the study of 02/22/2024. The largest lesion overlies the parasagittal left frontal convexity demonstrating a base of 13 mm and height of 6 mm. There is a 6 x 4 mm presumed meningioma arising along the anterior aspect of the interhemispheric falx. There is a 6 x 3 mm meningioma overlying the anterior left frontal lobe. There is a sessile meningioma overlying the lateral left frontal lobe. There is a 3 x 8 mm presumed meningioma in the parasagittal left parietal region. No significant mass effect associated with these lesions or evidence of underlying edema. OTHER: Accounting for technique no additional abnormalities identified. Procedure Note Rusty Stoner MD - 10/27/2024 For Patients: As a result of the Cures Act, medical imagingexams and procedure reports are released immediately into your electronicmedical record. You may view this report before your referring provider.If you have questions, please contact your health care provider. EXAM: MR HEAD BRAIN W LOCATION: [facility] DATE: 10/27/2024 INDICATION: History of meningiomas left vertex, reported history of MS. COMPARISON: MRI brain 10/26/2024, outside MRI 02/22/2024. TECHNIQUE: Routine multiplanar multisequence head MRI with intravenouscontrast. CONTRAST: Clariscan 20 ml FINDINGS: INTRACRANIAL CONTENTS: Multiple dural-based enhancing extra-axial masslesions are again demonstrated without significant change compared withthe study of 02/22/2024. The largest lesion overlies the parasagittal leftfrontal convexity demonstrating a base of 13 mm and height of 6 mm. Thereis a 6 x 4 mm presumed meningioma arising along the anterior aspect of theinterhemispheric falx. There is a 6 x 3 mm meningioma overlying theanterior left frontal lobe. There is a sessile meningioma overlying thelateral left frontal lobe. There is a 3 x 8 mm presumed meningioma in theparasagittal left parietal region. No significant mass effect associatedwith these lesions or evidence of underlying edema. OTHER: Accounting for technique no additional abnormalities identified. IMPRESSION: 1. Multiple presumed meningiomas are again demonstrated withoutsignificant change compared with the study of 02/22/2024. Dennis Foster MD MR Final Re sult * SCAN CORRESP-LABORATORY RESULTS (10/26/2024 11:35 AM CDT) Narrative 10/26/2024 11:35 AM CDT Ordered by an unspecified provider. us Other Clinical Staff OTHER Final Resul t * SCAN CORRESP-EKG RESULTS (10/26/2024 11:35 AM CDT) Narrative 10/26/2024 11:35 AM CDT Ordered by an unspecified provider. us Other Clinical Staff OTHER Final Resul t * SCAN CORRESP-DIAGNOSTICS (10/26/2024 11:35 AM CDT) Narrative 10/26/2024 11:35 AM CDT Ordered by an unspecified provider. us Other Clinical Staff OTHER Final Resul t * SCAN CORRESP-IMAGING (10/26/2024 11:35 AM CDT) Anatomical Region Laterality Modality Other Narrative 10/26/2024 11:35 AM CDT Ordered by an unspecified provider. us Other Clinical Staff OTHER Final Resul t * MR HEAD BRAIN WO (10/26/2024 1:04 AM CDT) Anatomical Region Laterality Modality BRAIN, HEAD Magnetic Resonan ce 10/26/2024 1:04 AM CDT Impressions 10/26/2024 2:04 AM CDT 1. No acute intracranial process. 2. Few scattered nonspecific foci of T2/FLAIR hyperintensity in the cerebral white matter. 3. Multiple small meningiomas were better seen on the prior contrast-enhanced images and suggest neurofibromatosis type II. Narrative 10/26/2024 2:04 AM CDT For Patients: As a result of the Cures Act, medical imaging exams and procedure reports are released immediately into your electronic medical record. You may view this report before your referring provider. If you have questions, please contact your health care provider. EXAM: MR HEAD BRAIN WO LOCATION: [facility] DATE: 10/26/2024 INDICATION: multiple sclerosis worsening COMPARISON: 02/22/2024 TECHNIQUE: Routine multiplanar multisequence head MRI without intravenous contrast. FINDINGS: Somewhat motion degraded examination. INTRACRANIAL CONTENTS: Multiple small meningiomas were better seen on the prior contrast-enhanced images. No acute or subacute infarct. No intra-axial mass, acute hemorrhage, or extra-axial fluid collections. Few scattered nonspecific foci of T2/FLAIR hyperintense signal in the cerebral white matter. Normal ventricles and sulci. Normal position of the cerebellar tonsils. SELLA: No abnormality accounting for technique. OSSEOUS STRUCTURES/SOFT TISSUES: Normal marrow signal. The major intracranial vascular flow voids are maintained. ORBITS: No abnormality accounting for technique. SINUSES/MASTOIDS: No paranasal sinus mucosal disease. No middle ear or mastoid effusion. Procedure Note Rusty Diaz MD - 10/26/2024 For Patients: As a result of the Cures Act, medical imagingexams and procedure reports are released immediately into your electronicmedical record. You may view this report before your referring provider.If you have questions, please contact your health care provider. EXAM: MR HEAD BRAIN WO LOCATION: [facility] DATE: 10/26/2024 INDICATION: multiple sclerosis worsening COMPARISON: 02/22/2024 TECHNIQUE: Routine multiplanar multisequence head MRI without intravenouscontrast. FINDINGS: Somewhat motion degraded examination. INTRACRANIAL CONTENTS: Multiple small meningiomas were better seen on theprior contrast-enhanced images. No acute or subacute infarct. Nointra-axial mass, acute hemorrhage, or extra-axial fluid collections. Fewscattered nonspecific foci of T2/FLAIR hyperintense signal in the cerebralwhite matter. Normal ventricles and sulci. Normal position of thecerebellar tonsils. SELLA: No abnormality accounting for technique. OSSEOUS STRUCTURES/SOFT TISSUES: Normal marrow signal. The majorintracranial vascular flow voids are maintained. ORBITS: No abnormality accounting for technique. SINUSES/MASTOIDS: No paranasal sinus mucosal disease. No middle ear ormastoid effusion. IMPRESSION: 1. No acute intracranial process. 2. Few scattered nonspecific foci of T2/FLAIR hyperintensity in thecerebral white matter. 3. Multiple small meningiomas were better seen on the priorcontrast-enhanced images and suggest neurofibromatosis type II. us Daya Cerna DO MR Fi nal Result * (ABNORMAL) CBC W PLT NO DIFF (10/25/2024 10:23 PM CDT) WHITE BLOOD COUNT 13.2(H) 4.5 - 11.0 thou/cu mm 10/25/2024 10:32 PM CDT [facility] RED BLOOD COUNT 4.75 4.00 - 5.20 mil/cu mm 10/25/2024 10:32 PM CDT [facility] HEMOGLOBIN 12.8 12.0 - 16.0 g/dL 10/25/2024 10:32 PM CDT [facility] HEMATOCRIT 38.6 33.0 - 51.0 % 10/25/2024 10:32 PM CDT [facility] MCV 81 80 - 100 fL 10/25/2024 10:32 PM CDT [facility] MCH 26.9 26.0 - 34.0 pg 10/25/2024 10:32 PM CDT [facility] MCHC 33.2 32.0 - 36.0 g/dL 10/25/2024 10:32 PM CDT [facility] RDW 13.6 11.5 - 15.5 % 10/25/2024 10:32 PM CDT [facility] PLATELET COUNT 399 140 - 440 thou/cu mm 10/25/2024 10:32 PM CDT [facility] MPV 10.1 6.5 - 11.0 fL 10/25/2024 10:32 PM CDT [facility] NRBC 0.0 % 10/25/2024 10:32 PM CDT [facility] ABS NRBC 0.0 thou /cu mm 10/25/2024 10:32 PM T [facility] Blood BLOOD SPECIMEN / Unknown Venipuncture / Unknown 10/25/2024 10:23 PM CDT 10/25/2024 10:30 PM CDT Daya Cerna DO HEMATOLOGY Fi nal Result [facility] [place]ENDOUT [place]IP [id number] [place] [address] * (ABNORMAL) COMP METABOLIC PANEL (10/25/2024 10:23 PM CDT) SODIUM 139 136 - 145 mmol/L 10/25/2024 10:[address] [facility] POTASSIUM 4.4 3.5 - 5.1 mmol/L 10/25/2024 10:[address] [facility] CHLORIDE 106 98 - 107 mmol/L 10/25/2024 10:[address] [facility] CO2,TOTAL 21(L) 22 - 29 mmol/L 10/25/2024 10:[address] [facility] ANION GAP 12 5 - 18 10/25/2024 10:[address] [facility] GLUCOSE 104(H) 70 - 99 mg/dL 10/25/2024 10:[address] [facility] CALCIUM 9.5 8.8 - 10.4 mg/dL 10/25/2024 10:[address] [facility] Comment: Reference ranges for this test were updated on 03/15/2024 to reflect our healthy population more accurately. Reference range changes are not retroactively applied to results, but previous results using the same methodology can be interpreted in the context of the new reference range. BUN 11 6 - 20 mg/dL 10/25/2024 10:50 PM T [facility] CREATININE 0.72 0.50 - 0.90 mg/dL 10/25/2024 10:50 PM T [facility] BUN/CREAT RATIO 15 10 - 20 5 10:50 PM T [facility] eGFR >90 >90 mL/min/1. 73m2 10/25/2024 10:[address] [facility] Comment:As of 2021, eG FR is calculated by the CKD-EPI creatinine equation without race adjustment. eGFR can be influenced by muscle mass, exercise, and diet. The reported eGFR is an estimation only and is only applicable if the renal function is stable. ALBUMIN 4.2 4.0 - 4.9 g/dL 10/25/2024 10:50 PM T [facility] PROTEIN,TOTAL 7.7 6.0 - 8.0 g/dL 10/25/2024 10:50 PM T [facility] BILIRUBIN,TOTAL 0.3 0.0 - 1.2 mg/dL 10/25/2024 10:[address] [facility] ALK PHOSPHATASE 92 35 - 104 IU/L 10/25/2024 10:50 PM CDT [facility] ALT (SGPT) 12 10 - 35 IU/L 10/25/2024 10:50 PM CDT [facility] AST (SGOT) 21 10 - 35 IU/L 10/25/2024 10:50 PM T [facility] Blood BLOOD SPECIMEN / Unknown Venipuncture / Unknown 10/25/2024 10:23 PM CDT 10/25/2024 10:30 PM CDT us Daya Cerna DO CHEMISTRY Fi nal Result [facility] [place] [address] [id number] [address] [place] [address] from Last 3 Months Insurance [facility] Member Subscriber Plan / Payer (Ef fective 2024-Present) Name:Bhakti Marrufo Relation to Subscriber:Self Name:Bhakti Marrufo Payer ID:Not on file Group ID:Not on file Type:Not on file Address: [employer] Advance Directives * Full Code (Latest Code Status on File) Date Activated Date Inactivated Comments 10/25/2024 6:01 PM 10/28/2024 7:17 PM Question Answer Comments Code Status Discussion: Reviewed Preferences Care Teams Atl[employer]ian Administrator Relationship Specialty Start Date End Date Pcp, No . PCP - General 10/25/24
--- NOTE | 2024-10-29 12:50 | ED.GENADULT ---
HPI - General Adult General Date Seen: 10/29/24 Chief complaint: Overdose Stated complaint: OVERDOSE Time Seen by Provider: 10/29/24 12:10 History of Present Illness HPI narrative: Patient is a 24-year-old here by police after mother called 911 this morning. According to police, they were called because she had locked herself in her bedroom and threatened to overdose. This reportedly happened between 10:30 and 11:00 a.m. this morning. According to patient, who is cooperative with me and provides a good history, she says that she was in her room painting, she was talking with her mother and she says that she became very frustrated because she told her mother that she felt as if she wanted to cut herself and she felt that her mom was dismissive of this and left her room. She says that she then did cut her leg repeatedly with a pair of scissors and then overdosed. She took 6 gabapentin and 20 citalopram, strength unknown at this time. She says that she did this in part because she did not want to be in pain anymore, in part to get her mom's attention. She says that she sort of wanted to although she says she does not really want to she just does not want to be in pain anymore. She has a fairly complex past recent history with meningioma removal in [place] in 2023, admission to [facility] 10/03/2024 after intubation for pain control by EMS with complaints of headache, negative workup at that time. Reported history at that time of MS, meningiomas of the brain and spinal cord. At [facility] records obtained from [place] showed that she was status post laminectomy due to multiple meningiomas of the spine in February of 2024. She had cranial imaging at that time that showed a left vertex meningioma otherwise negative. She was ultimately extubated, pain was managed and she was discharged home. At that time she was noted to be managed on baclofen and gabapentin as well as Celebrex and acetaminophen. She was subsequently seen at our hospital here on October 25 with complaints of generalized pain, headache, muscle spasms, nausea among others. She was transferred to [facility] where she was evaluated by Neurology. She had an MRI of the cervical and thoracic spine which were negative for any acute pathology. She had an MRI of the brain which was negative and a spot EEG which was negative. Baclofen was discontinued and she was started on tizanidine at discharge. She tells me that she does not have any mental health care, does not have a counselor or psychiatrist. She has been managed on citalopram for quite some time without any dose changes. She was taking Kratom, which she purchased at a smoke shop for management of her perceived MS symptoms, but she tells me she has discontinued that. She denies any other substance use. Denies prior mental health hospitalization. She says she generally gets along well with her mother who is her ?rock, which is why this morning's dismissiveness was so upsetting to her. Related Data Home Medications ?Medication ?Instructions ?Recorded ?Confirmed citalopram 20 mg tablet 20 mg PO DAILY 10/12/24 10/29/24 gabapentin 300 mg capsule 300 mg PO 3XD 10/12/24 10/29/24 sumatriptan succinate 25 mg tablet 25 mg PO 10/12/24 10/12/24 Allergies Allergy/AdvReac Type Severity Reaction Status Date / Time adhesive tape Allergy Verified 10/29/24 12:10 Review of Systems Status of ROS: Reports: 10 or more systems reviewed and unremarkable except as noted in History and below PFSH COUNT INCLUDES THE [facility] Medical History Anxiety ?F41.9 - Anxiety disorder, unspecified (ICD-10) Depression ?F32.A - Depression, unspecified (ICD-10) PTSD (post-traumatic stress disorder) ?F43.10 - Post-traumatic stress disorder, unspecified (ICD-10) Migraine with aura ?G43.109 - Migraine with aura, not intractable, without status migrainosus (ICD-10) Multiple sclerosis ?G35 - Multiple sclerosis (ICD-10) Meningioma ?D32.9 - Benign neoplasm of meninges, unspecified (ICD-10) Surgical History Meningioma, spinal ?D32.1 - Benign neoplasm of spinal meninges (ICD-10) Social History Smoking Status: Smoker, status unknown Do you use any of these nicotine containing products: Vaping Products Non-prescribed substance use: other Non-prescribed substance use details: Kratem Exam Const: Vital Signs, click to edit/add: Vital Signs - 24 hr 10/29/24 12:33 10/29/24 14:03 10/29/24 14:15 Temperature 98.0 F Pulse Rate 75 71 Pulse Rate [Pulse Oximeter] 80 Respiratory Rate 16 Blood Pressure Blood Pressure [Ri ght Upper Arm] 125/80 Pulse Oximetry 98 98 97 Oxygen Delivery Me thod Room Air 10/29/24 14:30 10/29/24 14:51 10/29/24 15:00 Temperature Pulse Rate 153 H 78 64 Pulse Rate [Pulse Oximeter] Respiratory Rate Blood Pressure Blood Pressure [Ri ght Upper Arm] Pulse Oximetry 98 98 96 Oxygen Delivery Me thod 10/29/24 15:15 10/29/24 15:30 10/29/24 15:45 Temperature Pulse Rate 64 75 72 Pulse Rate [Pulse Oximeter] Respiratory Rate Blood Pressure Blood Pressure [Ri ght Upper Arm] Pulse Oximetry 97 97 96 Oxygen Delivery Me thod 10/29/24 16:00 10/29/24 16:15 10/29/24 16:30 Temperature Pulse Rate 68 99 92 Pulse Rate [Pulse Oximeter] Respiratory Rate Blood Pressure Blood Pressure [Ri ght Upper Arm] Pulse Oximetry 97 98 96 Oxygen Delivery Me thod 10/29/24 16:45 10/29/24 17:00 10/29/24 17:15 Temperature Pulse Rate 74 99 109 H Pulse Rate [Pulse Oximeter] Respiratory Rate Blood Pressure Blood Pressure [Ri ght Upper Arm] Pulse Oximetry 94 96 97 Oxygen Delivery Me thod 10/29/24 17:30 10/29/24 17:32 10/29/24 17:45 Temperature Pulse Rate 92 83 76 Pulse Rate [Pulse Oximeter] Respiratory Rate Blood Pressure 125/78 Blood Pressure [Ri ght Upper Arm] Pulse Oximetry 98 98 96 Oxygen Delivery Me thod 10/29/24 18:00 10/29/24 18:15 10/29/24 18:30 Temperature Pulse Rate 81 93 106 H Pulse Rate [Pulse Oximeter] Respiratory Rate Blood Pressure Blood Pressure [Ri ght Upper Arm] Pulse Oximetry 97 96 99 Oxygen Delivery Me thod 10/29/24 18:45 10/29/24 19:00 10/29/24 19:15 Temperature Pulse Rate 101 H 92 88 Pulse Rate [Pulse Oximeter] Respiratory Rate Blood Pressure Blood Pressure [Ri ght Upper Arm] Pulse Oximetry 97 98 98 Oxygen Delivery Me thod Course Course ED Course: Following my initial conversation with her, I did order labs, an EKG was done, this shows a sinus rhythm with a ventricular rate of 71. QT corrected is 465 at this time. Poison Control consulted. They recommend repeat EKGs at 2:00 a.m. and 4:00 a.m., labs are pending. Will have her talk with telehealth as well. If QT prolongation develops, address with potassium magnesium if needed for replacement. Repeat EKGs show stable QT without concerning prolongation. We did watch her until 8:00 p.m., medically cleared at this time. She spoke with Jerry, Jerry also spoke with her mother Jessie, as did I. During her time here she has felt progressively better in terms of her head space. She did tell Jerry that she does not at all feel suicidal. She reiterated that to me. Her mother said that they have a number of family members around at this point and she feels that they can manage things at home. I discussed with her mom that while I do believe her that she is not suicidal and that this behavior this morning was not actually a suicide attempt, I do think it is a maladaptive id attempt to get her attention in a situation where she felt somewhat abandon or like her mom was disappointing her. Discussed with mom that that impulsivity and coping mechanism is still a concern to me. They do need to keep a close eye on her, and if they feel that things are not going well at home they can certainly come back at any time. Mom does have a counselor that she plans to call on Thursday and I encouraged them to pursue that as well. As such, will discharge home with mom, outpatient follow-up as discussed return any time for worsening. Vital Signs Vital signs: Initial Vital Signs Temperature 98.0 F 10/29/24 12:33 Temperature Source Temporal Artery Scan 10/29/24 12:33 Pulse Rate 80 10/29/24 12:33 Respiratory Rate 16 10/29/24 12:33 Blood Pressure 125/80 10/29/24 12:33 Blood Pressure Mean 95 10/29/24 12:33 Blood Pressure Position Sitting 10/29/24 12:33 Pulse Oximetry 98 10/29/24 12:33 Oxygen Delivery Method Room Air 10/29/24 12:33 Vital Signs Temperature 98.0 F 10/29/24 12:33 Pulse Rate 80 10/29/24 12:33 Respiratory Rate 16 10/29/24 12:33 Blood Pressure 125/80 10/29/24 12:33 Pulse Oximetry 98 10/29/24 12:33 Oxygen Delivery Method Room Air 10/29/24 12:33 Temperature 98.0 F 10/29/24 12:33 Pulse Rate 88 10/29/24 19:15 Respiratory Rate 16 10/29/24 12:33 Blood Pressure 125/78 10/29/24 17:32 Pulse Oximetry 98 10/29/24 19:15 Oxygen Delivery Method Room Air 10/29/24 12:33 Medications Administered Medications: Generic Name Dose Route Start Last Admin Trade Name Freq PRN Reason Stop Dose Admin Nicotine 1 patch 10/29/24 14:30 10/29/24 14:41 Nicotine 21 Mg Patch TRANSDERMA 1 patch Q24H HILLARY Administration Discontinued Medications Generic Name Dose Route Start Last Admin Trade Name Freq PRN Reason Stop Dose Admin Ketorolac Tromethamine 15 mg 10/29/24 17:09 10/29/24 17:33 Ketorolac 15 Mg/Ml Inj IVP 10/29/24 17:10 15 mg ONCE ONE Administration Medical Decision Making Lab Data Labs: Lab Results 10/29/24 10/29/24 Range/Units 12:28 12:47 WBC 11.94 H (4.50-11.00) K/uL RBC 4.78 (4.00-5.20) m/uL Hgb 12.7 (12.0-16.0) gm/dL Hct 39.6 (33.0-51.0) % MCV 83 (80-100) fL MCH 27 (26-34) pg MCHC 32 (32-36) gm/dL RDW Coeff of Cammy 13.7 (11.5-15.5) % Plt Count 413 (140-440) K/uL Neut % (Auto) 72.9 H (42.0-72.0) % Lymph % (Auto) 19.3 L (20-44) % [place] % (Auto) 7.5 (0.0-11.0) % Eos % (Auto) 0.0 (0.0-7.0) % Baso % (Auto) 0.1 (0.0-3.0) % Neut # (Auto) 8.70 H (1.7-7.0) K/uL Lymph # (Auto) 2.30 (0.90-2.90) K/uL [place] # (Auto) 0.90 (0.00-0.90) K/UL Eos # (Auto) 0.00 (0.00-0.50) K/uL Baso # (Auto) 0.00 (0.00-0.30) K/uL Abs Immat Gran (auto) 0.00 (0.00-0.30) K/uL Imm/Tot Granulo (auto) 0.2 % Sodium 142 (135-149) mmol/L Potassium 3.8 (3.6-5.1) mmol/L Chloride 108 (96-114) mmol/L Carbon Dioxide 24 (20-32) mmol/L Anion Gap 10 (7-15) mEq/L BUN 9 (5-24) mg/dL Creatinine 0.8 (0.5-1.5) mg/dL Estimated Creat Clear 90.47 Estimated GFR 106 ml/min Glucose 102 (60-115) mg/dL Calcium 9.7 (8.4-10.6) mg/dL Magnesium 2.0 (1.5-2.6) mg/dL Total Bilirubin 0.4 (0.1-1.5) mg/dL Direct Bilirubin 0.2 (0.0-0.5) mg/dL AST 28 (12-35) U/L ALT 23 (4-35) U/L Alkaline Phosphatase 82 (40-150) U/L Total Protein 8.2 (6.0-8.3) g/dL Albumin 4.8 (3.3-5.0) g/dL Urine Color Yellow (Yellow) Urine Appearance Clear (Clear) Urine pH 6.5 (5.0-8.5) Ur Specific [place] 1.015 (1.000-1.030) Urine Protein Negative (Negative) Urine Glucose (UA) Negative (Negative) Urine Ketones Negative (Negative) Urine Blood Negative (Negative) Urine Nitrite Negative (Negative) Urine Bilirubin Negative (Negative) Urine Urobilinogen 0.2 (0.2-1.0) Ur Leukocyte Esterase Negative (Negative) Urine RBC 0-2 (0-2) Urine WBC 0-2 (0-5) Ur Squamous Epith Cells Few (None-Few) Urine Bacteria None (None) Urine HCG, Qual Negative (Negative) Salicylates < 1.0 L (1.0-10) mg/dL Urine Opiates Screen Negative (Negative) Ur Oxycodone Screen Negative (Negative) Urine Methadone Screen Negative (Negative) Acetaminophen < 10.0 (10.0-30.0) ug/mL Ur Barbiturates Screen Negative (Negative) U Tricyclic Antidepress Negative (Negative) Ur Phencyclidine Scrn Negative (Negative) Ur Amphetamines Screen Negative (Negative) U Methamphetamines Scrn Negative (Negative) U Benzodiazepines Scrn POSITIVE A (Negative) Urine Cocaine Screen Negative (Negative) U Marijuana (THC) Screen POSITIVE A (Negative) Ur Drug Screen Comment See Note Ethyl Alcohol < 0.01 (0.01-0.03) % Discharge Plan Discharge Clinical Impression: Intentional overdose Patient Disposition: Home w/ Parent or Adult Condition: Improved Prescriptions: No Action sumatriptan succinate 25 mg tablet 25 mg PO citalopram 20 mg tablet 20 mg PO DAILY gabapentin 300 mg capsule 300 mg PO 3XD Follow Up/Referrals: Provider,Not a Local [Primary Care Provider, Family Practice] Stand Alone Forms: [employer] Info Instructions
[2024-10-29 12:56] LABS: Appearance Urine Clear (Clear); Bilirubin Urine Negative (Negative); Blood Urine Negative (Negative); Color Urine Yellow (Yellow); Glucose Urine Negative (Negative); Ketones Urine Negative (Negative); Leukocyte Esterase Urine Negative (Negative); Nitrite Urine Negative (Negative); Protein Urine Negative (Negative); Specific Gravity Urine 1.015 (1.000-1.030); Urobilinogen Urine 0.2 (0.2-1.0); pH Urine 6.5 (5.0-8.5)
[2024-10-29 13:00] LABS: Ur HCG Qualitative* Negative (Negative)
[2024-10-29 13:01] LABS: Basophils Percent Auto 0.1 % (0.0-3.0); Hematocrit 39.6 % (33.0-51.0); Hemoglobin* 12.7 gm/dL (12.0-16.0); Immature Granulocytes Pct Auto 0.2 %; Lymphocytes Percent Auto 19.3 % (20-44); Mean Corpuscular HGB Conc 32 gm/dL (32-36); Mean Corpuscular Hemoglobin 27 pg (26-34); Mean Corpuscular Volume 83 fL (80-100); Monocytes Percent Auto 7.5 % (0.0-11.0); Neutrophils Percent Auto 72.9 % (42.0-72.0); Platelet Count* 413 K/uL (140-440); RDW Coefficient of Variation % 13.7 % (11.5-15.5); Red Blood Count 4.78 m/uL (4.00-5.20); White Blood Count* 11.94 K/uL (4.50-11.00)
[2024-10-29 13:06] LABS: Slide Review Reflex No
[2024-10-29 13:08] LABS: Amphetamine Screen Urine Negative (Negative); Barbiturate Screen Urine Negative (Negative); Benzodiazepines Screen Urine POSITIVE (Negative); Cannabinoid Screen Urine POSITIVE (Negative); Cocaine Screen Urine Negative (Negative); Methadone Screen Urine Negative (Negative); Methamphetamines Screen Urine Negative (Negative); Opiate Screen Urine Negative (Negative); Oxycodone Screen Urine Negative (Negative); Phencyclidine Screen Urine Negative (Negative); Tricyclic Antidepressant Urine Negative (Negative)
[2024-10-29 13:13] LABS: Albumin* 4.8 g/dL (3.3-5.0); Chloride* 108 mmol/L (96-114); Sodium* 142 mmol/L (135-149)
[2024-10-29 13:14] LABS: Potassium* 3.8 mmol/L (3.6-5.1)
[2024-10-29 13:16] LABS: Alanine Aminotransferase* 23 U/L (4-35); Alkaline Phosphatase* 82 U/L (40-150); Anion Gap 10 mEq/L (7-15); Aspartate Amino Transferase* 28 U/L (12-35); Bilirubin Direct* 0.2 mg/dL (0.0-0.5); Bilirubin Total* 0.4 mg/dL (0.1-1.5); Blood Urea Nitrogen* 9 mg/dL (5-24); Calcium* 9.7 mg/dL (8.4-10.6); Carbon Dioxide* 24 mmol/L (20-32); Creatinine* 0.8 mg/dL (0.5-1.5); Est. Creatinine Clearance* 90.47; Estimated Glomerular Filt Rate 106 ml/min; Glucose* 102 mg/dL (60-115); Total Protein* 8.2 g/dL (6.0-8.3)
[2024-10-29 13:21] LABS: Acetaminophen* < 10.0 ug/mL (10.0-30.0); Ethanol* < 0.01 % (0.01-0.03); Salicylate* < 1.0 mg/dL (1.0-10)
[2024-10-29 13:25] LABS: RBC Urine 0-2 (0-2); Squamous Epithelial Cell Urine Few (None-Few); WBC Urine 0-2 (0-5)
[2024-10-29] MEDS: NICOTINE 21 MG PATCH 1 PATCH TRANSDERMA (14:41)
[2024-10-29] MEDS: KETOROLAC 15 MG/ML inj IVP (17:33)
== END 2024-10-29 20:10 | disposition home or self-care (01) ==
PROVIDERS: Emergency Provider Emergency Medicine
DX: T42.6X2A Poisoning by other antiepileptic and sedative-hypnotic drugs, intentional self-harm, initial encounter (principal)
CPT/HCPCS: 36415; 80048; 80076; 80143; 80179; 80306; 81001; 81025; 82077; 83735; 85025; 93005; 96374; 99284; J1885; S4990